=== PATIENT | male | born 1960 | race Caucasian/White ===

== ENCOUNTER 2023-08-26 15:41 | Inpatient (IN) ==
[2023-08-26 16:55] LABS: Basophils # (auto) 0.06 K/uL (0.00-0.20); Basophils % (auto) 0.3 %; Eosinophils # (auto) 0.03 K/uL (0.00-0.50); Eosinophils % (auto) 0.1 %; Hematocrit (blood only) 40.8 % (42.0-52.0); Hemoglobin 13.4 g/dl (14.0-18.0); Immature Granulocytes # (auto) 0.16 K/uL (0.01-0.20); Immature Granulocytes % (auto) 0.7 %; Lymphocytes # (auto) 1.85 K/uL (1.20-3.40); Lymphocytes % (auto) 8.2 %; Mean Corpuscular Hemoglobin 25.4 pg (25.0-34.0); Mean Corpuscular Hgb Conc 32.8 g/dL (32.0-36.0); Mean Corpuscular Volume 77.3 fL (80.0-100.0); Mean Platelet Volume 10.6 fL (9.4-12.4); Monocytes # (auto) 1.41 K/uL (0.11-0.59); Monocytes % (auto) 6.3 %; Neutrophils # (auto) 18.94 K/uL (1.40-6.50); Neutrophils % (auto) 84.4 %; Platelet Count 415 K/uL (130-400); RDW Coefficient of Variation 14.7 % (11.5-14.5); RDW Standard Deviation 40.7 fL (36.4-46.3); Red Blood Count 5.28 M/uL (4.70-6.10); White Blood Count 22.45 K/ul (4.8-10.8)
[2023-08-26 17:06] LABS: Albumin Globulin Ratio 0.9 (0.9-2); Albumin Level 4.2 gm/dl (3.4-5.0); BUN Creatinine Ratio 24.8 (10-20); Bilirubin,Total 0.7 mg/dl (0.2-1.0); Calcium 9.6 mg/dl (8.6-10.3); Creatinine Clr Calc Pharmacy 88.5 ml/min; Est GFR (African American) 80.9 ml/min; Est GFR (Non-African American) 69.8 ml/min; Globulin 4.8 gm/dl (2.5-4.0); Magnesium 1.9 mg/dl (1.7-2.4); Potassium 3.8 mmol/L (3.5-5.1)
[2023-08-26 17:13] LABS: Troponin I High Sensitivity 9.2 pg/ml (0-20)
[2023-08-26 17:19] LABS: INR 1.1 (0.9-1.1); Partial Thromboplastin Ratio 1.2; Partial Thromboplastin Time 31 Seconds (21-31); Prothrombin Time 11.7 Seconds (9.0-12.0)
--- NOTE | 2023-08-26 17:29 | XRay Report ---
XR foot RT min 3V routine CLINICAL HISTORY: redness, swelling, pain TECHNIQUE: 3 views of the right foot were obtained. Comparison: None available at the time of this dictation. FINDINGS: No fractures are present. The joint spaces are well preserved. Soft tissue swelling is seen about the foot. IMPRESSION: Soft tissue swelling is seen without evidence of underlying bony abnormality. ACT 112: Negative or not required by law. Electronically signed by: Conor Can M.D. 08/26/2023 5:28 PM
[2023-08-26] MEDS ORDERED: VANCOMYCIN CONSULT ACTIVE PRN (18:27)
[2023-08-26] MEDS: CEFEPIME 2,000 MG/20 ML VIAL IV STA (18:36)
--- NOTE | 2023-08-26 18:43 | Emergency Department Note ---
Impression & Plan Cellulitis, Leukocytosis, Diabetes, Acute hyponatremia ED Provider Note NAME: LAUREN ZEE AGE: 62 SEX: M : 1960 ARRIVES VIA: Walk-In INFORMANT: [Patient] ED PROVIDER(S): [Robert Small MD] CHIEF COMPLAINT: Foot infection HISTORY OF PRESENT ILLNESS: The patient is a 62-year-old diabetic. He states that several months ago, he had a sore on the underside of the right foot. He states that it seemed fine eventually. About a week ago, he noticed some bloody discharge when he was getting a shower. He states that 3 days ago, he noticed redness of the right foot. He has noticed some nausea, no fever. There has been no diarrhea, no flulike symptoms. No cough or cold or congestion. The patient states the redness is now creeping up his leg. PMHx/PSHx/Social Hx: See Below PHYSICAL EXAM: GENERAL: Patient is in no acute distress. HEENT: No acute trauma, normocephalic atraumatic, mucous membranes moist, no nasal congestion. NECK: No stridor, no adenopathy, no meningismus, trachea is midline. LUNGS: Clear to auscultation bilaterally, no wheeze, no rhonchi, breath sounds equal. HEART: Without murmurs gallops or rubs, regular rate and rhythm. ABDOMEN: Soft, nontender, no peritonitis. EXTREMITIES: No cyanosis. The patient has a collection of blood underneath the skin along the lateral aspect of the distal right foot involving the proximal aspect of the right fifth toe. There is surrounding erythema that is spreading up the dorsum of the foot and there are red streaks up the leg. There is no active drainage. There is an old healing lesion to the underside of the right distal lateral plantar foot. There is warmth present in the areas of erythema. NEUROLOGIC: Oriented x 3, no acute motor or sensory deficits, no focal weakness. SKIN: No jaundice, no diaphoresis. DIFFERENTIAL DIAGNOSIS: Osteomyelitis, cellulitis, abscess, bacteremia, among others. EMERGENCY DEPARTMENT PROCEDURES: Abscess drainage: This procedure was performed by me. Using sterile technique. An 18-gauge needle was used to open the collection of fluid/blood to the lateral aspect of the right foot. A dressing was applied. No complication. A culture was sent. MEDICAL DECISION MAKING: There is a significant leukocytosis at 22,000. This would be consistent with infection. No concerning anemia. Platelet count slightly elevated at 415. There was no coagulopathy. Renal panel testing showed acute hyponatremia with a sodium of 126. No renal failure. Cardiac enzyme testing x 1 was not consistent with acute cardiac injury. Lactic acid level was not elevated making severe sepsis less likely. Procalcitonin level was elevated, consistent with a bacterial source for infection. Urinalysis did not show findings of infection. Right foot film did not show osteomyelitis or fracture. Right foot CT did not show osteomyelitis, cellulitis was seen. The patient received IV vancomycin and IV cefepime. This was given for broad spectrum antibiotic coverage. The patient is in need of a hospital stay. I did speak with him about the admission. I was able to open the blood filled lesion along the lateral aspect of the foot. A culture was sent. I spoke with case management, the on-call hospitalist was consulted. Prior/Outside records/notes reviewed: None Imaging/x-ray results per my interpretation: Right foot film shows no fracture or dislocation, no osteomyelitis. Chronic Medical/Social conditions affecting care: History of diabetes. Care/Management discussed with: Case management, the on-call hospitalist. Level of care consideration(s): After review of the information above and other included data: --I believe the patient requires escalation of care to admission DISPOSITION: Admission Past Med/Surg History Problem List (Updated 08/27/23 @ 11:47 by Robert Small MD) Acute hyponatremia (Acute) Diabetes (Acute) Leukocytosis (Acute) Cellulitis (Acute) Peripheral neuropathy Diabetic infection of right foot Medical History Type 2 diabetes mellitus Social History Smoking Status: Former smoker Hx Alcohol Use: No Hx Substance Use: No Preferred Language: Icelandic Communication Ability: Effective Guest Services Ambassador Required: No Beliefs That Will Affect Care: None Current Living Situation: Alone Other Information That Helps Us Care for You: No Feels Safe at Home: Yes Safety Concerns: Feels Safe At This Time Assistive Devices: Denture - Upper and Glasses Allergies Allergies Allergy/AdvReac Type Severity Reaction Status Date / Time No Known Allergies Allergy Unverified 08/27/23 09:17 Home Meds Home Medications Medication Instructions Recorded Confirmed None (Patient States No Home Meds) ##0 11/20/09 Results & Data (ED) Vital Signs Vital Signs - 24 hr 08/26/23 15:48 08/26/23 18:35 08/26/23 18:35 Temperature 36.7 C Temperature Source Temporal Artery Scan Pulse Rate 112 H 88 Pulse Rate [Apical] 88 Pulse Rhythm [Apical] Regular Pulse Strength [Apical] Normal Respiratory Rate 24 Respiratory Effort / Characteristics Non-Labored Spontaneous Non-Labored Respiratory Depth Normal Normal Respiratory Pattern Regular Blood Pressure 151/74 H Blood Pressure [Right Arm] 159/82 H Blood Pressure Mean 99 Blood Pressure Mean [Right Arm] 107 Pulse Oximetry 95 96 96 Oxygen Delivery Method Room Air Room Air Room Air Sepsis Recent Fever Within 48 Hours No Sepsis New/Unexplained Change in Mental Status No Sepsis Action Taken by Nursing No Action Required 08/26/23 18:37 Temperature Temperature Source Pulse Rate 87 Pulse Rate [Apical] Pulse Rhythm [Apical] Pulse Strength [Apical] Respiratory Rate Respiratory Effort / Characteristics Respiratory Depth Respiratory Pattern Blood Pressure Blood Pressure [Right Arm] Blood Pressure Mean Blood Pressure Mean [Right Arm] Pulse Oximetry Oxygen Delivery Method Sepsis Recent Fever Within 48 Hours Sepsis New/Unexplained Change in Mental Status Sepsis Action Taken by [facility] Medications Current Medication List: was personally reviewed by me Laboratory Data Attestation: I reviewed the patient's lab results. 08/27/23 06:54 08/27/23 06:54 Lab Results 08/26/23 08/26/23 Range/Units 16:01 16:10 WBC 22.45 H (4.8-10.8) K/ul RBC 5.28 (4.70-6.10) M/uL Hgb 13.4 L (14.0-18.0) g/dl Hct 40.8 L (42.0-52.0) % MCV 77.3 L (80.0-100.0) fL MCH 25.4 (25.0-34.0) pg MCHC 32.8 (32.0-36.0) g/dL RDW Std Deviation 40.7 (36.4-46.3) fL RDW Coeff of Mel 14.7 H (11.5-14.5) % Plt Count 415 H (130-400) K/uL MPV 10.6 (9.4-12.4) fL Immature Gran % (Auto) 0.7 % Neut % (Auto) 84.4 % Lymph % (Auto) 8.2 % [place] % (Auto) 6.3 % Eos % (Auto) 0.1 % Baso % (Auto) 0.3 % Neut # (Auto) 18.94 H (1.40-6.50) K/uL Lymph # (Auto) 1.85 (1.20-3.40) K/uL [place] # (Auto) 1.41 H (0.11-0.59) K/uL Eos # (Auto) 0.03 (0.00-0.50) K/uL Baso # (Auto) 0.06 (0.00-0.20) K/uL Immature Gran # (Auto) 0.16 (0.01-0.20) K/uL PT 11.7 (9.0-12.0) Seconds INR 1.1 (0.9-1.1) APTT 31 (21-31) Seconds PTT Ratio 1.2 Sodium 126 L (136-145) mmol/L Potassium 3.8 (3.5-5.1) mmol/L Chloride 92 L (98-107) mmol/L Carbon Dioxide 23 (21-32) mmol/L Anion Gap 11 (3-11) BUN 28 H (6-23) mg/dl Creatinine 1.13 (0.6-1.4) mg/dl Est Cr Clr Drug Dosing 88.5 ml/min Est GFR ( Amer) 80.9 ml/min Est GFR (Non-Af Amer) 69.8 ml/min BUN/Creatinine Ratio 24.8 H (10-20) Glucose 186 H (70-99(Fasting)) mg/dl Lactate 1.6 (0.4-2.0) mmol/L Calcium 9.6 (8.6-10.3) mg/dl Magnesium 1.9 (1.7-2.4) mg/dl Total Bilirubin 0.7 (0.2-1.0) mg/dl AST 15 (13-39) U/L ALT 12 (7-52) U/L Alkaline Phosphatase 81 (34-104) U/L Troponin I High Sens 9.2 (0-20) pg/ml Total Protein 9.0 H (6.0-8.3) gm/dl Albumin 4.2 (3.4-5.0) gm/dl Globulin 4.8 H (2.5-4.0) gm/dl Albumin/Globulin Ratio 0.9 (0.9-2) Procalcitonin 1.04 H (0-0.5) ng/ml Administered Medications Enoxaparin Sodium (Enoxaparin Inj 40 Mg/0.4 Ml Syr) 40 mg SQ Q24H ANA Stop: 09/26/23 08:59 Last Admin: 08/27/23 08:09 Dose: 40 mg Documented By: CHINEDU Ampicillin Sodium/Sulbactam Sodium 3,000 mg/ Sodium Chloride 100 mls @ 200 mls/hr IV Q6H ANA Stop: 09/03/23 09:59 Last Infusion: 08/27/23 11:08 Dose: Infused Documented By: Admin: 08/27/23 10:29 Dose: 200 mls/hr Documented By: CHINEDU Insulin Aspart (Insulin Aspart Per Unit Charge) 0 units SC ACHS ANA Stop: 09/25/23 20:59 Last Admin: 08/27/23 08:06 Dose: 5 units Documented By: CHINEDU Co-signed By: JAIME Admin: 08/26/23 20:34 Dose: 3 units Documented By: KAMRYN Co-signed By: ELAYNE Discontinued Medications Cefepime HCl (Maxipime) 2,000 mg in 20 mls @ 5 mls/min IV NOW STA; Protocol Stop: 08/26/23 18:30 Last Admin: 08/26/23 18:36 Dose: 5 mls/min Documented By: TERRA Vancomycin HCl 2,750 mg/ (Sodium Chloride) 555 mls @ 200 mls/hr IV NOW ONE Stop: 08/26/23 21:13 Last Infusion: 08/26/23 23:31 Dose: Infused Documented By: Admin: 08/26/23 20:34 Dose: 200 mls/hr Documented By: KAMRYN Cefepime HCl 2,000 mg/ Syringe 27.5 mls @ 5 mls/min IV Q12H ANA; Protocol Stop: 09/02/23 06:29 Last Admin: 08/27/23 05:42 Dose: 5 mls/min Documented By: KAMRYN Vancomycin HCl 1,000 mg/ (Sodium Chloride) 270 mls @ 200 mls/hr IV Q12H ANA Stop: 09/03/23 07:59 Last Infusion: 08/27/23 10:06 Dose: Infused Documented By: Admin: 08/27/23 08:45 Dose: 200 mls/hr Documented By: CHINEDU Ioversol (Optiray 320 100ml) 93 ml IV ONCE ONE Stop: 08/26/23 18:57 Last Admin: 08/26/23 18:56 Dose: 93 ml Documented By: JASBIR Imaging Data Radiologist's Impression: Foot CT 08/26/23 18:27 Exam(s): CT RIGHT FOOT With Contrast IV Amt: 93 ML OPTIRAY 320 EXAM: CT Right Lower Extremity With Intravenous Contrast, Foot CLINICAL HISTORY: Poss osteo. TECHNIQUE: Axial computed tomography images of the right foot with intravenous contrast. CTDI is 19.67 mGy and DLP is 406.11 mGy-cm. Automated exposure control was utilized for the study. A dose lowering technique was utilized adhering to the principles of ALARA. CONTRAST: Patient received 93 ML OPTIRAY 320 of IV contrast COMPARISON: X-ray right foot 08-26-2023. FINDINGS: Bones/joints: No bone erosion, periosteal reaction or destruction to suggest osteomyelitis. No acute fracture. No dislocation. Soft tissues: Soft tissue swelling greatest surrounding lateral aspect of the foot centered at the distal fifth metatarsal. Cutaneous thickening, irregularity gas and enhancement of the at the level of the plantar aspect of the distal fifth metatarsal. No abnormal contrast enhancement. No radiopaque foreign body. IMPRESSION: Lateral and plantar soft tissue swelling centered at the distal aspect of the fifth metatarsal consistent with cellulitis. Focal cutaneous thickening, irregularity gas and enhancement of the at the level of the plantar aspect of the distal fifth metatarsal consistent with a phlegmon and possible small superficial ruptured abscess. No radiopaque foreign body. No underlying osseous changes to indicate osteomyelitis. Electronically signed by: Ronny Pizarro M.D. 08/26/23 23:41 PM Discharge Plan Visit Data Chief Complaint: Foot Injury/Pain Stated Complaint: RT FOOT PAIN ED Provider: Robert Small Discharge Problem: Cellulitis, Leukocytosis, Diabetes, Acute hyponatremia Patient Disposition: Admitted As Inpatient Condition: Good Discharge Instructions Interventions: ED Discharge Assessment Last Done: 07/19/24 20:28 Discharge Problem: Cellulitis Qualifiers: Site of cellulitis: extremity Site of cellulitis of extremity: lower extremity Laterality: right Qualified Code(s): L03.115 - Cellulitis of right lower limb Leukocytosis Qualifiers: Leukocytosis type: unspecified Qualified Code(s): D72.829 - Elevated white blood cell count, unspecified
[2023-08-26] MEDS: OPTIRAY 320 100ml IV ONE (18:56)
--- NOTE | 2023-08-26 19:26 | History & Physical Report ---
Date of Service August 26, 2023 Assessment & Plan (1) Diabetic infection of right foot: Plan: -Patient with abscess and surrounding cellulitis of the right foot. -Abscess drained done in the ED on the lateral aspect of the right distal foot. -X-ray showed soft tissues swelling without evidence of underlying bone abnormalities. -CT of the right foot taken and are pending read to rule out osteo-. -Blood cultures and wound cultures pending. -Leukocytosis of 22.4. Will repeat CBC in the a.m. -Started on vancomycin and cefepime in the ED. Continued on admission. (2) Type 2 diabetes mellitus: Plan: -Patient's home regimen held on admission, though patient does not know what he takes at home. -Continue BSG checks, sliding-scale insulin, hypoglycemic protocol -Hemoglobin A1c ordered in AM. (3) Peripheral neuropathy: Plan: -Patient with peripheral neuropathy on physical exam -Most likely secondary to diabetes. Should have outpatient follow-up with PCP. Plan Fluids: none Nutrition: DM2 Code status: DNR/DNI DVT ppx: Lovenox Dispo: med/surg History of Present Illness Chief Complaint: Diabetic foot infection Primary Care Provider: NO PCP Patient is a 62-year-old male who presents to the hospital with diabetic foot infection. Patient states that he has a history of diabetes though does not know what he is currently taking. Denies any other medical history. Patient had a sore on the underside of his right foot since Tuesday. Had some bloody discharge approximately 3 days ago. States that it is not painful. Though does state that he has decreased feeling on bilateral feet. He also noticed approximately 3 days ago the redness started to move up his leg. Denies any fever, chills, nausea, vomiting, abdominal pain, chest pain, cough, or congestion. Allergies Allergy/AdvReac Type Severity Reaction Status Date / Time No Known Allergies Allergy Unverified 08/27/23 09:17 Home Medications Medication Instructions Recorded Confirmed Type None (Patient States No Home Meds) ##0 11/20/09 History Past Med/Surg History Problem List (Updated 08/27/23 @ 11:47 by Robert Small MD) Acute hyponatremia (Acute) Diabetes (Acute) Leukocytosis (Acute) Cellulitis (Acute) Peripheral neuropathy Diabetic infection of right foot Medical History Type 2 diabetes mellitus Social History Smoking Status: Former smoker Hx Alcohol Use: No Hx Substance Use: No Preferred Language: Kinyarwanda Communication Ability: Effective Body Specialist Required: No Beliefs That Will Affect Care: None Current Living Situation: Alone Other Information That Helps Us Care for You: No Feels Safe at Home: Yes Safety Concerns: Feels Safe At This Time Assistive Devices: Denture - Upper and Glasses Review of Systems Review of Systems: All systems reviewed & are unremarkable except as noted in Subjective Physical Exam Physical Exam: Constitutional: well-appearing, no acute distress HEENT: NCAT, no conjunctival injection CV: regular rhythm, no murmur appreciated, extremities well-perfused, no LE edema Resp: CTABL, no wheezes/rales/rhonchi appreciated, no increased work of breathing GI: soft, nondistended, nontender, BS normoactive MSK: no gross deformities appreciated Skin: Right foot wrapped, erythema and warmth along right foot and up the right lower leg Neuro: alert, oriented, decreased sensation bilaterally under 1, 3, and 5th m etatarsal heads. Results & Data Results & Data Vital Signs (Past 12 Hours) Vital Signs Temp Pulse Pulse Resp BP BP Pulse Ox 08/26/23 18:37 87 08/26/23 18:35 88 24 159/82 H 96 08/26/23 18:35 88 24 96 08/26/23 15:48 36.7 C 112 H 15 151/74 H 95 O2 Del Method 08/26/23 18:37 08/26/23 18:35 Room Air 08/26/23 18:35 Room Air 08/26/23 15:48 Room Air Supervising Physician Co-Signing Physician Notes Attending addendum: I have physically seen this patient, have supervised the medical residents activities, and agree with the H&P unless as otherwise noted. Assessment and Plan: Diabetic foot infection right foot- Abscess drained in the ED Follow wound culture and sensitivity Follow blood culture and sensitivity Empiric antibiotic coverage with vancomycin IV and cefepime IV, already begun in the ED Arterial studies if symptoms unresponsive to treatment Diabetes mellitus- Glucose 186 on admission Patient unclear of what his medications are. Placed on Accu-Cheks NovoLog with SSI Check hemoglobin A1c Diabetic peripheral neuropathy- Apparent on examination Review medication list to see if he is presently being treated May deserve EMG and nerve conduction studies along with arterial studies above
[2023-08-26] MEDS ORDERED: GLUCOSE 10 TAB/TUBE PO PRN (20:20)
[2023-08-26] MEDS ORDERED: GLUCOSE 40% GEL 15 GM TUBE PO PRN (20:20)
[2023-08-26] MEDS ORDERED: ONDANSETRON INJ 2 MG/ML 2 ML VIAL IV PRN (20:20)
[2023-08-26] MEDS ORDERED: DEXTROSE 50% 50 ML SYRINGE IV PRN (20:20)
[2023-08-26] MEDS ORDERED: ACETAMINOPHEN 325 MG TAB PO PRN (20:20)
[2023-08-26] MEDS ORDERED: CARBOHYDRATES FOR HYPOGLYCEMIA PO PRN (20:20)
[2023-08-26] MEDS ORDERED: MELATONIN 3 MG TAB PO PRN (20:20)
[2023-08-26] MEDS ORDERED: GLUCAGON FOR INJ 1 MG VIAL SQ PRN (20:20)
[2023-08-26 20:28] LABS: Appearance Urine Clear (Clear); Bacteria Urine Automated None Seen (None Seen); Bilirubin Urine Negative (Negative); Blood Urine Negative (Negative); Cast Urine Automated 0-2 /lpf (0-2); Color Urine Yellow; Epithelial Cell Urine Auto 0-2 /hpf (0-2); Glucose Urine UA Negative (Negative); Ketones Urine 1+ (Negative); Leukocyte Esterase Urine Negative (Negative); Nitrite Urine Negative (Negative); Protein Urine 1+ (Negative); RBC Urine Automated 0-2 /hpf (0-2); Specific Gravity Urine 1.045 (1.000-1.030); Urobilinogen Urine Negative (Negative); WBC Urine Automated 0-5 /hpf (0-5)
[2023-08-26] MEDS: VANCOMYCIN HCL 2,750 MG in SODIUM CHLORIDE 0.9% 500 ML IV ONE (20:34)
[2023-08-26] MEDS: INSULIN ASPART PER UNIT CHARGE SC SCH (20:34)
--- OUTSIDE RECORDS SUMMARY | 2023-08-26 22:27 | External Medical Summary | Continuity of Care Document ---
Author Name Unknown Organization [facility] Address [address] [place] [address] Phone [phone] Problems Active Problems Provider Date Ex-smoker Aaron Whitney PA-C Onset: Essential hypertension Aaron Whitney PA-C Ons et: 12/22/2016 Hyperlipidemia Aaron Whitney PA-C Onset: Impotence of organic origin PRESTON Vargas Onset: 12/22/2016 Type II diabetes mellitus uncontrolled Aaron Whitney PA-C Onset: 12/22/2016 History of polyp of colon Aaron Whitney PA-C Onset: 12/22/2016 Obesity Aaron Whitney PA-C Onset: Generalized anxiety disorder ISRA Vargas Onset: 12/22/2016 Mixed hyperlipidemia Aaron Whitney PA-C Onset : 12/22/2016 Social History Type Date Description Comments Sex Unknown Cigarette Use 03/16/2023 Quit - Age 55 Tobacco Use Start: Unknown End: Unknown Former Cigarette Smoker Smoking Status Reviewed: 03/16/23 Former Cigarette Smo ker Tobacco Use Reviewed: 03/16/23 Never Smoked Cigars Tobacco Use Reviewed: 03/16/23 Never Smoked A Pipe Smokeless Tobacco 03/16/2023 Never Used Smokeless To bacco ETOH Use Rarely consumes alcohol Recreational Drug Use Denies Drug Use Allergies and adverse reactions Description No Known Drug Allergies Medications Active Medications SIG Qnty Indications Order ing Provider Date Ferrous Xgnauaq490(65Fe) mg Tablets take 1 tablet by mouth twice a day 180tabs Елена Young MD 08/23/2022 Onetouch VerioStrips use 1 Test Strip to Test Blood Sugar once daily 200units Hector Hsu JR, MD 07/30/2022 Trulicity1.5mg/0.5ML Solution Pen-Inject inject 0.5 milliliters once weekly 6ml Елена Young MD 05/24/2022 Vitamin [id number]-[id number] Tablets Sub take 2 tablets by mouth daily 180tabs Елена Young MD 01/12/2022 Lisinopril-Hydrochlo ghdxnmeznr81-52.5mg Tablets Take 1 Tablet By Mouth Once Daily 90tabs I10 Елена Young MD 12/09/2021 Cetirizine SOW22fd Tablets 1 by mouth every day 90tabs Елена Young MD 06/11/[address] take 1 tablet by mouth daily 90caps Елена Young MD 11/05/2020 Metoprolol Acamylhd15vu Tablets take 1 tablet by mouth twice a day 180tabs I48.0 Елена Young MD 11/05/2020 Fast Acting H259417yrj Tablets Sub 2 by mouth every day 180tabs D64.9 Víctor Blancas MD 11/05/2020 Metformin QPG8715mz Tablets take 1 tablet by mouth twice a day 180tabs Елена Young MD 06/05/2019 NebulizerMisc with supplies - use as directed 1units R05 Hector Hsu JR, MD 04/30/2019 R06.2 Z87.891 Ipratropium [place]/Albutero l Sulfate0.5-2.5(3)mg/3ML Solution use in nebulizer four times daily as needed 90units R05 Hector Hsu JR, MD 04/30/2019 Glipizide ER10mg Tablets ER 24HR Take One Tablet By Mouth Twice A Day 180tabs E11.65 Елена Young MD 01/22/2019 Utjffkgvjxu872es Tablets take 1 tablet b y mouth twice a day 180tabs Елена Young MD 01/09/2019 Atorvastatin Hzcuupp17cm Tablets Take 1 Tablet By Mouth Every Evening 90tabs E78.2 Елена Young MD 11/03/2018 History Medications Diclofenac Sodium1% Gel apply 4gm to affected area four times daily as needed 900gm Елена Young MD 02/21/2023 - 02/28/2023 Purbaapyxe15iz Tablets two tablets x 5 days then one tablet daily x 5 days 15tabs Елена Young MD 02/21/2023 - 03/16/2023 Medications Administered in Office Medication SIG Qnty Indications Ordering Provider Date Injection Kenalog 10 MG [facility] [id number] Gage Addison 03/16/2023 Immunizations CPT Code Status Date Vaccine Lot # [id number] Given 01/06/2021 Moderna Covid-1 9 Vaccine 50mcg Booster-EMR Doc Only [id number] 86487 Given 10/16/2020 Influenza Vaccine-Adminis tered at another facility 53694 Given 10/16/2020 Pneumococcal Conjugate-Pr evnar 13 [id number] Given 06/06/2020 Moderna Sars-Co v-2 (Cov-19) vacc,100 mcg/ 0.5 mL 12Y+EMR Doc Only [id number] 64958 Given 05/09/2020 Moderna Sars-Co v-2 (Cov-19) vacc,100 mcg/ 0.5 mL 12Y+EMR Doc Only [id number] 76050 Given 10/08/2019 Influenza Vaccine-Adminis tered at another facility 72212 Given 10/08/2019 Shingrix 45433 Given 09/14/2019 Pneumococcal Vaccine/Pneu movax 23 [id number] 99316 Given 08/05/2019 Shingrix 33579 Given 10/25/2018 Influenza Virus Vaccine, Quadrivalent (Cciiv4), Derived From Cell 85691 Given 05/05/2018 Pneumococcal Vaccine/Pneu movax 23 [id number] 73345 Given 05/05/2018 Tdap (Tetanus, diphtheria & acel. pertussis) Adacel or Boostrix [id number] 10198 Given 11/12/2017 Influenza Virus Vaccine, Quadrivalent (Cciiv4), Derived From Cell 24436 Given 12/22/2016 Pneumococcal Conjugate-Pr evnar 13 [id number] 21403 Given 11/09/2016 Influenza Vaccine-Adminis tered at another facility Vital Signs Date Vital Result Comment 03/16/2023 9:04am BP Systolic 136 mmHg BP Diastolic 80 mmHg Body Temperature 98.6 F Heart Rate 70 /min Weight 259.00 lb Weight 117.482 kg Height 72 inches 6'0" BMI (Body Mass Index) 35.1 kg/m2 O2 % BldC Oximetry 97 % [place] Body Weight 178 lb 02/21/2023 3:17pm BP Systolic 122 mmHg BP Diastolic 82 mmHg Body Temperature 98.2 F Heart Rate 68 /min Weight 258.25 lb Weight 117.142 kg Height 72 inches 6'0" BMI (Body Mass Index) 35.0 kg/m2 O2 % BldC Oximetry 98 % [place] Body Weight 178 lb Results Test Acquired Date Facility Test Result H/L Range N ote Comp. Met 02/16/2023 [facility]. [address] [place] [address] [phone] Glucose 176 mg/dL High 70-110 BUN 19 mg/dL 6-25 Creatinine 1.1 mg/dL 0.7-1.3 Sodium 134 mEq/L Low 135-145 Potassium 4.9 mEq/L 3.5-5.0 Chloride 99 mEq/L 95-107 Co-2 23 mEq/L Low 24-31 Alk Phos 76 IU/L 43-122 Alt(SGPT) 16 IU/L 10-40 Ast(Sgot) 18 IU/L 3-42 T.Bilirubin 0.4 mg/dL 0.1-1.3 Calcium 9.8 mg/dL 8.5-10.6 Tot.Protein 7.7 g/dL 5.8-8.0 Albumin 4.5 g/dL 3.0-5.2 Globulin 3.2 g/dL 2.0-3.4 GFR 72 ML/MIN/1.73SQM >60 Lipid 02/16/2023 [facility]. [address] [place] [address] [phone] Cholesterol 132 mg/dL 0-200 1 Triglyceride 238 mg/dL High 0-150 2 HDLD 32 mg/dL See Comment 3 Measured LDL 82 mg/dL 0-130 4 Calc VLDL 47.6 mg/dL See Comment 5 Chol/HDL 4.1 RATIO See Comment 6 Non-HDL 100 mg/dL See Comment 7 Laboratory test finding 02/16/2023 [facility] [address] [place] [address] [phone] TSH 2.46 uIU/mL 0.50-6.00 Uric Acid 6.6 mg/dL 2.5-7.5 Hba1c 02/16/2023 [facility] [address] [place] [address] [phone] A1c 10.40 % High 4.70-6.50 8 CBC W/Diff 02/16/2023 [facility] [address] [place] [address] [phone] WBC 9.5 10^3/M3 High 3.1-9.2 RBC 5.71 10^6/M3 4.00-5.80 HGB 13.9 GR/DL 12.5-17.5 HCT 44.0 % 37.5-52.5 MCV 77.0 CUMICR Low 82.6-95.8 MCH 24.4 PICOGR Low 27.9-32.9 MCHC 31.6 % Low 32.6-35.4 RDW 16.4 % High 11.4-14.6 PLT 357 10^3/M3 High 140-350 MPV 8.8 CUMICR 7.0-10.6 %Neut 68.0 % 40.0-75.0 %Lymph 22.6 % 17.0-45.0 %[place] 6.4 % 1.0-11.0 %Eos 2.2 % 0.0-6.0 %Baso 0.8 % 0.0-2.0 #Neut 6.5 10^3/M3 1.5-8.0 #Lymph 2.2 10^3/M3 0.8-3.2 #[place] 0.6 10^3/M3 0.0-0.8 #Eos 0.2 10^3/m3 0.0-0.4 #Baso 0.1 10^3/m3 0.0-0.2 Hypochrom 1+ Urinalysis,Cult If Indicated 02/16/2023 [facility] [address] [place], [place] [id number] [phone] RFLX Culture NO Laboratory test finding 02/16/2023 [facility] [address] [place] [address] [phone] Psa2 1.1 ng/mL 0.0-4.0 Microalbumin Urine 02/16/2023 Replaced by [facility]. [address] [place] [address] [phone] Urine Creat 102 mg/dL Comment Microalbumin 1.7 mg/dL 0.0-1.8 9 ug/mgCREATININE 17 ug/mg 0-29 Urinalysis 02/16/2023 [facility] [address] [place] [address] [phone] Color LIGHT-YELLOW Appearance CLEAR Clear Spec.Grav. 1.017 1.005-1.025 Leukocytes NEGATIVE Negative Nitrite NEGATIVE Negative PH 5.5 Low 6.0-7.5 Protein NEGATIVE Negative Urine Glucose NEGATIVE Negative Ketone NEGATIVE Negative Urobilinogen NORMAL E.U./DL Normal Bilirubin NEGATIVE Negative Blood NEGATIVE Negative WBC-U 0-2 /HPF 0-5/HPF RBC-U 0-2 /HPF 0-5/HPF Bacteria NONE SEEN None Seen Hyaline Casts 6-10 /LPF Abnormal None Seen Squamous NONE SEEN /HPF 0-5/HPF 1 CHOLESTEROL Less than 200mg/dl Low risk 201-239 mg/dl Borderline risk Equal to or greater 240mg/dl High risk 2 TRIGLYCERIDES Less than 150mg/dl Normal 150-199mg/dl Borderline 200-499mg/dl High Greater than 500mg/dl Very High 3 HDL <40mg/dl Elevated Risk 41-59mg/dl Risk >=60mg/dl Least Risk 4 LDL <100mg/dl Optimal 100-129mg/dl Near Optimal 130-159mg/dl Borderline High 160-189mg/dl High >=190 Very High 5 VLDL Less than 30mg/dl Normal 6 CHOL/HDL <4.0 Optimal 4.0-5.0 Borderline >6.0 High Risk 7 NON-HDL 30mg/dl higher than LDL Target 8 MEAN GLUCOSE IN mg/d L/A1c% POOR CONTROL FAIR CONTROL GOOD CONTROL EXCELLENT CONTROL 360-14 210-9 180-8 120-6 330-13 150-7 90-5 300-12 270-11 240-10 9 *[employer] USES MICROALBUMIN/CREATINE RATIO : *<30 ug/mg CREATININE IS CLASSIFIED NORMAL *30-300 ug/mg CREATININE IS CLASSIFIED CLINICAL MICROALBUMINURIA *>300 ug/mg CREATININE IS CLASSIFIED CLINICAL ALBUMINURIA CLASSIFICATION OF A PATIENT SHOULD BE BASED ON TWO OF THREE ABNORMAL RESULTS COLLECTED WITHIN A 3 TO 6 MONTH TIME FRAME* Procedures Date Code Description Status 03/16/2023 M1211 Hemoglobin a1c level >9.0% C ompleted 03/16/2023 J3301 Injection Kenalog 10 MG [facility] [id number] Completed 03/16/2023 27592 Inject/Drain Arthrocentesis Major Joint/Bursa Completed 02/21/2023 3079F PVRP Diastolic BP 80-89 MMHG Completed 02/21/2023 3074F PVRP Systolic BP <130 mmHg C ompleted 02/21/2023 3046F PVRP HGB-A1c > 9.0% Complete d 02/16/2023 11955 Venipuncture Routine Complet ed 06/04/2021 [id number] Colonoscopy Completed Medical Devices Description No Information Available Encounters Type Date Location Provider Dx Diagnosis Office Visit 03/16/2023 9:15a Natasha Sandoval PA-C M75.52 Bursitis of left shoulder E11.65 Type 2 diabetes lorri itus with hyperglycemia Office Visit 02/21/2023 3:30p Natasha rodas PA-C Z00.01 Encounter for general adult medical exam w abnormal findings I10 Essential (primary) hypertension E78.2 Mixed hyperlipidemia E11.65 Type 2 diabetes lorri itus with hyperglycemia I48.0 Paroxysmal atrial fi brillation 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, unspecified M75.52 Bursitis of left kuldip ulder Assessments Date Code Description Provider 03/16/2023 M75.52 Bursitis of left shoulder Cameron Sandoval PA-C 03/16/2023 E11.65 Type 2 diabetes mellitus wit h hyperglycemia Enrique Sandoval PA-C 02/21/2023 Z00.01 Encounter for ge neral adult medical examination with abnormal findings Enrique Sadnoval PA-C 02/21/2023 I10 Essential (primary) hyperten misty Enrique Sandoval PA-C 02/21/2023 E78.2 Mixed hyperlipidemia Enrique Sandoval PA-C 02/21/2023 E11.65 Type 2 diabetes mellitus wit h hyperglycemia Enrique Sandoval PA-C 02/21/2023 I48.0 Paroxysmal atrial fibrillati on Enrique Sandoval PA-C 02/21/2023 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, unsp ecified Enrique Sandoval PA-C 02/21/2023 M75.52 Bursitis of left shoulder Cameron Sandoval PA-C 02/16/2023 I10 Essential (primary) hyperten misty Елена Young MD 02/16/2023 I10 Essential (primary) hyperten misty Lab - [facility] 02/16/2023 E78.2 Mixed hyperlipidemia Елена Young MD 02/16/2023 E78.2 Mixed hyperlipidemia Lab - [place] 02/16/2023 E11.65 Type 2 diabetes mellitus wit h hyperglycemia Елена Young MD 02/16/2023 E11.65 Type 2 diabetes mellitus wit h hyperglycemia Lab - [facility] 02/16/2023 Z00.01 Encounter for ge neral adult medical examination with abnormal findings Елена Young MD 02/16/2023 Z00.01 Encounter for ge neral adult medical examination with abnormal findings Lab - [facility] 02/16/2023 N40.0 Benign prostatic hyperplasia without lower urinary tract symptoms Елена Young MD 02/16/2023 N40.0 Benign prostatic hyperplasia without lower urinary tract symptoms Lab - [facility] Plan of Treatment Future Appointment(s):* 08/22/2023 3:00 pm - Enrique Sandoval PA-C at [facility] * 08/16/2023 8:15 am - Lab - [facility] 03/16/2023 - Enrique Sandoval PA-C* M75.52 Bursitis of left shoulder* Comments:* Requesting injection Advised to consider physical therapy and PT if symptoms persist * E11.65 Type 2 diabetes mellitus with hyperglycemia* Comments:* Aware to notify us of blood sugar spike Noncompliant and monitoring blood sugars * Recommendations:* Follow diabetic diet. Continue medications as prescribed. Functional Status Description No Information Available Mental Status Description No Information Available Referrals Description No Information Available
--- OUTSIDE RECORDS SUMMARY | 2023-08-26 22:27 | External Medical Summary ---
Continuity of Care Document (CCD) Created on: March 16, 2023 Bob Vides External Reference #: [id number] : 1960 Sex: Male Author Name Unknown Organization [facility] Address [address] [place] [address] Phone [phone] Problems Active Problems Provider Date Ex-smoker Aaron [...] Qnty Indications Order ing Provider Date Ferrous Fvnujxs532(65Fe) mg Tablets take 1 tablet by mouth twice a day 180tabs Елена Young MD 08/23/2022 Onetouch VerioStrips use 1 Test Strip to Test Blood Sugar once daily 200units Hector Hsu JR, MD 07/30/2022 Trulicity1.5mg/0.5ML Solution Pen-Inject inject 0.5 milliliters once weekly 6ml Елена Young MD 05/24/2022 Vitamin B-735093coz Tablets Sub take 2 tablets by mouth daily 180tabs Елена Young MD 01/12/2022 Lisinopril-Hydrochlo llmlrysriw40-41.5mg Tablets Take 1 Tablet By Mouth Once Daily 90tabs I10 Елена Young MD 12/09/2021 Cetirizine WOU45sb Tablets 1 by mouth every day 90tabs Елена Young MD 06/11/[address] take 1 tablet by mouth daily 90caps Елена Young MD 11/05/2020 Metoprolol Wdnbxiwj96ob Tablets take 1 tablet by mouth twice a day 180tabs I48.0 Елена Young MD 11/05/2020 Fast Acting Z927406sxq Tablets Sub 2 by mouth every day 180tabs D64.9 Víctor Blancas MD 11/05/2020 Metformin VPU6538ss Tablets take 1 tablet by mouth twice a day 180tabs Елена Young MD 06/05/2019 NebulizerMisc with supplies - use as directed 1units R05 Hector Hsu JR, MD 04/30/2019 R06.2 Z87.891 Ipratropium [place]/Albutero l Sulfate0.5-2.5(3)mg/3ML Solution use in nebulizer four times daily as needed 90units R05 Hector Hsu JR, MD 04/30/2019 Glipizide ER10mg Tablets ER 24HR Take One Tablet By Mouth Twice A Day 180tabs E11.65 Елена Young MD 01/22/2019 Ajbostipgit005cn Tablets take 1 tablet b y mouth twice a day 180tabs Елена Young MD 01/09/2019 Atorvastatin Hqjicvi14zy Tablets Take 1 Tablet By Mouth Every Evening 90tabs E78.2 Елена Young MD 11/03/2018 History Medications Diclofenac Sodium1% Gel apply 4gm to affected area four times daily as needed 900gm Елена Young MD 02/21/2023 - 02/28/2023 Izpddcxwia66dw Tablets two tablets x 5 days then one tablet daily x 5 days 15tabs Елена Young MD 02/21/2023 - 03/16/2023 Medications Administered in Office Medication SIG Qnty Indications Ordering Provider Date Injection Kenalog 10 MG [facility] [id number] Gage Addison 03/16/2023 Immunizations CPT Code Status Date Vaccine Lot # [id number] Given 01/06/2021 Moderna Covid-1 9 Vaccine 50mcg Booster-EMR Doc Only [id number] 04093 Given 10/16/2020 Influenza Vaccine-Adminis tered at another facility 97557 Given 10/16/2020 Pneumococcal Conjugate-Pr evnar 13 [id number] Given 06/06/2020 Moderna Sars-Co v-2 (Cov-19) vacc,100 mcg/ 0.5 mL 12Y+EMR Doc Only [id number] 21801 Given 05/09/2020 Moderna Sars-Co v-2 (Cov-19) vacc,100 mcg/ 0.5 mL 12Y+EMR Doc Only [id number] 85977 Given 10/08/2019 Influenza Vaccine-Adminis tered at another facility 00097 Given 10/08/2019 Shingrix 09543 Given 09/14/2019 Pneumococcal Vaccine/Pneu movax 23 [id number] 69424 Given 08/05/2019 Shingrix 81581 Given 10/25/2018 Influenza Virus Vaccine, Quadrivalent (Cciiv4), Derived From Cell 29678 Given 05/05/2018 Pneumococcal Vaccine/Pneu movax 23 [id number] 18928 Given 05/05/2018 Tdap (Tetanus, diphtheria & acel. pertussis) Adacel or Boostrix [id number] 59735 Given 11/12/2017 Influenza Virus Vaccine, Quadrivalent (Cciiv4), Derived From Cell 08147 Given 12/22/2016 Pneumococcal Conjugate-Pr evnar 13 [id number] 85324 Given 11/09/2016 Influenza Vaccine-Adminis tered at another facility Vital Signs Date Vital Result Comment 03/16/2023 9:04am BP Systolic 136 mmHg BP Diastolic 80 mmHg Body Temperature 98.6 F Heart Rate 70 /min Weight 259.00 lb Weight 117.482 kg Height 72 inches 6'0" BMI (Body Mass Index) 35.1 kg/m2 O2 % BldC Oximetry 97 % [place] Body Weight 178 lb 02/21/2023 3:17pm BP Systolic 122 mmHg BP Diastolic 82 mmHg Body Temperature 98.2 F Heart Rate 68 /min Weight 258.25 lb Weight 117.142 kg Height 72 inches 6'0" BMI (Body Mass Index) 35.0 kg/m2 O2 % BldC Oximetry 98 % [place] Body Weight 178 lb Results Test Acquired Date Facility Test Result H/L Range N ote Comp. Met 02/16/2023 [facility]. [address] [place] [address] [phone] Glucose 176 mg/dL High 70-110 BUN 19 [...] 2.0-3.4 GFR 72 ML/MIN/1.73SQM >60 Lipid 02/16/2023 [facility]. [address] [place] [address] [phone] Cholesterol 132 mg/dL 0-200 1 Triglyceride 238 mg/dL High 0-150 2 HDLD 32 mg/dL See Comment 3 Measured LDL 82 mg/dL 0-130 4 Calc VLDL 47.6 mg/dL See Comment 5 Chol/HDL 4.1 RATIO See Comment 6 Non-HDL 100 mg/dL See Comment 7 Laboratory test finding 02/16/2023 [facility]. [address] [place] [address] [phone] TSH 2.46 uIU/mL 0.50-6.00 Uric Acid 6.6 mg/dL 2.5-7.5 Hba1c 02/16/2023 [facility]. [address] [place] [address] [phone] A1c 10.40 % High 4.70-6.50 8 CBC W/Diff 02/16/2023 [facility]. [address] [place] [address] [phone] WBC 9.5 10^3/M3 High 3.1-9.2 RBC 5.71 10^6/M3 4.00-5.80 HGB 13.9 GR/DL 12.5-17.5 HCT 44.0 % 37.5-52.5 MCV 77.0 CUMICR Low 82.6-95.8 MCH 24.4 PICOGR Low 27.9-32.9 MCHC 31.6 % Low 32.6-35.4 RDW 16.4 % High 11.4-14.6 PLT 357 10^3/M3 High 140-350 MPV 8.8 CUMICR 7.0-10.6 %Neut 68.0 % 40.0-75.0 %Lymph 22.6 % 17.0-45.0 %[place] 6.4 % 1.0-11.0 %Eos 2.2 % 0.0-6.0 %Baso 0.8 % 0.0-2.0 #Neut 6.5 10^3/M3 1.5-8.0 #Lymph 2.2 10^3/M3 0.8-3.2 #[place] 0.6 10^3/M3 0.0-0.8 #Eos 0.2 10^3/m3 0.0-0.4 #[place]o 0.1 10^3/m3 0.0-0.2 Hypochrom 1+ Urinalysis,Cult If Indicated 02/16/2023 [facility]. [address] [place], [place] [address] [phone] RFLX Culture NO Laboratory test finding 02/16/2023 [facility]. [address] [place] [address] [phone] Psa2 1.1 ng/mL 0.0-4.0 Microalbumin Urine 02/16/2023 [facility]. [address] [place] [address] [phone] Urine Creat 102 mg/dL Comment Microalbumin 1.7 mg/dL 0.0-1.8 9 ug/mgCREATININE 17 ug/mg 0-29 Urinalysis 02/16/2023 [facility]. [address] [place] [address] [phone] Color LIGHT-YELLOW Appearance CLEAR Clear Spec.Grav. 1.017 [...] 150-7 90-5 300-12 270-11 240-10 9 *[employer] USES MICROALBUMIN/CREATINE RATIO : [...] ompleted 03/16/2023 J3301 Injection Kenalog 10 MG [facility] [id number] Completed 03/16/2023 06616 Inject/Drain Arthrocentesis Major Joint/Bursa Completed 02/21/2023 3079F PVRP Diastolic BP 80-89 MMHG Completed 02/21/2023 3074F PVRP Systolic BP <130 mmHg C ompleted 02/21/2023 3046F PVRP HGB-A1c > 9.0% Complete d 02/16/2023 59417 Venipuncture Routine Complet ed 06/04/2021 [id number] Colonoscopy Completed Medical Devices Description No Information [...] adult medical examination with abnormal findings Enrique Sandoval PA-C 02/21/2023 I10 Essential (primary) hyperten misty [...] I10 Essential (primary) hyperten misty Lab - [facility] 02/16/2023 E78.2 Mixed hyperlipidemia Елена Young MD 02/16/2023 E78.2 Mixed hyperlipidemia Lab - [place] 02/16/2023 E11.65 Type 2 diabetes mellitus wit h hyperglycemia Елена Young MD 02/16/2023 E11.65 Type 2 diabetes mellitus wit h hyperglycemia Lab - [facility] 02/16/2023 Z00.01 Encounter for ge neral adult medical examination with abnormal findings Елена Young MD 02/16/2023 Z00.01 Encounter for ge neral adult medical examination with abnormal findings Lab - [facility] 02/16/2023 N40.0 Benign prostatic hyperplasia without lower urinary tract symptoms Елена Young MD 02/16/2023 N40.0 Benign prostatic hyperplasia without lower urinary tract symptoms Lab - [facility] Plan of Treatment Future Appointment(s):* 08/22/2023 3:00 pm - Enrique Sandoval PA-C at [facility] * 08/16/2023 8:15 am - [facility] 03/16/2023 - Enrique Sandoval PA-C* M75.52 Bursitis [...]
--- OUTSIDE RECORDS SUMMARY | 2023-08-26 22:27 | External Medical Summary | Continuity of Care Document ---
Author Name Unknown Organization [facility] er, Address [address] [place] [address] Phone [phone] Problems Active Problems Provider Date Ex-smoker Aaron [...] Qnty Indications Order ing Provider Date Ferrous Bjigicb225(65Fe) mg Tablets take 1 tablet by mouth twice a day 180tabs Елена Young MD 08/23/2022 Onetouch VerioStrips use 1 Test Strip to Test Blood Sugar once daily 200units Hector Hsu JR, MD 07/30/2022 Trulicity1.5mg/0.5ML Solution Pen-Inject inject 0.5 milliliters once weekly 6ml Елена Young MD 05/24/2022 Vitamin [id number]-[id number] Tablets Sub take 2 tablets by mouth daily 180tabs Елена Young MD 01/12/2022 Lisinopril-Hydrochlo obxzdkubij93-47.5mg Tablets Take 1 Tablet By Mouth Once Daily 90tabs I10 Елена Young MD 12/09/2021 Cetirizine REI89my Tablets 1 by mouth every day 90tabs Елена Young MD 06/11/[address] take 1 tablet by mouth daily 90caps Елена Young MD 11/05/2020 Metoprolol Udyanlny34ky Tablets take 1 tablet by mouth twice a day 180tabs I48.0 Елена Young MD 11/05/2020 Fast Acting Z438825uck Tablets Sub 2 by mouth every day 180tabs D64.9 Víctor Blancas MD 11/05/2020 Metformin STZ7341oz Tablets take 1 tablet by mouth twice a day 180tabs Елена Young MD 06/05/2019 NebulizerMisc with supplies - use as directed 1units R05 Hector Hsu JR, MD 04/30/2019 R06.2 Z87.891 Ipratropium [place]/Albutero l Sulfate0.5-2.5(3)mg/3ML Solution use in nebulizer four times daily as needed 90units R05 Hector Hsu JR, MD 04/30/2019 Glipizide ER10mg Tablets ER 24HR Take One Tablet By Mouth Twice A Day 180tabs E11.65 Елена Young MD 01/22/2019 Zxblaqilzrp573ja Tablets take 1 tablet b y mouth twice a day 180tabs Елена Young MD 01/09/2019 Atorvastatin Gctvngu36au Tablets Take 1 Tablet By Mouth Every Evening 90tabs E78.2 Елена Young MD 11/03/2018 History Medications Diclofenac Sodium1% Gel apply 4gm to affected area four times daily as needed 900gm Елена Young MD 02/21/2023 - 02/28/2023 Idetxpijoa97ll Tablets two tablets x 5 days then one tablet daily x 5 days 15tabs Елена Young MD 02/21/2023 - 03/16/2023 Medications Administered in Office Medication SIG Qnty Indications Ordering Provider Date Injection Kenalog 10 MG [facility] [id number] Gage Addison 03/16/2023 Immunizations CPT Code Status Date Vaccine Lot # [id number] Given 01/06/2021 Moderna Covid-1 9 Vaccine 50mcg Booster-EMR Doc Only [id number] 49991 Given 10/16/2020 Influenza Vaccine-Adminis tered at another facility 01730 Given 10/16/2020 Pneumococcal Conjugate-Pr evnar 13 86632 Given 06/06/2020 Moderna Sars-Co v-2 (Cov-19) vacc,100 mcg/ 0.5 mL 12Y+EMR Doc Only [id number] 84571 Given 05/09/2020 Moderna Sars-Co v-2 (Cov-19) vacc,100 mcg/ 0.5 mL 12Y+EMR Doc Only [id number] 82367 Given 10/08/2019 Influenza Vaccine-Adminis tered at another facility 28030 Given 10/08/2019 Shingrix 48414 Given 09/14/2019 Pneumococcal Vaccine/Pneu movax 23 [id number] 23879 Given 08/05/2019 Shingrix 93184 Given 10/25/2018 Influenza Virus Vaccine, Quadrivalent (Cciiv4), Derived From Cell 11356 Given 05/05/2018 Pneumococcal Vaccine/Pneu movax 23 [id number] 84031 Given 05/05/2018 Tdap (Tetanus, diphtheria & acel. pertussis) Adacel or Boostrix [id number] 84122 Given 11/12/2017 Influenza Virus Vaccine, Quadrivalent (Cciiv4), Derived From Cell 49272 Given 12/22/2016 Pneumococcal Conjugate-Pr evnar 13 [id number] 85773 Given 11/09/2016 Influenza Vaccine-Adminis tered at another facility Vital Signs Date Vital Result Comment 03/16/2023 9:04am BP Systolic 136 mmHg BP Diastolic 80 mmHg Body Temperature 98.6 F Heart Rate 70 /min Weight 259.00 lb Weight 117.482 kg Height 72 inches 6'0" BMI (Body Mass Index) 35.1 kg/m2 O2 % BldC Oximetry 97 % Trade Body Weight 178 lb 02/21/2023 3:17pm BP Systolic 122 mmHg BP Diastolic 82 mmHg Body Temperature 98.2 F Heart Rate 68 /min Weight 258.25 lb Weight 117.142 kg Height 72 inches 6'0" BMI (Body Mass Index) 35.0 kg/m2 O2 % BldC Oximetry 98 % Trade Body Weight 178 lb Results Test Acquired Date Facility Test Result H/L Range N ote Comp. Met 08/16/2023 [facility] [address] [place] [address] [phone] Glucose 311 mg/dL High 70-110 BUN 18 mg/dL 6-25 Creatinine 0.9 mg/dL 0.7-1.3 Sodium 132 mEq/L Low 135-145 Potassium 4.6 mEq/L 3.5-5.0 Chloride 97 mEq/L 95-107 Co-2 22 mEq/L Low 24-31 Alk Phos 74 IU/L 43-122 Alt(SGPT) 15 IU/L 10-40 Ast(Sgot) 16 IU/L 3-42 T.Bilirubin 0.5 mg/dL 0.1-1.3 Calcium 9.6 mg/dL 8.5-10.6 Tot.Protein 8.0 g/dL 5.8-8.0 Albumin 4.5 g/dL 3.0-5.2 Globulin 3.5 g/dL High 2.0-3.4 GFR 91 ML/MIN/1.73SQM >60 Lipid 08/16/2023 [facility] [address] [place] [address] [phone] Cholesterol 150 mg/dL 0-200 1 Triglyceride 451 mg/dL High 0-150 2 HDLD 31 mg/dL See Comment 3 Measured LDL 89 mg/dL 0-130 4 Calc VLDL 90.2 mg/dL See Comment 5 Chol/HDL 4.8 RATIO See Comment 6 Non-HDL 119 mg/dL See Comment 7 Laboratory test finding 08/16/2023 [facility] [address] [place] [address] [phone] TSH 2.60 uIU/mL 0.50-6.00 Uric Acid 5.0 mg/dL 2.5-7.5 Hba1c 08/16/2023 [facility] [address] [place], [place] [id number] [phone] A1c 11.50 % High 4.70-6.50 8 CBC W/Diff 08/16/2023 [facility] [address] [place], [place] [id number] [phone] WBC 8.7 10^3/M3 3.1-9.2 RBC 5.50 10^6/M3 4.00-5.80 HGB 14.1 GR/DL 12.5-17.5 HCT 43.7 % 37.5-52.5 MCV 79.5 CUMICR Low 82.6-95.8 MCH 25.7 PICOGR Low 27.9-32.9 MCHC 32.3 % Low 32.6-35.4 RDW 16.1 % High 11.4-14.6 PLT 286 10^3/M3 140-350 MPV 8.8 CUMICR 7.0-10.6 %Neut 66.2 % 40.0-75.0 %Lymph 24.4 % 17.0-45.0 %[place] 5.3 % 1.0-11.0 %Eos 3.1 % 0.0-6.0 %Baso 1.0 % 0.0-2.0 #Neut 5.8 10^3/M3 1.5-8.0 #Lymph 2.1 10^3/M3 0.8-3.2 #[place] 0.5 10^3/M3 0.0-0.8 #Eos 0.3 10^3/m3 0.0-0.4 #Baso 0.1 10^3/m3 0.0-0.2 Urinalysis,Cult If Indicated 08/16/2023 [facility] [address] [place], [place] [id number] [phone] RFLX Culture NO Laboratory test finding 08/16/2023 [facility] [address] [place] [address] [phone] Psa2 0.6 ng/mL 0.0-4.0 Microalbumin Urine 08/16/2023 [facility] [address] [place] [address] [phone] Urine Creat 98 mg/dL Comment Microalbumin 7.8 mg/dL High 0.0-1.8 9 ug/mgCREATININE 80 ug/mg High 0-29 Urinalysis 08/16/2023 [facility] [address] [place] [address] [phone] Color LIGHT-ORANGE Abnormal Appearance TURBID Abnormal Clear Spec.Grav. 1.023 1.005-1.025 Leukocytes NEGATIVE Negative Nitrite NEGATIVE Negative PH 5.5 Low 6.0-7.5 Protein TRACE Abnormal Negative Urine Glucose LARGE Abnormal Negative Ketone NEGATIVE Negative Urobilinogen NORMAL E.U./DL Normal Bilirubin NEGATIVE Negative Blood NEGATIVE Negative WBC-U 0-2 /HPF 0-5/HPF RBC-U NONE SEEN /HPF 0-5/HPF Bacteria TRACE None Seen Squamous NONE SEEN /HPF 0-5/HPF [...] 150-7 90-5 300-12 270-11 240-10 9 *[employer] USES MICROALBUMIN/CREATINE RATIO : *<30 ug/mg CREATININE IS CLASSIFIED NORMAL *30-300 ug/mg CREATININE IS CLASSIFIED CLINICAL MICROALBUMINURIA *>300 ug/mg CREATININE IS CLASSIFIED CLINICAL ALBUMINURIA CLASSIFICATION OF A PATIENT SHOULD BE BASED ON TWO OF THREE ABNORMAL RESULTS COLLECTED WITHIN A 3 TO 6 MONTH TIME FRAME* Procedures Date Code Description Status 08/16/2023 13527 Venipuncture Routine Complet ed 03/16/2023 M1211 Hemoglobin a1c level >9.0% C ompleted 03/16/2023 J3301 Injection Kenalog 10 MG [facility] [id number] Completed 03/16/2023 11896 Inject/Drain Arthrocentesis Major Joint/Bursa Completed 02/21/2023 3079F PVRP Diastolic BP 80-89 MMHG Completed 02/21/2023 3074F PVRP Systolic BP <130 mmHg C ompleted 02/21/2023 3046F PVRP HGB-A1c > 9.0% Complete d 06/04/2021 [id number] Colonoscopy Completed Medical Devices Description No Information Available Encounters Type Date Location Provider Dx Diagnosis Office Visit 03/16/2023 9:15a [place] [facility] [facility]-C M75.52 Bursitis of left shoulder E11.65 Type 2 diabetes lorri itus with hyperglycemia Office Visit 02/21/2023 3:30p [place] rod[place] PA-C Z00.01 Encounter for general adult medical exam w abnormal findings I10 Essential (primary) hypertension E78.2 Mixed hyperlipidemia E11.65 Type 2 diabetes lorri itus with hyperglycemia I48.0 Paroxysmal atrial fi brillation 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, unspecified M75.52 Bursitis of left kuldip ulder Assessments Date Code Description Provider 08/16/2023 I10 Essential (primary) hyperten misty Lab - [place] 08/16/2023 E78.2 Mixed hyperlipidemia Lab - [place] 08/16/2023 E11.65 Type 2 diabetes mellitus wit h hyperglycemia Lab - [place] 08/16/2023 Z00.01 Encounter for ge neral adult medical examination with abnormal findings Lab - [place] 08/16/2023 N40.0 Benign prostatic hyperplasia without lower urinary tract symptoms Lab - [place] 03/16/2023 M75.52 Bursitis of left shoulder Cameron Sandoval PA-C 03/16/2023 E11.65 Type 2 diabetes mellitus wit h hyperglycemia Enrique Sandoval PA-C 02/21/2023 Z00.01 [facility] Enrique [...] Bursitis of left shoulder Cameron Sandoval PA-C Plan of Treatment Future Appointment(s):* 08/22/2023 3:00 pm - Enrique Sandoval PA-C at [place] 03/16/2023 - Enrique Sandoval PA-C* M75.52 Bursitis [...]
--- OUTSIDE RECORDS SUMMARY | 2023-08-26 22:27 | External Medical Summary | Continuity of Care Document ---
Author Name Unknown Organization [facility] er, Address [address] [place] [address] Phone [phone] Problems Active Problems Provider Date Ex-smoker Aaron [...] Social History Type Date Description Comments Sex Male Cigarette Use 03/16/2023 Quit - Age 55 Tobacco Use Start: Unknown End: Unknown Former Cigarette Smoker Smoking Status Reviewed: 08/22/23 Former Cigarette Smo ker Tobacco Use Reviewed: 03/16/23 Never Smoked Cigars Tobacco Use Reviewed: 03/16/23 Never Smoked A Pipe Smokeless Tobacco 03/16/2023 Never Used Smokeless To bacco ETOH Use Rarely consumes alcohol Recreational Drug Use Denies Drug Use Allergies and adverse reactions Description No Known Drug Allergies Medications Active Medications SIG Qnty Indications Order ing Provider Date Qkztyczc5hx/0.5ML Solution Pen-Inject inject one pen weekly - start after 2.5mg completed 2ml Елена Young MD 08/22/2023 Mounjaro7.5mg/0.5ML Solution Pen-Inject inject one pen weekly 6ml Елена Young MD 08/22/2023 Mounjaro2.5mg/0.5ML Solution Pen-Inject once weekly x 4 weeks 2ml Елена Young MD 08/22/2023 Ferrous Kqrcwds324(65Fe) mg Tablets take 1 tablet by mouth twice a day 180tabs Елена Young MD 08/23/2022 Onetouch VerioStrips use 1 Test Strip to Test Blood Sugar once daily E11.9 200units Елена Young MD 07/30/2022 Vitamin B-711743cim Tablets Sub take 2 tablets by mouth daily 180tabs Елена Young MD 01/12/2022 Lisinopril-Hydrochlor ttbihhnqp92-73.5mg Tablets Take 1 Tablet By Mouth Once Daily 90tabs I10 Елена Young MD 12/09/2021 Cetirizine NEA46qw Tablets 1 by mouth every day 90tabs Елена Young MD 06/11/2021 Fast Acting L989883ijq Tablets Sub 2 by mouth every day 180tabs D64.9 Víctor Blancas MD 11/05/[address] take 1 tablet by mouth daily 90caps Елена Young MD 11/05/2020 Metoprolol Uggimkej61ai Tablets take 1 tablet by mouth twice a day 180tabs I48.0 Елена Young MD 11/05/2020 Metformin MYT4962ds Tablets take 1 tablet by mouth twice a day 180tabs Елена Young MD 06/05/2019 NebulizerMisc with supplies - use as directed 1units R05 Hector Hsu JR, MD 04/30/2019 R06.2 Z87.891 Ipratropium [place]/Albutero l Sulfate0.5-2.5(3)mg/3ML Solution use in nebulizer four times daily as needed 90units R05 Hector Hsu JR, MD 04/30/2019 Glipizide ER10mg Tablets ER 24HR Take One Tablet By Mouth Twice A Day 180tabs E11.65 Елена Young MD 01/22/2019 Urpwvruvpgz794fd Tablets take 1 tablet b y mouth twice a day 180tabs Елена Young MD 01/09/2019 Atorvastatin Uzeeqit62rn Tablets Take 1 Tablet By Mouth Every Evening 90tabs E78.2 Елена Young MD 11/03/2018 Medications Administered in Office Medication SIG Qnty Indications Ordering Provider Date Injection Kenalog 10 MG [facility] [id number] Gage Addison 03/16/2023 Immunizations CPT Code Status Date Vaccine Lot # [id number] Given 01/06/2021 Moderna Covid-1 9 Vaccine 50mcg Booster-EMR Doc Only [id number] 36194 Given 10/16/2020 Influenza Vaccine-Adminis tered at another facility 17953 Given 10/16/2020 Pneumococcal Conjugate-Pr evnar 13 15756 Given 06/06/2020 Moderna Sars-Co v-2 (Cov-19) vacc,100 mcg/ 0.5 mL 12Y+EMR Doc Only [id number] 22648 Given 05/09/2020 Moderna Sars-Co v-2 (Cov-19) vacc,100 mcg/ 0.5 mL 12Y+EMR Doc Only [id number] 53534 Given 10/08/2019 Influenza Vaccine-Adminis tered at another facility 12760 Given 10/08/2019 Shingrix 02762 Given 09/14/2019 Pneumococcal Vaccine/Pneu movax 23 [id number] 84510 Given 08/05/2019 Shingrix 91752 Given 10/25/2018 Influenza Virus Vaccine, Quadrivalent (Cciiv4), Derived From Cell 72795 Given 05/05/2018 Pneumococcal Vaccine/Pneu movax 23 [id number] 18584 Given 05/05/2018 Tdap (Tetanus, diphtheria & acel. pertussis) Adacel or Boostrix [id number] 75353 Given 11/12/2017 Influenza Virus Vaccine, Quadrivalent (Cciiv4), Derived From Cell 62576 Given 12/22/2016 Pneumococcal Conjugate-Pr evnar 13 [id number] 33657 Given 11/09/2016 Influenza Vaccine-Adminis tered at another facility Vital Signs Date Vital Result Comment 08/22/2023 3:02pm BP Systolic 128 mmHg BP Diastolic 76 mmHg Body Temperature 97.3 F Heart Rate 77 /min Respiratory Rate 18 /min Weight 261.00 lb Weight 118.390 kg Height 71 inches 5'11" BMI (Body Mass Index) 36.4 kg/m2 O2 % BldC Oximetry 96 % [place] Body Weight 172 lb 03/16/2023 9:04am BP Systolic 136 mmHg BP Diastolic 80 mmHg Body Temperature 98.6 F Heart Rate 70 /min Weight 259.00 lb Weight 117.482 kg Height 72 inches 6'0" BMI (Body Mass Index) 35.1 kg/m2 O2 % BldC Oximetry 97 % [place] Body Weight 178 lb Results Test Acquired Date Facility Test Result H/L Range N ote Comp. Met 08/16/2023 [facility]. [address] [place] [address] [phone] Glucose 311 mg/dL High 70-110 BUN 18 [...] 2.0-3.4 GFR 91 ML/MIN/1.73SQM >60 Lipid 08/16/2023 [facility]. [address] [place] [address] [phone] Cholesterol 150 mg/dL 0-200 1 Triglyceride 451 mg/dL High 0-150 2 HDLD 31 mg/dL See Comment 3 Measured LDL 89 mg/dL 0-130 4 Calc VLDL 90.2 mg/dL See Comment 5 Chol/HDL 4.8 RATIO See Comment 6 Non-HDL 119 mg/dL See Comment 7 Laboratory test finding 08/16/2023 [facility]. [address] [place] [address] [phone] TSH 2.60 uIU/mL 0.50-6.00 Uric Acid 5.0 mg/dL 2.5-7.5 Hba1c 08/16/2023 [facility]. [address] [place] [address] [phone] A1c 11.50 % High 4.70-6.50 8 CBC W/Diff 08/16/2023 [facility]. [address] [place] [address] [phone] WBC 8.7 10^3/M3 3.1-9.2 RBC 5.50 10^6/M3 4.00-5.80 HGB 14.1 GR/DL 12.5-17.5 HCT 43.7 % 37.5-52.5 MCV 79.5 CUMICR Low 82.6-95.8 MCH 25.7 PICOGR Low 27.9-32.9 MCHC 32.3 % Low 32.6-35.4 RDW 16.1 % High 11.4-14.6 PLT 286 10^3/M3 140-350 MPV 8.8 CUMICR 7.0-10.6 %Neut 66.2 % 40.0-75.0 %Lymph 24.4 % 17.0-45.0 %[place] 5.3 % 1.0-11.0 %Eos 3.1 % 0.0-6.0 %Baso 1.0 % 0.0-2.0 #Neut 5.8 10^3/M3 1.5-8.0 #Lymph 2.1 10^3/M3 0.8-3.2 #[place] 0.5 10^3/M3 0.0-0.8 #Eos 0.3 10^3/m3 0.0-0.4 #Baso 0.1 10^3/m3 0.0-0.2 Urinalysis,Cult If Indicated 08/16/2023 [facility]. [address] [place] [address] [phone] RFLX Culture NO Laboratory test finding 08/16/2023 [facility]. [address] [place] [address] [phone] Psa2 0.6 ng/mL 0.0-4.0 Microalbumin Urine 08/16/2023 [facility]. [address] [place] [address] [phone] Urine Creat 98 mg/dL Comment Microalbumin 7.8 mg/dL High 0.0-1.8 9 ug/mgCREATININE 80 ug/mg High 0-29 Urinalysis 08/16/2023 [facility]. [address] [place] [address] [phone] Color LIGHT-ORANGE Abnormal Appearance TURBID Abnormal Clear [...] 150-7 90-5 300-12 270-11 240-10 9 *[employer] USES MICROALBUMIN/CREATINE RATIO : *<30 ug/mg CREATININE IS CLASSIFIED NORMAL *30-300 ug/mg CREATININE IS CLASSIFIED CLINICAL MICROALBUMINURIA *>300 ug/mg CREATININE IS CLASSIFIED CLINICAL ALBUMINURIA CLASSIFICATION OF A PATIENT SHOULD BE BASED ON TWO OF THREE ABNORMAL RESULTS COLLECTED WITHIN A 3 TO 6 MONTH TIME FRAME* Procedures Date Code Description Status 08/22/2023 M1211 Hemoglobin a1c level >9.0% C ompleted 08/22/2023 3078F PVRP Diastolic BP <80 mmHg C ompleted 08/22/2023 3074F PVRP Systolic BP <130 mmHg C ompleted 08/16/2023 68206 Venipuncture Routine Complet ed 03/16/2023 M1211 Hemoglobin a1c level >9.0% C ompleted 03/16/2023 J3301 Injection Kenalog 10 MG 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, unspecified Office Visit 03/16/2023 9:15a Natasha rodas PA-C M75.52 Bursitis of left shoulder E11.65 Type 2 diabetes lorri itus with hyperglycemia Assessments Date Code Description Provider 08/22/2023 I10 Essential (primary) hyperten misty Sandoval PA-C 08/22/2023 E78.2 Mixed hyperlipidemia Enrique Sandoval PA-C 08/22/2023 E11.65 Type 2 diabetes mellitus wit h hyperglycemia Enrique Sandoval PA-C 08/22/2023 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, unsp ecified Enrique Sandoval PA-C 08/16/2023 I10 Essential (primary) hyperten misty Young MD 08/16/2023 I10 Essential (primary) hyperten misty [facility] - [place] 08/16/2023 E78.2 Mixed hyperlipidemia Елена Young MD 08/16/2023 E78.2 Mixed hyperlipidemia Lab - [place] 08/16/2023 E11.65 Type 2 diabetes mellitus wit h hyperglycemia Елена Young MD 08/16/2023 E11.65 Type 2 diabetes mellitus wit h hyperglycemia Lab - [place] 08/16/2023 Z00.01 Encounter for ge nerak adult medical examination with abnormal findings Елена Young MD 08/16/2023 Z00.01 Encounter for ge nerak adult medical examination with abnormal findings Lab - [place] 08/16/2023 N40.0 Benign prostatic hyperplasia without lower urinary tract symptoms Елена Young MD 08/16/2023 N40.0 Benign prostatic hyperplasia without lower urinary tract symptoms Lab - [place] 03/16/2023 M75.52 Bursitis of left shoulder Je nasir Sandoval PA-C 03/16/2023 E11.65 Type 2 diabetes mellitus wit h hyperglycemia Enrique Sandoval PA-C Plan of Treatment Future Appointment(s):* 12/15/2023 8:15 am - [facility] [place] * 12/22/2023 8:30 am - Enrique Sandoval PA-C at [place] 08/22/2023 - Enrique Sandoval PA-C* I10 Essential (primary) hypertension* New Labs:* Comp. Met, Scheduled: 02/20/24 * Lipid, Scheduled: 02/20/24 * TSH, Scheduled: 02/20/24 * Uric Acid, Scheduled: 02/20/24 * Hba1c, Scheduled: 02/20/24 * CBC W/Diff, Scheduled: 02/20/24 * Urinalysis,Cult If Indicated, Scheduled: 02/20/24 * Comments:* Continue current medication. Low-sodium diet. BP stable * Recommendations:* Low-salt diet. Exercise. Continue medication as directed. * E78.2 Mixed hyperlipidemia* New Labs:* Comp. Met, Scheduled: 02/20/24 * Lipid, Scheduled: 02/20/24 * TSH, Scheduled: 02/20/24 * Uric Acid, Scheduled: 02/20/24 * Hba1c, Scheduled: 02/20/24 * CBC W/Diff, Scheduled: 02/20/24 * Comments:* Continue current medication. Lab results discussed with patient Continue statin decreasesugars and carbs in diet Aware of the increase in triglycerides and lipids * Recommendations:* Low-fat, low-cholesterol diet. Exercise. * E11.65 Type 2 diabetes mellitus with hyperglycemia* New Labs:* Comp. Met, Scheduled: 02/20/24 * Lipid, Scheduled: 02/20/24 * TSH, Scheduled: 02/20/24 * Uric Acid, Scheduled: 02/20/24 * Hba1c, Scheduled: 02/20/24 * CBC W/Diff, Scheduled: 02/20/24 * Microalbumin Urine, Scheduled: 02/20/24 * Comments:* Patient has been without his Trulicity for 5 months Agreeable to start Mounjaro Refuses insulin at the present time Advised to continue to monitor sugars * Recommendations:* Follow diabetic diet. Continue medications as prescribed. 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
--- OUTSIDE RECORDS SUMMARY | 2023-08-26 22:27 | External Medical Summary | Continuity of Care Document ---
Author Name Unknown Organization [facility] Address [address] [place] [address] Phone [phone] Problems Active Problems Provider Date Ex-smoker Aaron [...] Qnty Indications Order ing Provider Date Ferrous Qrrvbsi960(65Fe) mg Tablets take 1 tablet by mouth twice a day 180tabs Елена Young MD 08/23/2022 Onetouch VerioStrips use 1 Test Strip to Test Blood Sugar once daily 200units Hector Hsu JR, MD 07/30/2022 Trulicity1.5mg/0.5ML Solution Pen-Inject inject 0.5 milliliters once weekly 6ml Елена Young MD 05/24/2022 Vitamin [id number]-[id number] Tablets Sub take 2 tablets by mouth daily 180tabs Елена Young MD 01/12/2022 Lisinopril-Hydrochlo trdgtyeqri97-68.5mg Tablets Take 1 Tablet By Mouth Once Daily 90tabs I10 Елена Young MD 12/09/2021 Cetirizine ROL66eh Tablets 1 by mouth every day 90tabs Елена Young MD 06/11/[address] take 1 tablet by mouth daily 90caps Елена Young MD 11/05/2020 Metoprolol Qfhrfhjw51oz Tablets take 1 tablet by mouth twice a day 180tabs I48.0 Елена Young MD 11/05/2020 Fast Acting [id number] Tablets Sub 2 by mouth every day 180tabs D64.9 Víctor Blancas MD 11/05/2020 Metformin YSP6081yh Tablets take 1 tablet by mouth twice a day 180tabs Елена Young MD 06/05/2019 NebulizerMisc with supplies - use as directed 1units R05 Hector Hsu JR, MD 04/30/2019 R06.2 Z87.891 Ipratropium [place]/Albutero l Sulfate0.5-2.5(3)mg/3ML Solution use in nebulizer four times daily as needed 90units R05 Hector Hsu JR, MD 04/30/2019 Glipizide ER10mg Tablets ER 24HR Take One Tablet By Mouth Twice A Day 180tabs E11.65 Елена Young MD 01/22/2019 Yimibeftzda644jg Tablets take 1 tablet b y mouth twice a day 180tabs Елена Young MD 01/09/2019 Atorvastatin Ejdontk82op Tablets Take 1 Tablet By Mouth Every Evening 90tabs E78.2 Елена Young MD 11/03/2018 History Medications Diclofenac Sodium1% Gel apply 4gm to affected area four times daily as needed 900gm Елена Young MD 02/21/2023 - 02/28/2023 Qmqgqagpns72df Tablets two tablets x 5 days then one tablet daily x 5 days 15tabs Елена Young MD 02/21/2023 - 03/16/2023 Medications Administered in Office Medication SIG Qnty Indications Ordering Provider Date Injection Kenalog [address] [facility] [id number] Gage Addison 03/16/2023 Immunizations CPT Code Status Date Vaccine Lot # [id number] Given 01/06/2021 Moderna Covid-1 9 Vaccine 50mcg Booster-EMR Doc Only [id number] 48735 Given 10/16/2020 Influenza Vaccine-Adminis tered at another facility 78829 Given 10/16/2020 Pneumococcal Conjugate-Pr evnar 13 [id number] Given 06/06/2020 Moderna Sars-Co v-2 (Cov-19) vacc,100 mcg/ 0.5 mL 12Y+EMR Doc Only [id number] 85641 Given 05/09/2020 Moderna Sars-Co v-2 (Cov-19) vacc,100 mcg/ 0.5 mL 12Y+EMR Doc Only [id number] 08441 Given 10/08/2019 Influenza Vaccine-Adminis tered at another facility 03556 Given 10/08/2019 Shingrix 57431 Given 09/14/2019 Pneumococcal Vaccine/Pneu movax 23 [id number] 10558 Given 08/05/2019 Shingrix 86211 Given 10/25/2018 Influenza Virus Vaccine, Quadrivalent (Cciiv4), Derived From Cell 27241 Given 05/05/2018 Pneumococcal Vaccine/Pneu movax 23 [id number] 02885 Given 05/05/2018 Tdap (Tetanus, diphtheria & acel. pertussis) Adacel or Boostrix [id number] 47027 Given 11/12/2017 Influenza Virus Vaccine, Quadrivalent (Cciiv4), Derived From Cell 18164 Given 12/22/2016 Pneumococcal Conjugate-Pr evnar 13 [id number] 42815 Given 11/09/2016 Influenza Vaccine-Adminis tered at another facility Vital Signs Date Vital Result Comment 03/16/2023 9:04am BP Systolic 136 mmHg BP Diastolic 80 mmHg Body Temperature 98.6 F Heart Rate 70 /min Weight 259.00 lb Weight 117.482 kg Height 72 inches 6'0" BMI (Body Mass Index) 35.1 kg/m2 O2 % BldC Oximetry 97 % [place] Body Weight 178 lb 02/21/2023 3:17pm BP Systolic 122 mmHg BP Diastolic 82 mmHg Body Temperature 98.2 F Heart Rate 68 /min Weight 258.25 lb Weight 117.142 kg Height 72 inches 6'0" BMI (Body Mass Index) 35.0 kg/m2 O2 % BldC Oximetry 98 % [place] Body Weight 178 lb Results Test Acquired Date Facility Test Result H/L Range N ote Comp. Met 02/16/2023 [facility]. [address] [place] [address] [phone] Glucose 176 mg/dL High 70-110 BUN 19 [...] 2.0-3.4 GFR 72 ML/MIN/1.73SQM >60 Lipid 02/16/2023 [facility]. [address] [place] [address] [phone] Cholesterol 132 mg/dL 0-200 1 Triglyceride 238 mg/dL High 0-150 2 HDLD 32 mg/dL See Comment 3 Measured LDL 82 mg/dL 0-130 4 Calc VLDL 47.6 mg/dL See Comment 5 Chol/HDL 4.1 RATIO See Comment 6 Non-HDL 100 mg/dL See Comment 7 Laboratory test finding 02/16/2023 [facility]. [address] [place] [address] [phone] TSH 2.46 uIU/mL 0.50-6.00 Uric Acid 6.6 mg/dL 2.5-7.5 Hba1c 02/16/2023 [facility]. [address] [place] [address] [phone] A1c 10.40 % High 4.70-6.50 8 CBC W/Diff 02/16/2023 [facility]. [address] [place] [address] [phone] WBC 9.5 10^3/M3 High 3.1-9.2 RBC 5.71 10^6/M3 4.00-5.80 HGB 13.9 GR/DL 12.5-17.5 HCT 44.0 % 37.5-52.5 MCV 77.0 CUMICR Low 82.6-95.8 MCH 24.4 PICOGR Low 27.9-32.9 MCHC 31.6 % Low 32.6-35.4 RDW 16.4 % High 11.4-14.6 PLT 357 10^3/M3 High 140-350 MPV 8.8 CUMICR 7.0-10.6 %Neut 68.0 % 40.0-75.0 %Lymph 22.6 % 17.0-45.0 %[place] 6.4 % 1.0-11.0 %Eos 2.2 % 0.0-6.0 %Baso 0.8 % 0.0-2.0 #Neut 6.5 10^3/M3 1.5-8.0 #Lymph 2.2 10^3/M3 0.8-3.2 #[place] 0.6 10^3/M3 0.0-0.8 #Eos 0.2 10^3/m3 0.0-0.4 #Baso 0.1 10^3/m3 0.0-0.2 Hypochrom 1+ Urinalysis,Cult If Indicated 02/16/2023 [facility]. [address] [place], [place] [id number] [phone] RFLX Culture NO Laboratory test finding 02/16/2023 [facility]. [address] [place] [address] [phone] Psa2 1.1 ng/mL 0.0-4.0 Microalbumin Urine 02/16/2023 [facility]. [address] [place] [address] [phone] Urine Creat 102 mg/dL Comment Microalbumin 1.7 mg/dL 0.0-1.8 9 ug/mgCREATININE 17 ug/mg 0-29 Urinalysis 02/16/2023 [facility]. [address] [place] [address] [phone] Color LIGHT-YELLOW Appearance CLEAR Clear Spec.Grav. 1.017 [...] 150-7 90-5 300-12 270-11 240-10 9 *[employer] USES MICROALBUMIN/CREATINE RATIO : [...] ompleted 03/16/2023 J3301 Injection Kenalog [address] [facility] [id number] Completed 03/16/2023 26041 Inject/Drain Arthrocentesis Major Joint/Bursa Completed 02/21/2023 3079F PVRP Diastolic BP 80-89 MMHG Completed 02/21/2023 3074F PVRP Systolic BP <130 mmHg C ompleted 02/21/2023 3046F PVRP HGB-A1c > 9.0% Complete d 02/16/2023 61095 Venipuncture Routine Complet ed 06/04/2021 30250738 Colonoscopy Completed Medical Devices Description No Information [...] I10 Essential (primary) hyperten misty Lab - [facility] 02/16/2023 E78.2 Mixed hyperlipidemia Елена Young MD 02/16/2023 E78.2 Mixed hyperlipidemia Lab - [place] 02/16/2023 E11.65 Type 2 diabetes mellitus wit h hyperglycemia Елена Young MD 02/16/2023 E11.65 Type 2 diabetes mellitus wit h hyperglycemia Lab - [facility] 02/16/2023 Z00.01 Encounter for ge neral adult medical examination with abnormal findings Елена Young MD 02/16/2023 Z00.01 Encounter for ge neral adult medical examination with abnormal findings Lab - [facility] 02/16/2023 N40.0 Benign prostatic hyperplasia without lower urinary tract symptoms Елена Young MD 02/16/2023 N40.0 Benign prostatic hyperplasia without lower urinary tract symptoms Lab - [facility] Plan of Treatment Future Appointment(s):* 08/22/2023 3:00 pm - Enrique Sandoval PA-C at [facility] * 08/16/2023 8:15 am - [facility] 03/16/2023 - Enrique Sandoval PA-C* M75.52 Bursitis [...]
--- OUTSIDE RECORDS SUMMARY | 2023-08-26 22:27 | External Medical Summary | Continuity of Care Document ---
Author Name Unknown Organization [facility], Address [address] [place] [address] Phone [phone] Problems Active Problems Provider Date Ex-smoker Aaron [...] Qnty Indications Order ing Provider Date Ferrous Ulabdku039(65Fe) mg Tablets take 1 tablet by mouth twice a day 180tabs Елена Young MD 08/23/2022 Onetouch VerioStrips use 1 Test Strip to Test Blood Sugar once daily 200units Hector Hsu JR, MD 07/30/2022 Trulicity1.5mg/0.5ML Solution Pen-Inject inject 0.5 milliliters once weekly 6ml Елена Young MD 05/24/2022 Vitamin B-407186srd Tablets Sub take 2 tablets by mouth daily 180tabs Елена Young MD 01/12/2022 Lisinopril-Hydrochlo fnuzjqhcty05-31.5mg Tablets Take 1 Tablet By Mouth Once Daily 90tabs I10 Елена Young MD 12/09/2021 Cetirizine YHN15fe Tablets 1 by mouth every day 90tabs Елена Young MD 06/11/[address] take 1 tablet by mouth daily 90caps Елена Young MD 11/05/2020 Metoprolol Kdwrynic98hx Tablets take 1 tablet by mouth twice a day 180tabs I48.0 Елена Young MD 11/05/2020 Fast Acting P626443rit Tablets Sub 2 by mouth every day 180tabs D64.9 Víctor Blancas MD 11/05/2020 Metformin HSK7191eb Tablets take 1 tablet by mouth twice a day 180tabs Елена Young MD 06/05/2019 NebulizerMisc with supplies - use as directed 1units R05 Hector Hsu JR, MD 04/30/2019 R06.2 Z87.891 Ipratropium [place]/Albutero l Sulfate0.5-2.5(3)mg/3ML Solution use in nebulizer four times daily as needed 90units R05 Hector Hsu JR, MD 04/30/2019 Glipizide ER10mg Tablets ER 24HR Take One Tablet By Mouth Twice A Day 180tabs E11.65 Елена Young MD 01/22/2019 Rrpkewadljl941om Tablets take 1 tablet b y mouth twice a day 180tabs Елена Young MD 01/09/2019 Atorvastatin Eesktmh31gv Tablets Take 1 Tablet By Mouth Every Evening 90tabs E78.2 Елена Young MD 11/03/2018 History Medications Diclofenac Sodium1% Gel apply 4gm to affected area four times daily as needed 900gm Елена Yougn MD 02/21/2023 - 02/28/2023 Svsgbonzxd36rh Tablets two tablets x 5 days then one tablet daily x 5 days 15tabs Елена Young MD 02/21/2023 - 03/16/2023 Medications Administered in Office Medication SIG Qnty Indications Ordering Provider Date Injection Kenalog 10 MG [facility] [id number] Gage Addison 03/16/2023 Immunizations CPT Code Status Date Vaccine Lot # 61911 Given 01/06/2021 Moderna Covid-1 9 Vaccine 50mcg Booster-EMR Doc Only [id number] 79063 Given 10/16/2020 Influenza Vaccine-Adminis tered at another facility 43744 Given 10/16/2020 Pneumococcal Conjugate-Pr evnar 13 14774 Given 06/06/2020 Moderna Sars-Co v-2 (Cov-19) vacc,100 mcg/ 0.5 mL 12Y+EMR Doc Only [id number] 67131 Given 05/09/2020 Moderna Sars-Co v-2 (Cov-19) vacc,100 mcg/ 0.5 mL 12Y+EMR Doc Only [id number] 02036 Given 10/08/2019 Influenza Vaccine-Adminis tered at another facility 72511 Given 10/08/2019 Shingrix 82630 Given 09/14/2019 Pneumococcal Vaccine/Pneu movax 23 [id number] 54945 Given 08/05/2019 Shingrix 24248 Given 10/25/2018 Influenza Virus Vaccine, Quadrivalent (Cciiv4), Derived From Cell 99772 Given 05/05/2018 Pneumococcal Vaccine/Pneu movax 23 [id number] 97528 Given 05/05/2018 Tdap (Tetanus, diphtheria & acel. pertussis) Adacel or Boostrix [id number] 66499 Given 11/12/2017 Influenza Virus Vaccine, Quadrivalent (Cciiv4), Derived From Cell 33054 Given 12/22/2016 Pneumococcal Conjugate-Pr evnar 13 [id number] 81568 Given 11/09/2016 Influenza Vaccine-Adminis tered at another facility Vital Signs Date Vital Result Comment 03/16/2023 9:04am BP Systolic 136 mmHg BP Diastolic 80 mmHg Body Temperature 98.6 F Heart Rate 70 /min Weight 259.00 lb Weight 117.482 kg Height 72 inches 6'0" BMI (Body Mass Index) 35.1 kg/m2 O2 % BldC Oximetry 97 % [place] Body Weight 178 lb 02/21/2023 3:17pm BP Systolic 122 mmHg BP Diastolic 82 mmHg Body Temperature 98.2 F Heart Rate 68 /min Weight 258.25 lb Weight 117.142 kg Height 72 inches 6'0" BMI (Body Mass Index) 35.0 kg/m2 O2 % BldC Oximetry 98 % [place] Body Weight 178 lb Results Test Acquired Date Facility Test Result H/L Range N ote Laboratory test finding 08/16/2023 [facility]. [address] [place], [place] [id number] [phone] TSH <pending> Uric Acid <pending> Laboratory test finding 08/16/2023 [facility]. [address] [place], [place] [address] [phone] Psa2 <pending> Urinalysis 02/16/2023 [facility]. [address] [place] [address] [phone] Color LIGHT-YELLOW Appearance CLEAR Clear Spec.Grav. 1.017 1.005-1.025 Leukocytes NEGATIVE Negative Nitrite NEGATIVE Negative PH 5.5 Low 6.0-7.5 Protein NEGATIVE Negative Urine Glucose NEGATIVE Negative Ketone NEGATIVE Negative Urobilinogen NORMAL E.U./DL Normal Bilirubin NEGATIVE Negative Blood NEGATIVE Negative WBC-U 0-2 /HPF 0-5/HPF RBC-U 0-2 /HPF 0-5/HPF Bacteria NONE SEEN None Seen Hyaline Casts 6-10 /LPF Abnormal None Seen Squamous NONE SEEN /HPF 0-5/HPF Microalbumin Urine 02/16/2023 [facility]. [address] [place] [address] [phone] Urine Creat 102 mg/dL Comment Microalbumin 1.7 mg/dL 0.0-1.8 1 ug/mgCREATININE 17 ug/mg 0-29 Laboratory test finding 02/16/2023 [facility]. [address] [place] [address] [phone] Psa2 1.1 ng/mL 0.0-4.0 Urinalysis,Cult If Indicated 02/16/2023 [facility]. [address] [place] [address] [phone] RFLX Culture NO CBC W/Diff 02/16/2023 [facility]. [address] [place] [address] [phone] WBC 9.5 10^3/M3 High 3.1-9.2 RBC 5.71 10^6/M3 4.00-5.80 HGB 13.9 GR/DL 12.5-17.5 HCT 44.0 % 37.5-52.5 MCV 77.0 CUMICR Low 82.6-95.8 MCH 24.4 PICOGR Low 27.9-32.9 MCHC 31.6 % Low 32.6-35.4 RDW 16.4 % High 11.4-14.6 PLT 357 10^3/M3 High 140-350 MPV 8.8 CUMICR 7.0-10.6 %Neut 68.0 % 40.0-75.0 %Lymph 22.6 % 17.0-45.0 %[place] 6.4 % 1.0-11.0 %Eos 2.2 % 0.0-6.0 %Baso 0.8 % 0.0-2.0 #Neut 6.5 10^3/M3 1.5-8.0 #Lymph 2.2 10^3/M3 0.8-3.2 #[place] 0.6 10^3/M3 0.0-0.8 #Eos 0.2 10^3/m3 0.0-0.4 #Baso 0.1 10^3/m3 0.0-0.2 Hypochrom 1+ Hba1c 02/16/2023 [facility]. [address] [place] [address] [phone] A1c 10.40 % High 4.70-6.50 2 Laboratory test finding 02/16/2023 [facility]. [address] [place] [address] [phone] TSH 2.46 uIU/mL 0.50-6.00 Uric Acid 6.6 mg/dL 2.5-7.5 Lipid 02/16/2023 [facility]. [address] [place] [address] [phone] Cholesterol 132 mg/dL 0-200 3 Triglyceride 238 mg/dL High 0-150 4 HDLD 32 mg/dL See Comment 5 Measured LDL 82 mg/dL 0-130 6 Calc VLDL 47.6 mg/dL See Comment 7 Chol/HDL 4.1 RATIO See Comment 8 Non-HDL 100 mg/dL See Comment 9 Comp. Met 02/16/2023 [facility]. [address] [place] [address] [phone] Glucose 176 mg/dL High 70-110 BUN 19 [...] 3.2 g/dL 2.0-3.4 GFR 72 ML/MIN/1.73SQM >60 1 *THE [employer] USES MICROALBUMIN/CREATINE RATIO : *<30 ug/mg CREATININE IS CLASSIFIED NORMAL *30-300 ug/mg CREATININE IS CLASSIFIED CLINICAL MICROALBUMINURIA *>300 ug/mg CREATININE IS CLASSIFIED CLINICAL ALBUMINURIA CLASSIFICATION OF A PATIENT SHOULD BE BASED ON TWO OF THREE ABNORMAL RESULTS COLLECTED WITHIN A 3 TO 6 MONTH TIME FRAME* 2 MEAN GLUCOSE IN mg/d L/A1c% POOR CONTROL FAIR CONTROL GOOD CONTROL EXCELLENT CONTROL 360-14 210-9 180-8 120-6 330-13 150-7 90-5 300-12 270-11 240-10 3 CHOLESTEROL Less than 200mg/dl Low risk 201-239 mg/dl Borderline risk Equal to or greater 240mg/dl High risk 4 TRIGLYCERIDES Less than 150mg/dl Normal 150-199mg/dl Borderline 200-499mg/dl High Greater than 500mg/dl Very High 5 HDL <40mg/dl Elevated Risk 41-59mg/dl Risk >=60mg/dl Least Risk 6 LDL <100mg/dl Optimal 100-129mg/dl Near Optimal 130-159mg/dl Borderline High 160-189mg/dl High >=190 Very High 7 VLDL Less than 30mg/dl Normal 8 CHOL/HDL <4.0 Optimal 4.0-5.0 Borderline >6.0 High Risk 9 NON-HDL 30mg/dl higher than LDL Target Procedures Date Code Description Status 08/16/2023 93012 Venipuncture Routine Complet ed 03/16/2023 M1211 Hemoglobin a1c level >9.0% C ompleted 03/16/2023 J3301 Injection Kenalog 10 MG [facility] [id number] Completed 03/16/2023 68944 Inject/Drain Arthrocentesis Major Joint/Bursa Completed 02/21/2023 3079F PVRP Diastolic BP 80-89 MMHG Completed 02/21/2023 3074F PVRP Systolic BP <130 mmHg C ompleted 02/21/2023 3046F PVRP HGB-A1c > 9.0% Complete d 02/16/2023 03446 Venipuncture Routine Complet ed 06/04/2021 [id number] Colonoscopy Completed Medical Devices Description No Information [...] I10 Essential (primary) hyperten misty Lab - [facility] 08/16/2023 E78.2 Mixed hyperlipidemia Lab - [place] 08/16/2023 E11.65 Type 2 diabetes mellitus wit h hyperglycemia Lab - [place] 08/16/2023 Z00.01 Encounter for ge neral adult medical examination with abnormal findings Lab - [place] 08/16/2023 N40.0 Benign prostatic hyperplasia without lower urinary tract symptoms Lab - [facility] 03/16/2023 M75.52 Bursitis of left shoulder [facility] 03/16/2023 E11.65 Type 2 diabetes mellitus wit h hyperglycemia [facility] 02/21/2023 Z00.01 Encounter for ge neral adult medical examination with abnormal findings [facility] 02/21/2023 I10 Essential (primary) hyperten misty [facility] 02/21/2023 E78.2 Mixed hyperlipidemia [facility] 02/21/2023 E11.65 Type 2 diabetes mellitus wit h hyperglycemia [facility] 02/21/2023 I48.0 Paroxysmal atrial fibrillati on ISRA [facility] 02/21/2023 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, unsp ecified [facility] 02/21/2023 M75.52 Bursitis of left shoulder [facility] 02/16/2023 I10 Essential (primary) hyperten misty Елена Young MD 02/16/2023 I10 Essential (primary) hyperten misty [facility] - [place] 02/16/2023 E78.2 Mixed hyperlipidemia Елена Young MD 02/16/2023 E78.2 Mixed hyperlipidemia Lab - [place] 02/16/2023 E11.65 Type 2 diabetes mellitus wit h hyperglycemia Елена Young MD 02/16/2023 E11.65 Type 2 diabetes mellitus wit h hyperglycemia Lab - [place] 02/16/2023 Z00.01 Encounter for ge neral adult medical examination with abnormal findings Елена Young MD 02/16/2023 Z00.01 Encounter for ge neral adult medical examination with abnormal findings Lab - [place] 02/16/2023 N40.0 Benign prostatic hyperplasia without lower urinary tract symptoms Елена Young MD 02/16/2023 N40.0 Benign prostatic hyperplasia without lower urinary tract symptoms Lab - [facility] Plan of Treatment Future Appointment(s):* 08/22/2023 3:00 pm - Enrique Sandoval PA-C at [facility] 03/16/2023 - Enrique Sandoval PA-C* M75.52 Bursitis [...]
--- NOTE | 2023-08-26 23:42 | CT Scan Report ---
Exam(s): CT RIGHT FOOT With Contrast IV Amt: 93 ML OPTIRAY 320 EXAM: CT Right Lower Extremity With Intravenous Contrast, Foot CLINICAL HISTORY: Poss osteo. TECHNIQUE: Axial computed tomography images of the right foot with intravenous contrast. CTDI is 19.67 mGy and DLP is 406.11 mGy-cm. Automated exposure control was utilized for the study. A dose lowering technique was utilized adhering to the principles of ALARA. CONTRAST: Patient received 93 ML OPTIRAY 320 of IV contrast COMPARISON: X-ray right foot 08-26-2023. FINDINGS: Bones/joints: No bone erosion, periosteal reaction or destruction to suggest osteomyelitis. No acute fracture. No dislocation. Soft tissues: Soft tissue swelling greatest surrounding lateral aspect of the foot centered at the distal fifth metatarsal. Cutaneous thickening, irregularity gas and enhancement of the at the level of the plantar aspect of the distal fifth metatarsal. No abnormal contrast enhancement. No radiopaque foreign body. IMPRESSION: Lateral and plantar soft tissue swelling centered at the distal aspect of the fifth metatarsal consistent with cellulitis. Focal cutaneous thickening, irregularity gas and enhancement of the at the level of the plantar aspect of the distal fifth metatarsal consistent with a phlegmon and possible small superficial ruptured abscess. No radiopaque foreign body. No underlying osseous changes to indicate osteomyelitis. Electronically signed by: Ronny Pizarro M.D. 08/26/23 23:41 PM
[2023-08-27] MEDS: CEFEPIME 2,000 MG in SYRINGE 7.5 ML IV SCH (05:42)
[2023-08-27 07:42] LABS: Basophils # (auto) 0.07 K/uL (0.00-0.20); Basophils % (auto) 0.5 %; Eosinophils # (auto) 0.14 K/uL (0.00-0.50); Eosinophils % (auto) 0.9 %; Hematocrit (blood only) 37.3 % (42.0-52.0); Hemoglobin 12.1 g/dl (14.0-18.0); Immature Granulocytes # (auto) 0.07 K/uL (0.01-0.20); Immature Granulocytes % (auto) 0.5 %; Lymphocytes % (auto) 10.1 %; Mean Corpuscular Hemoglobin 25.2 pg (25.0-34.0); Mean Corpuscular Hgb Conc 32.4 g/dL (32.0-36.0); Mean Corpuscular Volume 77.7 fL (80.0-100.0); Monocytes # (auto) 1.12 K/uL (0.11-0.59); Monocytes % (auto) 7.6 %; Neutrophils % (auto) 80.4 %; Platelet Count 335 K/uL (130-400); RDW Coefficient of Variation 14.9 % (11.5-14.5); RDW Standard Deviation 41.7 fL (36.4-46.3)
[2023-08-27 07:47] LABS: BUN Creatinine Ratio 24.7 (10-20); Calcium 9.1 mg/dl (8.6-10.3); Creatinine Clr Calc Pharmacy 107.6 ml/min; Est GFR (African American) 102.3 ml/min; Est GFR (Non-African American) 88.3 ml/min; Potassium 3.6 mmol/L (3.5-5.1)
[2023-08-27] MEDS: ENOXAPARIN INJ 40 MG/0.4 ML SYR SQ SCH (08:09)
[2023-08-27] MEDS: VANCOMYCIN HCL 1,000 MG in SODIUM CHLORIDE 0.9% 250 ML IV SCH (08:45)
[2023-08-27] MEDS ORDERED: Patient's ALLERGY Info needs ENTERED SCH (09:30)
[2023-08-27 09:34] LABS: Estimated Average Glucose 278 mg/dl; Hemoglobin A1C 11.3 % (4.5-5.6)
[2023-08-27] MEDS: AMPICILLIN/SULBACTAM SOD 3,000 MG in SODIUM CHLOR 0.9% MINI-B 100 ML IV SCH (10:29)
--- NOTE | 2023-08-27 15:46 | Hospitalist Progress Note ---
Date of Service August 27, 2023 Assessment & Plan (1) Diabetic infection of right foot: Plan: -Patient with abscess and surrounding cellulitis of the right foot. -Abscess drained done in the ED on the lateral aspect of the right distal foot. -X-ray showed soft tissues swelling without evidence of underlying bone abnormalities. -CT of the right foot negative for osteomyelitis -Blood cultures and wound cultures pending. Wound culture growing group B strep -Leukocytosis improving from 22,000-14,000 -Continue vancomycin and cefepime Asked RN to zoe the area of redness to monitor for improvement (2) Type 2 diabetes mellitus: Plan: -Patient says he takes metformin and a monthly injection at home. -Continue BSG checks, sliding-scale insulin, hypoglycemic protocol -Hemoglobin A1c 11.3 Started patient on 15 units of Lantus nightly and 5 units of NovoLog with meals Consult diabetes education (3) Peripheral neuropathy: Plan: -Patient with peripheral neuropathy on physical exam -Most likely secondary to diabetes. Should have outpatient follow-up with PCP. Plan Fluids: none Nutrition: DM2 Code status: DNR/DNI DVT ppx: Lovenox Dispo: med/surg Admission and Anticipated Discharge Date Admission Date: August 26, 2023 Subjective Patient feels well overall. Denies chest pain or shortness of breath. Review of Systems Review of Systems: All systems reviewed & are unremarkable except as noted in Subjective Physical Exam Physical Exam: General: Awake, conversant Heart: S1, S2/regular rate and rhythm, no murmur rubs or gallops Lungs: Clear to auscultation bilaterally. Normal effort Abdomen: Soft/nontender/nondistended. No hepatosplenomegaly Extremities: No clubbing/cyanosis. No edema. Dressing on right foot. Fading redness on the right foot. Behavior: Appropriate, cooperative Results & Data Results & Data Vital Signs (Past 12 Hours) Vital Signs Temp Pulse Resp BP Pulse Ox O2 Del Method 08/27/23 14:10 37.3 C 77 16 150/73 H 95 Room Air 08/27/23 07:08 37.1 C 70 16 109/64 95 Room Air Laboratory Results Abnormal lab results 08/26/23 08/26/23 08/26/23 Range/Units 16:10 20:00 20:14 WBC 22.45 H (4.8-10.8) K/ul Hgb 13.4 L (14.0-18.0) g/dl Hct 40.8 L (42.0-52.0) % MCV 77.3 L (80.0-100.0) fL RDW Coeff of Mel 14.7 H (11.5-14.5) % Plt Count 415 H (130-400) K/uL Neut # (Auto) 18.94 H (1.40-6.50) K/uL [place] # (Auto) 1.41 H (0.11-0.59) K/uL Sodium 126 L (136-145) mmol/L Chloride 92 L (98-107) mmol/L Anion Gap (3-11) BUN 28 H (6-23) mg/dl BUN/Creatinine Ratio 24.8 H (10-20) Glucose 186 H (70-99(Fasting)) mg/dl POC Glucose 237 H (70-99) mg/dl Hemoglobin A1c (4.5-5.6) % Total Protein 9.0 H (6.0-8.3) gm/dl Globulin 4.8 H (2.5-4.0) gm/dl Procalcitonin 1.04 H (0-0.5) ng/ml Ur Specific [place] 1.045 H (1.000-1.030) Urine Protein 1+ H (Negative) Urine Ketones 1+ H (Negative) 08/27/23 08/27/23 08/27/23 Range/Units 06:54 07:33 11:24 WBC 14.80 H (4.8-10.8) K/ul Hgb 12.1 L (14.0-18.0) g/dl Hct 37.3 L (42.0-52.0) % MCV 77.7 L (80.0-100.0) fL RDW Coeff of Mel 14.9 H (11.5-14.5) % Plt Count (130-400) K/uL Neut # (Auto) 11.90 H (1.40-6.50) K/uL [place] # (Auto) 1.12 H (0.11-0.59) K/uL Sodium 130 L (136-145) mmol/L Chloride 96 L (98-107) mmol/L Anion Gap 12 H (3-11) BUN (6-23) mg/dl BUN/Creatinine Ratio 24.7 H (10-20) Glucose 188 H (70-99(Fasting)) mg/dl POC Glucose 196 H 293 H (70-99) mg/dl Hemoglobin A1c 11.3 H (4.5-5.6) % Total Protein (6.0-8.3) gm/dl Globulin (2.5-4.0) gm/dl Procalcitonin (0-0.5) ng/ml Ur Specific [place] (1.000-1.030) Urine Protein (Negative) Urine Ketones (Negative) Diagnostic Findings Foot X-Ray 08/26/23 16:59 XR foot RT min 3V routine CLINICAL HISTORY: redness, swelling, pain TECHNIQUE: 3 views of the right foot were obtained. Comparison: None available at the time of this dictation. FINDINGS: No fractures are present. The joint spaces are well preserved. Soft tissue swelling is seen about the foot. IMPRESSION: Soft tissue swelling is seen without evidence of underlying bony abnormality. ACT 112: Negative or not required by law. Electronically signed by: Conor Can M.D. 08/26/2023 5:[address] 08/26/23 18:27 Exam(s): CT RIGHT FOOT With Contrast IV Amt: 93 ML OPTIRAY 320 EXAM: CT Right Lower Extremity With Intravenous Contrast, Foot CLINICAL HISTORY: Poss osteo. TECHNIQUE: Axial computed tomography images of the right foot with intravenous contrast. CTDI is 19.67 mGy and DLP is 406.11 mGy-cm. Automated exposure control was utilized for the study. A dose lowering technique was utilized adhering to the principles of ALARA. CONTRAST: Patient received 93 ML OPTIRAY 320 of IV contrast COMPARISON: X-ray right foot 08-26-2023. FINDINGS: Bones/joints: No bone erosion, periosteal reaction or destruction to suggest osteomyelitis. No acute fracture. No dislocation. Soft tissues: Soft tissue swelling greatest surrounding lateral aspect of the foot centered at the distal fifth metatarsal. Cutaneous thickening, irregularity gas and enhancement of the at the level of the plantar aspect of the distal fifth metatarsal. No abnormal contrast enhancement. No radiopaque foreign body. IMPRESSION: Lateral and plantar soft tissue swelling centered at the distal aspect of the fifth metatarsal consistent with cellulitis. Focal cutaneous thickening, irregularity gas and enhancement of the at the level of the plantar aspect of the distal fifth metatarsal consistent with a phlegmon and possible small superficial ruptured abscess. No radiopaque foreign body. No underlying osseous changes to indicate osteomyelitis. Electronically signed by: Ronny Pizarro M.D. 08/26/23 23:41 PM PG Care Time/CCT Total # of Minutes Spent Total Time Spent with Patient: Total time spent is greater than 50% in coordination of care (as documented) at patient's floor/unit and/or counseling patient: Coding Level of Care Code 87156 SUB INP/OBS CARE 2/35MIN Diagnoses Diabetic infection of right foot E11.628; L08.9 Type 2 diabetes mellitus E11.9 Peripheral neuropathy G62.9
[2023-08-27] MEDS: INSULIN ASPART PER UNIT CHARGE SC SCH (17:13)
[2023-08-27] MEDS ORDERED: CEFEPIME 2,000 MG in SYRINGE 0 ML IV SCH (18:30)
[2023-08-27] MEDS: LANTUS PER UNIT CHARGE SQ SCH (21:00)
--- NOTE | 2023-08-28 05:06 | Billing Data ---
Date of Service August 28, 2023 Coding Level of Care Code 21588 INT INP/OBS CARE
[2023-08-28 09:10] LABS: Hemoglobin 12.2 g/dl (14.0-18.0); Mean Corpuscular Hgb Conc 32.1 g/dL (32.0-36.0); Mean Corpuscular Volume 77.9 fL (80.0-100.0); Mean Platelet Volume 10.1 fL (9.4-12.4); Platelet Count 344 K/uL (130-400); RDW Coefficient of Variation 14.9 % (11.5-14.5); RDW Standard Deviation 41.7 fL (36.4-46.3); Red Blood Count 4.88 M/uL (4.70-6.10); White Blood Count 11.87 K/ul (4.8-10.8)
[2023-08-28 09:27] LABS: Calcium 9.1 mg/dl (8.6-10.3); Creatinine Clr Calc Pharmacy 117.8 ml/min; Potassium 3.4 mmol/L (3.5-5.1)
--- NOTE | 2023-08-28 14:49 | Hospitalist Progress Note ---
Date of Service August 28, 2023 Assessment & Plan (1) Diabetic infection of right foot: Plan: -Patient with abscess and surrounding cellulitis of the right foot. -Abscess drained done in the ED on the lateral aspect of the right distal foot. -X-ray showed soft tissues swelling without evidence of underlying bone abnormalities. -CT of the right foot taken and are pending read to rule out osteo-. -Blood cultures pending. Wound culture growing group B strep -Leukocytosis improving from 22 -11 -Switch from Vanco and cefepime to Unasyn Wound care consulted Will consult podiatry Cellulitis improving (2) Type 2 diabetes mellitus: Plan: -Patient's home regimen held on admission, though patient does not know what he takes at home. -Continue BSG checks, sliding-scale insulin, hypoglycemic protocol -Hemoglobin A1c elevated at 11 Started on Lantus 15 units nightly and NovoLog 5 units with meals Consult diabetes education (3) Peripheral neuropathy: Plan: -Patient with peripheral neuropathy on physical exam -Most likely secondary to diabetes. Should have outpatient follow-up with PCP. Plan Fluids: none Nutrition: DM2 Code status: DNR/DNI DVT ppx: Discontinue Lovenox as patient is having nosebleeds. Ambulation encouraged Dispo: med/surg Admission and Anticipated Discharge Date Admission Date: August 26, 2023 Subjective Patient feels well overall. Denies chest pain or shortness of breath. Review of Systems Review of Systems: All systems reviewed & are unremarkable except as noted in Subjective Physical Exam Physical Exam: General: Awake, conversant Heart: S1, S2/regular rate and rhythm, no murmur rubs or gallops Lungs: Clear to auscultation bilaterally. Normal effort Abdomen: Soft/nontender/nondistended. No hepatosplenomegaly Extremities: No clubbing/cyanosis. No edema. Dressing on right foot. Fading redness on the right foot. Behavior: Appropriate, cooperative Results & Data Results & Data Vital Signs (Past 12 Hours) Vital Signs Temp Pulse Resp BP Pulse Ox O2 Del Method 08/28/23 14:27 36.8 C 72 16 128/78 95 Room Air 08/28/23 06:55 36.9 C 70 16 133/79 95 Room Air Laboratory Results Abnormal lab results 08/27/23 08/27/23 08/28/23 Range/Units 16:31 20:36 07:31 WBC (4.8-10.8) K/ul Hgb (14.0-18.0) g/dl Hct (42.0-52.0) % MCV (80.0-100.0) fL RDW Coeff of Mel (11.5-14.5) % Sodium (136-145) mmol/L Potassium (3.5-5.1) mmol/L Chloride (98-107) mmol/L Glucose (70-99(Fasting)) mg/dl POC Glucose 156 H 165 H 202 H (70-99) mg/dl 08/28/23 08/28/23 Range/Units 08:52 11:17 WBC 11.87 H (4.8-10.8) K/ul Hgb 12.2 L (14.0-18.0) g/dl Hct 38.0 L (42.0-52.0) % MCV 77.9 L (80.0-100.0) fL RDW Coeff of Mel 14.9 H (11.5-14.5) % Sodium 128 L (136-145) mmol/L Potassium 3.4 L (3.5-5.1) mmol/L Chloride 94 L (98-107) mmol/L Glucose 288 H (70-99(Fasting)) mg/dl POC Glucose 207 H (70-99) mg/dl PG Care Time/CCT Total # of Minutes Spent Total Time Spent with Patient: Total time spent is greater than 50% in coordination of care (as documented) at patient's floor/unit and/or counseling patient: Coding Level of Care Code 91286 SUB INP/OBS CARE 235MIN Diagnoses Diabetic infection of right foot E11.628; L08.9 Type 2 diabetes mellitus E11.9 Peripheral neuropathy G62.9
[2023-08-28] MEDS: POTASSIUM CHLORIDE CRTAB 20 MEQ TABCR PO STA (14:51)
[2023-08-29 06:15] LABS: Hematocrit (blood only) 38.1 % (42.0-52.0); Hemoglobin 12.3 g/dl (14.0-18.0); Mean Corpuscular Hemoglobin 25.4 pg (25.0-34.0); Mean Corpuscular Hgb Conc 32.3 g/dL (32.0-36.0); Mean Corpuscular Volume 78.6 fL (80.0-100.0); Mean Platelet Volume 10.1 fL (9.4-12.4); Platelet Count 367 K/uL (130-400); RDW Coefficient of Variation 14.8 % (11.5-14.5); RDW Standard Deviation 42.3 fL (36.4-46.3); Red Blood Count 4.85 M/uL (4.70-6.10); White Blood Count 13.11 K/ul (4.8-10.8)
[2023-08-29 06:28] LABS: Calcium 9.1 mg/dl (8.6-10.3); Creatinine Clr Calc Pharmacy 113.7 ml/min; Est GFR (African American) 107.5 ml/min; Est GFR (Non-African American) 92.7 ml/min; Potassium 3.7 mmol/L (3.5-5.1)
--- NOTE | 2023-08-29 14:19 | Podiatry Consultation ---
Date of Consultation August 29, 2023 Assessment & Plan (1) Diabetic infection of right foot: (2) Cellulitis: Laterality: right Site of cellulitis: extremity Site of cellulitis of extremity: lower extremity Qualified Code(s): L03.115 - Cellulitis of right lower limb (3) Osteomyelitis of foot, right, acute: Plan Patient was examined and evaluated. Right foot was cleaned and redressed with Aquacel, 4 x 4 gauze, Kerlix. With the extensive malodor and extensive depth of this ulcer, he would benefit from surgical debridement to obtain a bone biopsy and clean up the infectious tissue overall. It is possible he has quite an extensive ulceration likely due to a longer duration than he suspects. We did discuss that if bone involvement is noted, he may require long-term IV antibiotic therapy versus amputation of some part of the forefoot. This will be based on surgical findings of this biopsy. This has been scheduled for tomorrow afternoon. He should be nothing by mouth after midnight. This was discussed at this visit and written consent will be obtained prior to surgery. Thank you for the consult, we will look forward to taking care of him as long as necessary. History of Present Illness Reason for Consultation: Right foot diabetic foot infection Attending Physician: Santa Oviedo MD History of Present Illness This patient was admitted to the hospital for evaluation and treatment of his right foot diabetic infection. He states he has only had an ulcer or wound care for the last week or so and that prior to that he has only had problems with his left foot. His right foot, which is currently infected, has been his "good foot. He denies any systemic signs of infection but noticed increasing drainage, swelling, and bleeding to the right foot over the last week without any improvement at home. He denies any pain to the ulcer and states that the bleeding and drainage he noticed in the shower is what drove him to present for admission and treatment. He denies any recent medical history change. He denies any strict control of his diabetic condition. He also denies any systemic signs of infection. 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 Beliefs That Will Affect Care: None Current Living Situation: Alone Other Information That Helps Us Care for You: No Feels Safe at Home: Yes Safety Concerns: Feels Safe At This Time Assistive Devices: None Review of Systems Review of Systems: All systems reviewed & are unremarkable except as noted in HPI & below Constitutional: no fever, no chills and no fatigue Eyes: no problem reported Ear, Nose, Mouth, Throat: no problem reported Respiratory: no problem reported Cardiovascular: + edema; no problem reported Gastrointestinal: no nausea, no vomiting and no problem reported Musculoskeletal: no problem reported Integumentary: + skin ulcer, + wounds and + erythema Neurologic: + loss of sensation, + numbness and + pa resthesia; no generalized weakness Psychiatric: no problem reported Physical Exam Physical Exam: Right foot lower extremity focused exam: DP/PT pulses nonpalpable. Advance trophic changes noted throughout the foot with dystrophic toenails, thinning of the skin, nonpitting edema, and this nonhealing ulcer to the bottom of the right forefoot. The wound is underlying the fifth metatarsal head and probes immediat julianna to the bone with extensive malodor noted. There is minimal drainage, though the wound was just cleaned and redressed with the wound care nursing team. There is evidence of local abscess formation throughout the plantar forefoot. This is well circumscribed at this time and delineated by the wound care nurses markings. There is no extension proximal to these markings. There is however edema and erythema to the foot throughout. The ulceration is deep, again extending to the bone, and small on its surface, consistent with a puncture wound or a much longer standing neuropathic ulceration. The malodor is suggestive of significant underlying infection as well. Constitutional: WD/WN, vitals as above + ill appearing and + obese Eyes: PERRL, conjunctivae normal, anicteric sclerae ENMT: external ear and nose normal, oropharynx normal Neck: trachea midline, no thyromegaly normal visual inspection Respiratory: normal respiratory effort; no respiratory distress Cardiovascular: Rate/Rhythm: regular rate and regular rhythm Vessels: + posterior tibial pulses abnormal and + dorsalis pedis pulses abnormal ABIs obtained were inconclusive and suggestive of calcific changes to the arterial inflow of the foot Chest (Breasts): Chest: normal inspection of chest Gastrointestinal (Abdomen): Inspection/Auscultation: abdomen normal to inspection Percussion/Palpation: + abdomen tender and abdomen soft Musculoskeletal: no cyanosis or clubbing, extremities motor strength 5/5 Head/Neck/Chest: normocephalic and head atraumatic Extremities: extremities normal to inspection Neurologic: awake; + abnormal touch/pain/proprioception, + abnormal sensation to monofilament and no focal motor deficits Psychiatric: A+Ox3, euthymic affect Results & Data Vital Signs (Past 12 Hours) Vital Signs Temp Pulse Resp BP BP Pulse Ox O2 Del Method 08/29/23 11:25 37.0 C 66 18 136/82 95 Room Air 08/29/23 07:40 36.9 C 66 18 138/82 94 Room Air Diagnostic Findings CT scan reveals the ulceration with no suspected underlying bony involvement. There is no cortical irregularity and no obvious extension to the bone. This is in contrast to the clinical exam.
--- NOTE | 2023-08-29 14:26 | Hospitalist Progress Note ---
Date of Service August 29, 2023 Assessment & Plan (1) Diabetic infection of right foot: Plan: -Patient with abscess and surrounding cellulitis of the right foot. -Abscess drained done in the ED on the lateral aspect of the right distal foot. -X-ray showed soft tissues swelling without evidence of underlying bone abnormalities. -CT of the right foot taken and are pending read to rule out osteo-. -Blood cultures pending. Wound culture growing group B strep -Leukocytosis improved from 22 -11, but up today to 13 -Switched from Vanco and cefepime to Unasyn Wound care on board Podiatry on board. Planning to take him to OR tomorrow of I&D and bone biopsy. Cellulitis improving (2) Type 2 diabetes mellitus: Plan: -Patient's home regimen held on admission, though patient does not know what he takes at home. -Continue BSG checks, sliding-scale insulin, hypoglycemic protocol -Hemoglobin A1c elevated at 11 Started on Lantus 15 units nightly and NovoLog 5 units with meals Diabetes education involved as patient will be dischaged on insulin Per DM education: He takes Metformin 1000mg BID at home. Recently started the Mounjaro 2.5mg weekly. First dose was 08/25. So far seems to be tolerating it well. He does have a glucose meter/supplies. He is agreeable to starting the Semglee. Plan: 1.) Start Semglee 15 units daily. 2.) Continue Metformin and Mounjaro. 3.) SMBG 2x/day- fasting and evening (before supper or before bed). 4.) Notify provider of BG values > 200 x 3 days or any value < 80. 5.) Regular/balanced meals; increase protein intake to support healing. Recommend sending prescriptions to pharmacy day before discharge in case same has to be ordered. Pt will need the following prescriptions: 1.) Semglee Pen. 2.) Pen Needle 32 gauge x - to inject 1x/day. (3) Peripheral neuropathy: Plan: -Patient with peripheral neuropathy on physical exam -Most likely secondary to diabetes. Should have outpatient follow-up with PCP. Plan Fluids: none Nutrition: DM2 Code status: DNR/DNI DVT ppx: Discontinue Lovenox as patient is having nosebleeds. Ambulation encouraged Dispo: med/surg Admission and Anticipated Discharge Date Admission Date: August 29, 2023 Subjective Pt has no new complaints. Says that he thinks his foot is getting better Review of Systems Review of Systems: All systems reviewed & are unremarkable except as noted in Subjective Physical Exam Physical Exam: General: Awake, conversant Heart: S1, S2/regular rate and rhythm, no murmur rubs or gallops Lungs: Clear to auscultation bilaterally. Normal effort Abdomen: Soft/nontender/nondistended. No hepatosplenomegaly Extremities: No clubbing/cyanosis. No edema. Dressing on right foot. Behavior: Appropriate, cooperative Results & Data Results & Data Vital Signs (Past 12 Hours) Vital Signs Temp Pulse Resp BP BP Pulse Ox O2 Del Method 08/29/23 11:25 37.0 C 66 18 136/82 95 Room Air 08/29/23 07:40 36.9 C 66 18 138/82 94 Room Air Laboratory Results Abnormal lab results 08/28/23 08/28/23 08/29/23 Range/Units 16:18 20:55 05:34 WBC 13.11 H (4.8-10.8) K/ul Hgb 12.3 L (14.0-18.0) g/dl Hct 38.1 L (42.0-52.0) % MCV 78.6 L (80.0-100.0) fL RDW Coeff of Mel 14.8 H (11.5-14.5) % Sodium 130 L (136-145) mmol/L Chloride 96 L (98-107) mmol/L Glucose 192 H (70-99(Fasting)) mg/dl POC Glucose 163 H 158 H (70-99) mg/dl 08/29/23 08/29/23 Range/Units 07:34 11:48 WBC (4.8-10.8) K/ul Hgb (14.0-18.0) g/dl Hct (42.0-52.0) % MCV (80.0-100.0) fL RDW Coeff of Mel (11.5-14.5) % Sodium (136-145) mmol/L Chloride (98-107) mmol/L Glucose (70-99(Fasting)) mg/dl POC Glucose 196 H 207 H (70-99) mg/dl PG Care Time/CCT Total # of Minutes Spent Total Time Spent with Patient: Total time spent is greater than 50% in coordination of care (as documented) at patient's floor/unit and/or counseling patient: Coding Level of Care Code 75733 SUB INP/OBS CARE 2MIN Diagnoses Diabetic infection of right foot E11.628; L08.9 Type 2 diabetes mellitus E11.9 Peripheral neuropathy G62.9
[2023-08-30] MEDS ORDERED: Nursing to Pharmacy Communication SCH ×2 (03:30→19:30)
[2023-08-30] MEDS: INSULIN ASPART PER UNIT CHARGE SC SCH ×2 (06:00→21:20)
[2023-08-30 08:44] LABS: Hematocrit (blood only) 38.9 % (42.0-52.0); Hemoglobin 12.4 g/dl (14.0-18.0); Mean Corpuscular Hemoglobin 25.4 pg (25.0-34.0); Mean Corpuscular Hgb Conc 31.9 g/dL (32.0-36.0); Mean Corpuscular Volume 79.6 fL (80.0-100.0); Platelet Count 406 K/uL (130-400); RDW Standard Deviation 43.3 fL (36.4-46.3); Red Blood Count 4.89 M/uL (4.70-6.10); White Blood Count 11.49 K/ul (4.8-10.8)
[2023-08-30 09:15] LABS: BUN Creatinine Ratio 17.6 (10-20); Calcium 9.1 mg/dl (8.6-10.3); Creatinine Clr Calc Pharmacy 117.8 ml/min; Potassium 3.9 mmol/L (3.5-5.1)
--- NOTE | 2023-08-30 12:57 | Hospitalist Progress Note ---
Date of Service August 30, 2023 Assessment & Plan (1) Diabetic infection of right foot: Plan: -Patient with abscess and surrounding cellulitis of the right foot. -Abscess drained done in the ED on the lateral aspect of the right distal foot. -X-ray showed soft tissues swelling without evidence of underlying bone abnormalities. -CT of the right foot did not show findings suggestive of osteomyelitis. -Blood cultures pending. Wound culture growing group B strep -Leukocytosis improved from 22 -11, but up today to 13 -Switched from Vanco and cefepime to Unasyn Wound care on board Podiatry on board. Planning to take him to OR tomorrow of I&D and bone biopsy. 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 -Continue BSG checks, sliding-scale insulin, hypoglycemic protocol -Hemoglobin A1c elevated at 11 Started on Lantus 15 units nightly and NovoLog 5 units with meals Diabetes education involved as patient will be discharged on insulin Per DM education: He takes Metformin 1000mg BID at home. Recently started the Mounjaro 2.5mg weekly. First dose was 08/25. So far seems to be tolerating it well. He does have a glucose meter/supplies. He is agreeable to starting the Semglee. Plan upon discharge: 1.) Start Semglee 15 units daily. 2.) Continue Metformin and Mounjaro. 3.) SMBG 2x/day- fasting and evening (before supper or before bed). 4.) Notify provider of BG values > 200 x 3 days or any value < 80. 5.) Regular/balanced meals; increase protein intake to support healing. Recommend sending prescriptions to pharmacy day before discharge in case same has to be ordered. Pt will need the following prescriptions: 1.) Semglee Pen. 2.) Pen Needle 32 gauge x - to inject 1x/day. (3) Peripheral neuropathy: Plan: -Patient with peripheral neuropathy on physical exam -Most likely secondary to diabetes. Should have outpatient follow-up with PCP. Plan Fluids: none Nutrition: DM2 Code status: DNR/DNI DVT ppx: Discontinue Lovenox as patient is having nosebleeds. Ambulation encouraged Dispo: med/surg Admission and Anticipated Discharge Date Admission Date: August 29, 2023 Subjective Patient feels well. Denies chest pain or shortness of breath. He is aware that he is going to the OR for debridement and bone biopsy. He has been made aware that he will need to stay in the hospital for few more days. His daughter is in the room. Review of Systems Review of Systems: All systems reviewed & are unremarkable except as noted in Subjective Physical Exam Physical Exam: General: Awake, conversant Heart: S1, S2/regular rate and rhythm, no murmur rubs or gallops Lungs: Clear to auscultation bilaterally. Normal effort Abdomen: Soft/nontender/nondistended. No hepatosplenomegaly Extremities: No clubbing/cyanosis. No edema. Dressing on right foot. Behavior: Appropriate, cooperative Results & Data Results & Data Vital Signs (Past 12 Hours) Vital Signs Temp Pulse Resp BP Pulse Ox O2 Del Method 08/30/23 07:25 36.9 C 80 16 128/70 96 Room Air Laboratory Results Abnormal lab results 08/29/23 08/29/23 08/30/23 Range/Units 16:34 20:29 05:45 WBC (4.8-10.8) K/ul Hgb (14.0-18.0) g/dl Hct (42.0-52.0) % MCV (80.0-100.0) fL MCHC (32.0-36.0) g/dL RDW Coeff of Mel (11.5-14.5) % Plt Count (130-400) K/uL Sodium (136-145) mmol/L Chloride (98-107) mmol/L Glucose (70-99(Fasting)) mg/dl POC Glucose 174 H 215 H 191 H (70-99) mg/dl 08/30/23 08/30/23 08/30/23 Range/Units 07:45 08:53 11:41 WBC 11.49 H (4.8-10.8) K/ul Hgb 12.4 L (14.0-18.0) g/dl Hct 38.9 L (42.0-52.0) % MCV 79.6 L (80.0-100.0) fL MCHC 31.9 L (32.0-36.0) g/dL RDW Coeff of Mel 15.0 H (11.5-14.5) % Plt Count 406 H (130-400) K/uL Sodium 132 L (136-145) mmol/L Chloride 97 L (98-107) mmol/L Glucose 190 H (70-99(Fasting)) mg/dl POC Glucose 181 H 158 H (70-99) mg/dl PG Care Time/CCT Total # of Minutes Spent Total Time Spent with Patient: Total time spent is greater than 50% in coordination of care (as documented) at patient's floor/unit and/or counseling patient: Coding Level of Care Code 05229 SUB INP/OBS CARE 235MIN Diagnoses Diabetic infection of right foot E11.628; L08.9 Type 2 diabetes mellitus E11.9 Peripheral neuropathy G62.9
--- NOTE | 2023-08-30 14:17 | Anesthesiology Consultation ---
Date of Service August 30, 2023 Assessment & Plan (1) Encounter for pre-operative examination: Chart Review Chart Review: Acceptable Risk for Surgery and Patient NOT seen in Pre Admission Testing Consults Requested none History Surgery Operation Date: 08/30/23 07:00 Proposed Procedures p Right Foot Incision and Drainage with Bone Biopsy - Jack Trujillo DPM Height/Weight Height: 5 ft 11 in Weight: 115.1 kg Allergies Allergy/AdvReac Type Severity Reaction Status Date / Time No Known Allergies Allergy Unverified 08/27/23 09:17 Medications Home Medications Medication Instructions Recorded Confirmed Last Taken None (Patient States No Home Meds) ##0 11/20/09 Unknown atorvastatin 20 mg tablet 20 mg PO HS 08/30/23 08/30/23 Unknown blood sugar diagnostic (OneTouch 08/30/23 08/30/23 Unknown Verio test strips) cyanocobalamin (vitamin B-12) 5,000 mcg sublingual DAILY 08/30/23 08/30/23 Unknown 2,500 mcg sublingual tablet (Vitamin B-12) gemfibrozil 600 mg tablet 600 mg PO BID 08/30/23 08/30/23 Unknown glipizide 10 mg tablet, extended 10 mg PO BID 08/30/23 08/30/23 Unknown release 24 hr lisinopril 20 1 tab PO DAILY 08/30/23 08/30/23 Unknown mg-hydrochlorothiazide 12.5 mg tablet metformin 1,000 mg tablet 1,000 mg PO BID 08/30/23 08/30/23 Unknown metoprolol tartrate 25 mg tablet 25 mg PO BID 08/30/23 08/30/23 Unknown omeprazole 40 mg capsule,delayed 40 mg PO DAILY 08/30/23 08/30/23 Unknown release tirzepatide 2.5 mg/0.5 mL 2.5 mg subcut WK 08/30/23 08/30/23 Unknown subcutaneous pen injector (Mounjaro) tirzepatide 2.5 mg/0.5 mL 5 mg subcut WK 08/30/23 08/30/23 Unknown subcutaneous pen injector (Mounjaro) tirzepatide 2.5 mg/0.5 mL 7.5 mg subcut WK 08/30/23 08/30/23 Unknown subcutaneous pen injector (Mounjaro) Active Medications Generic Name Dose Route Start Last Admin Trade Name Deep PRN Reason Stop Dose Admin Ampicillin Sodium/Sulbactam 100 mls @ 200 mls/hr 08/27/23 10:00 08/30/23 10:52 Sodium 3,000 mg/ Sodium IV 09/03/23 09:59 Infused Chloride Q6H ANA Infusion Insulin Aspart 5 units 08/27/23 17:00 08/30/23 12:09 Insulin Aspart Per Unit Charge SC 09/26/23 16:59 Not Given TIDM ANA Insulin Aspart 0 units 08/30/23 06:00 08/30/23 12:09 Insulin Aspart Per Unit Charge SC 09/29/23 05:59 Not Given Q6 ANA Insulin Glargine 15 units 08/27/23 21:00 08/29/23 21:10 Lantus Per Unit Charge SQ 09/26/23 20:59 15 units HS ANA Administration Past Medical History Medical History Type 2 diabetes mellitus Social History Smoking Status: Former smoker Hx Alcohol Use: No Hx Substance Use: No Physical Exam Vital Signs Last Vital Signs Temp 98.4 F 08/30/23 07:25 Pulse 80 08/30/23 07:25 Resp 16 08/30/23 07:25 BP 128/70 08/30/23 07:25 Pulse Ox 96 08/30/23 07:25 O2 Del Method Room Air 08/30/23 07:25 Testing Laboratory Results 08/30/23 07:45 08/30/23 07:45 PT 11.7 Seconds (9.0-12.0) 08/26/23 16:10 INR 1.1 (0.9-1.1) 08/26/23 16:10 APTT 31 Seconds (21-31) 08/26/23 16:10 Hemoglobin A1c 11.3 % (4.5-5.6) H 08/27/23 06:54 Urine Color Yellow 08/26/23 20:00 Urine Appearance Clear (Clear) 08/26/23 20:00 Urine pH 5.0 (4.5-7.5) 08/26/23 20:00 Ur Specific [place] 1.045 (1.000-1.030) H 08/26/23 20:00 Urine Protein 1+ (Negative) H 08/26/23 20:00 Urine Glucose (UA) Negative (Negative) 08/26/23 20:00 Urine Ketones 1+ (Negative) H 08/26/23 20:00 Urine Nitrite Negative (Negative) 08/26/23 20:00 Ur Leukocyte Esterase Negative (Negative) 08/26/23 20:00 Urine WBC (Auto) 0-5 /hpf (0-5) 08/26/23 20:00 Urine RBC (Auto) 0-2 /hpf (0-2) 08/26/23 20:00 U Hyaline Cast (Auto) 0-2 /lpf (0-2) 08/26/23 20:00 U Epithel Cells (Auto) 0-2 /hpf (0-2) 08/26/23 20:00 Urine Bacteria (Auto) None Seen (None Seen) 08/26/23 20:00 08/26/23 18:22 Gram Stain - Final Foot,Right Aerobic and Anaerobic Culture - Preliminary Group B Beta Strep 08/26/23 16:10 Aerobic Blood Culture - Preliminary Blood No growth in Aerobic bottle after 48 hours. Anaerobic Blood Culture - Preliminary No growth in Anaerobic bottle after 48 hours. 08/26/23 18:08 Aerobic Blood Culture - Preliminary Blood No growth in Aerobic bottle after 48 hours. Anaerobic Blood Culture - Preliminary No growth in Anaerobic bottle after 48 hours. 08/30/23 08/30/23 08/30/23 11:41 08:53 05:45 POC Glucose 158 H 181 H 191 H
--- NOTE | 2023-08-30 15:29 | Electrocardiogram Report ---
Test Reason : Blood Pressure : / mmHG Vent. Rate : 067 BPM Atrial Rate : 067 BPM P-R Int : 152 ms QRS Dur : 122 ms QT Int : 444 ms P-R-T Axes : 000 -44 031 degrees QTc Int : 469 ms Normal sinus rhythm Left anterior fascicular block Incomplete right bundle branch block Abnormal ECG No previous ECGs available Confirmed by Lj Garcia ([id number]) on 08/30/2023 3:29:37 PM Referred By: NO PCP Confirmed By:Lj Garcia
[2023-08-30] MEDS ORDERED: PROPOFOL IV EMULSION 10 MG/ML 20 ML VIAL IV ONE ×3 (15:59→17:44)
[2023-08-30] MEDS ORDERED: LIDOCAINE 2% 2 ML VIAL/AMP(20MG/ML) INFIL ONE (15:59)
[2023-08-30] MEDS ORDERED: MIDAZOLAM HCL 1 MG/ML 2ML VIAL ONE (15:59)
[2023-08-30] MEDS ORDERED: DEXAMETHASONE SOD INJ 4 MG/ML VIAL ONE (15:59)
[2023-08-30] MEDS ORDERED: fentaNYL citrate PF 100 MCG/2 ML VIAL ONE (15:59)
[2023-08-30] MEDS ORDERED: ONDANSETRON INJ 2 MG/ML 2 ML VIAL ONE (15:59)
[2023-08-30] MEDS ORDERED: ONDANSETRON INJ 2 MG/ML 2 ML VIAL IV PRN (16:49)
[2023-08-30] MEDS ORDERED: ATROPINE SULFATE 0.1 MG/ML 10ML SYR IV PRN (16:49)
[2023-08-30] MEDS ORDERED: ePHEDrine sulfate 50 MG/ML AMP IV PRN (16:49)
[2023-08-30] MEDS ORDERED: fentaNYL citrate PF 100 MCG/2 ML VIAL IV PRN (16:49)
--- NOTE | 2023-08-30 17:04 | History & Physical Bridge Note ---
Date of Service August 30, 2023 History & Physical Bridge Note I have examined the patient, reviewed the History & Physical and in the interval since the performance of the History & Physical I have noted the following changes of clinical significance: no changes noted. Plan for right foot I&D with bone biopsy. All questions answered.
[2023-08-30] MEDS: BUPIVACAINE 0.5 % 5 MG/1 ML MPF 30ML VIAL ONE (17:48)
--- NOTE | 2023-08-30 17:55 | Post Operative Brief Note ---
Immediate Post Op Note Date of Surgery August 30, 2023 Pre & Post Diagnosis Operation Date: 08/30/23 07:00 Pre-Op Diagnosis: Diabetic infection of right foot, Cellulitis Post-Op Diagnosis: Diabetic infection of right foot, Cellulitis I identified the patient and participated in the time-out.: Yes Procedure Operation Date: 08/30/23 07:00 Actual Procedures p Right Foot Incision and Drainage with Bone Biopsy(Right) - Jack Trujillo DPM Surgeon Jack Trujillo DPM Expressive Music Therapist None Estimated Blood Loss 5 Findings Consistent with Post-Op Diagnosis Extensive undermining of wound margins; tunneling of plantar wound to dorsal wound through fourth interspace Specimens Bone culture Soft tissue culture Bone biopsy Anesthesia Type MAC Complications none Disposition Accompanied Patient To Recovery: Yes Disposition: Recovery Room
--- NOTE | 2023-08-30 18:15 | Anesthesiology Progress Note ---
Date of Service August 30, 2023 Anesthesia Post Procedure Vital Signs Vital Signs: Temp Pulse Pulse Resp BP BP Pulse Ox 08/30/23 18:05 71 20 158/92 H 96 08/30/23 17:58 97.9 F 83 10 L 180/93 H 95 08/30/23 16:31 99.1 F 66 16 164/89 H 96 08/30/23 15:15 98.6 F 69 16 132/81 96 08/30/23 07:25 98.4 F 80 16 128/70 96 08/29/23 20:23 99.0 F 67 18 165/88 H 96 O2 Del Method O2 Flow Rate 08/30/23 18:05 Nasal Cannula 3 08/30/23 17:58 Nasal Cannula 3 08/30/23 16:31 Room Air 08/30/23 15:15 Room Air 08/30/23 07:25 Room Air 08/29/23 20:23 Room Air Pain Intensity Right Foot: Pain Intensity: 5 Transfer of Care Handoff Completed per policy Notes Mental Status: alert / awake / arousable and participated in evaluation Patient Amnestic to Procedure: Yes Nausea / Vomiting: adequately controlled Pain: adequately controlled Airway Patency, RR, SpO2: stable & adequate BP & HR: stable & adequate Hydration State: stable & adequate Anesthetic Complications: no major complications apparent and Pt Satisfied with anesthetic care
--- NOTE | 2023-08-30 22:07 | Operative Report ---
Post Operative Report Pre & Post Diagnosis Operation Date: 08/30/23 07:00 Pre-Op Diagnosis: Diabetic infection of right foot, Cellulitis Post-Op Diagnosis: Diabetic infection of right foot, Cellulitis Osteomyelitis I identified the patient and participated in the time-out.: Yes Procedure Operation Date: 08/30/23 07:00 Actual Procedures p Right Foot Incision and Drainage with Bone Biopsy(Right) - Jack Trujillo DPM Surgeon Jack Trujillo DPM Instrument Technician Apprentice None Estimated Blood Loss 5 Findings Consistent with Post-Op Diagnosis extensive undermining of the plantar wound will lead to a pinpoint dorsal wound. This extended directly through the fourth interspace with another ulceration noted to the lateral aspect of the right foot. This combined tunneling and undermining system led to extensive necrosis surrounding the fifth metatarsal and tissue loss extending to the fifth toe. No proximal tracking noted along the long, extrinsic tendons of the foot. clinically, there is evidence of sof tening of the fifth metatarsal head. Specimens Fifth metatarsal bone for pathology and for culture; Soft tissue for culture Anesthesia Type MAC Complications none Disposition Accompanied Patient To Recovery: Yes Disposition: Recovery Room Indications this patient is a recent hospital consult of [employer] who presented with acute ulceration and infection to the right foot. He states that his only been there for a week or so and denies any history of complaints to this right foot. He does state that he has had other problems with this left foot though this is a new concern. Wound care has previously seen him on this hospitalization noted immediate bone involvement. With this clinical exam finding and the extensive malodor and seeming deep tissue injury, a more urgent surgical intervention was planned for today rather than waiting for imaging to be performed. Preoperative instructions, postoperative instructions, relative risks, and outcomes were all discussed at this visit. Consent was obtained for this right foot incision and drainage with bone biopsy. All questions were answered. Description of Procedure the patient was brought to the operative room oon his inpatient surgical bed and left there for the duration of the procedure. The right lower extremity was scrubbed, prepped, and draped in the usual aseptic manner. Tourniquet was utilized due to his clinical suspicion of peripheral arterial disease as well. Attention was directed to the right lateral forefoot where the plantar ulceration was noted with surrounding periwound fluctuance and worsening blistering of the skin. The ulcer plantarly was debrided utilizing a curet and a 15 blade to remove overlying necrotic nonviable tissue. The ulcer immediately probed directly to the dorsal aspect of the foot through the fourth and interspace. Extensive purulent drainage was noted and able to be significant expressed. This did also track laterally through the fifth metatarsal phalangeal joint with changes noted clinically to the fifth metatarsal head as well. The drainage was a thick green purulence and malodorous. Poultry Processor samples of bone and tissue were obtained for culture and sensitivity testing as well as pathology testing. the ulceration complex was flushed with copious amounts of sterile saline and attention was directed to remove any nonviable tissue, again, with the combination of Ean, scalpel, and curette. With the extensive undermining of the tissue, the ulcerations were packed with iodoform gauze and dressed with Xeroform gauze, 4 x 4, and ABD pad and Kerlix. patient procedure well transferred to the cart with vital signs stable and vascular status intact to the feet. Following postoperative protocol the patient transferred to the recovery room and back to the floor when stable per PACU protocol. With these results, patient is likely to be here inpatient for several more days and will likely require rotation of the fifth toe, again based on the amount of nonviable tissue to the fifth ray. I attest to the content of the Intraoperative Record and any orders documented therein. Any exceptions are noted below.
[2023-08-31 08:03] LABS: Hematocrit (blood only) 40.1 % (42.0-52.0); Hemoglobin 12.6 g/dl (14.0-18.0); Mean Corpuscular Hemoglobin 24.7 pg (25.0-34.0); Mean Corpuscular Hgb Conc 31.4 g/dL (32.0-36.0); Mean Corpuscular Volume 78.5 fL (80.0-100.0); Mean Platelet Volume 9.9 fL (9.4-12.4); Platelet Count 483 K/uL (130-400); RDW Coefficient of Variation 14.8 % (11.5-14.5); RDW Standard Deviation 42.4 fL (36.4-46.3); Red Blood Count 5.11 M/uL (4.70-6.10); White Blood Count 13.53 K/ul (4.8-10.8)
[2023-08-31 08:16] LABS: BUN Creatinine Ratio 18.2 (10-20); Calcium 9.4 mg/dl (8.6-10.3); Creatinine Clr Calc Pharmacy 113.7 ml/min; Est GFR (African American) 107.5 ml/min; Est GFR (Non-African American) 92.7 ml/min; Potassium 4.4 mmol/L (3.5-5.1)
--- NOTE | 2023-08-31 15:47 | Hospitalist Progress Note ---
Date of Service August 31, 2023 Assessment & Plan (1) Diabetic infection of right foot: Plan: -Patient with abscess and surrounding cellulitis of the right foot, Podiatry feels 5th met involvement recommends 2nd surgery 08/31 -Blood cultures pending. Wound culture growing group B strep Id consult for duration once primary source control as negative blood cx at this time -Initial Vanco and cefepime, currently on Unasyn Wound care on board (2) Type 2 diabetes mellitus: Plan: -Patient's home regimen held on admission, though patient does not know what he takes at home. -Continue BSG checks, sliding-scale insulin, hypoglycemic protocol -Hemoglobin A1c elevated at 11 Started on Lantus 15 units nightly and NovoLog 5 units with meals Diabetes education involved as patient will be discharged on insulin Per DM education: He takes Metformin 1000mg BID at home. Recently started the Mounjaro 2.5mg weekly. First dose was 08/25. So far seems to be tolerating it well. He does have a glucose meter/supplies. He is agreeable to starting the Semglee. Plan upon discharge: 1.) Start Semglee 15 units daily. 2.) Continue Metformin and Mounjaro. 3.) SMBG 2x/day- fasting and evening (before supper or before bed). 4.) Notify provider of BG values > 200 x 3 days or any value < 80. 5.) Regular/balanced meals; increase protein intake to support healing. Recommend sending prescriptions to pharmacy day before discharge in case same has to be ordered. Pt will need the following prescriptions: 1.) Semglee Pen. 2.) Pen Needle 32 gauge x - to inject 1x/day. (3) Peripheral neuropathy: Plan: -Patient with peripheral neuropathy on physical exam -Most likely secondary to diabetes. Should have outpatient follow-up with PCP. Plan Code status: DNR/DNI DVT ppx: Discontinue Lovenox as patient is having nosebleeds. Ambulation encouraged Dispo: med/surg Admission and Anticipated Discharge Date Admission Date: August 29, 2023 Subjective pt has dressing on foot additional surgical revision for 08/31 pain control is good Physical Exam Physical Exam: cardiac is regular, no murmur lungs are clear abd is soft and non tender foot is bandaged, intact cap refill distally Results & Data Results & Data Vital Signs (Past 12 Hours) Vital Signs Temp Pulse Pulse Resp BP BP Pulse Ox 08/31/23 15:23 98.2 F 66 16 171/86 H 96 08/31/23 12:43 175/78 H 08/31/23 12:17 98.2 F 60 18 170/90 H 97 08/31/23 07:58 97.7 F 55 L 18 130/90 95 O2 Del Method 08/31/23 15:23 Room Air 08/31/23 12:43 08/31/23 12:17 Room Air 08/31/23 07:58 Room Air Laboratory Results reviewed cbc reviewed chemistry PG Care Time/CCT Total # of Minutes Spent Total Time Spent with Patient: Total time spent is greater than 50% in coordination of care (as documented) at patient's floor/unit and/or counseling patient: Coding Level of Care Code 79184 SUB INP/OBS CARE 2/35MIN Diagnoses Diabetic infection of right foot E11.628; L08.9 Type 2 diabetes mellitus E11.9 Peripheral neuropathy G62.9
[2023-08-31] MEDS ORDERED: hydrALAZINE HCL 20 MG/ML VIAL IV PRN (16:46)
[2023-08-31] MEDS ORDERED: Nursing to Pharmacy Communication SCH (19:45)
--- NOTE | 2023-08-31 22:27 | Podiatry Progress Note ---
Date of Service August 31, 2023 Assessment & Plan (1) Diabetic infection of right foot: (2) Cellulitis: (3) Osteomyelitis of foot, right, acute: Plan Patient was examined and evaluated. POD #1 s/p right foot I&D - Discussed at length options with patient and with Dr. Gaviria. - Amenable to fifth ray resection for more definitive surgical intervention. Will add on to surgical schedule for tomorrow - Primary closure is unlikely given extensive nature of the wound. May benefit from wound vac application post resection. - Will place NPO after midnight for surgery around 4:00PM tomorrow. Admission and Anticipated Discharge Date Admission Date: August 29, 2023 Subjective Pt seen at bedside. No new concerns. Has been considering his options in the short and custodial with Dr. Gaviria. Amenable to treatment as needed for this diabetic foot infection. Feeling good post-op and with antibiotics. Review of Systems Constitutional: no fever, no chills and no fatigue Eyes: no problem reported Ear, Nose, Mouth, Throat: no problem reported Respiratory: no problem reported Cardiovascular: + edema; no problem reported Gastrointestinal: no nausea, no vomiting and no problem reported Musculoskeletal: no problem reported Integumentary: + skin ulcer, + wounds and + erythema Neurologic: + loss of sensation, + numbness and + pa resthesia; no generalized weakness Psychiatric: no problem reported Physical Exam Physical Exam: Right foot lower extremity focused exam: DP/PT pulses nonpalpable. Advance trophic changes noted throughout the foot with dystrophic toenails, thinning of the skin, nonpitting edema, and this nonhealing ulcer to the bottom of the right forefoot. Right foot ulceration plantarly extended through the fourth interspace to the dorsal and lateral foot. Obvious bone extension noted with clinical osteomyelitis noted to the fifth metatarsal. Extensive abscess/purulence surrounding the fifth metatarsal and base of the fifth toe. No proximal tracking of the purulence along the extrinsic tendons of the foot. Constitutional: WD/WN, vitals as above + ill appearing and + obese Eyes: PERRL, conjunctivae normal, anicteric sclerae ENMT: external ear and nose normal, oropharynx normal Neck: trachea midline, no thyromegaly normal visual inspection Respiratory: normal respiratory effort; no respiratory distress Cardiovascular: Rate/Rhythm: regular rate and regular rhythm Vessels: + posterior tibial pulses abnormal and + dorsalis pedis pulses abnormal Chest (Breasts): Chest: normal inspection of chest Gastrointestinal (Abdomen): Inspection/Auscultation: abdomen normal to inspection Percussion/Palpation: + abdomen tender and abdomen soft Musculoskeletal: no cyanosis or clubbing, extremities motor strength 5/5 Head/Neck/Chest: normocephalic and head atraumatic Extremities: extremities normal to inspection Neurologic: awake; + abnormal touch/pain/proprioception, + abnormal sensation to monofilament and no focal motor deficits Psychiatric: A+Ox3, euthymic affect Results & Data Results & Data Vital Signs (Past 12 Hours) Vital Signs Temp Pulse Pulse Resp BP BP Pulse Ox 08/31/23 20:03 36.8 C 64 18 156/82 H 96 08/31/23 15:23 36.8 C 66 16 171/86 H 96 08/31/23 12:43 175/78 H 08/31/23 12:17 36.8 C 60 18 170/90 H 97 O2 Del Method 08/31/23 20:03 Room Air 08/31/23 15:23 Room Air 08/31/23 12:43 08/31/23 12:17 Room Air (2) Cellulitis Laterality: right Site of cellulitis: extremity Site of cellulitis of extremity: lower extremity Qualified Code(s): L03.115 - Cellulitis of right lower limb
[2023-09-01] MEDS: INSULIN ASPART PER UNIT CHARGE SC SCH ×2 (00:09→18:33)
[2023-09-01 07:00] LABS: Hematocrit (blood only) 38.1 % (42.0-52.0); Hemoglobin 11.8 g/dl (14.0-18.0); Mean Corpuscular Hemoglobin 25.1 pg (25.0-34.0); Mean Corpuscular Volume 80.9 fL (80.0-100.0); Mean Platelet Volume 9.9 fL (9.4-12.4); Platelet Count 428 K/uL (130-400); RDW Standard Deviation 44.1 fL (36.4-46.3); Red Blood Count 4.71 M/uL (4.70-6.10); White Blood Count 9.16 K/ul (4.8-10.8)
[2023-09-01 07:28] LABS: BUN Creatinine Ratio 18.6 (10-20); Calcium 8.9 mg/dl (8.6-10.3); Creatinine Clr Calc Pharmacy 103.2 ml/min; Est GFR (African American) 97.3 ml/min; Est GFR (Non-African American) 83.9 ml/min
--- NOTE | 2023-09-01 09:52 | Infectious Disease Consult ---
Date of Consultation September 01, 2023 Assessment & Plan (1) Osteomyelitis of foot, right, acute: (2) Diabetes: (3) Cellulitis: Plan This is a 62-year-old man with a past medical history of DM2, diabetic peripheral neuropathy who presents with a right foot woundongoing for several weeks. About a week ago, he noted some bloody discharge when he was getting in the shower. He subsequently developed foot erythema that tracked up to his ankle and foot swelling. He denied fever, chills, sweats, nausea, vomiting, shortness of breath, cough. Wound is not painful. He reports decreased sensation of the bilateral feet. On admission he is afebrile. Heart rate 112, RR 15, BP 151/74. O2 sats 95% on room air. Labs: WBC 22.45-->14.8 , hemoglobin 12.1, hematocrit 37.3, BUN 23, creatinine 0.91 lactate 1.6, procalcitonin 1.04. Right foot x-ray showed soft tissue swelling without evidence of underlying bone abnormality. CT foot showed lateral and plantar soft tissue swelling at the distal aspect of the fifth metatarsal consistent with cellulitis; Focal cutaneous thickening, irregularity gas and enhancement at the level of the plantar of the distal fifth metatarsal C/W phlegmon and possible small superficial ruptured abscess. No underlying changes to indicate osteomyelitis. He received a dose of vancomycin and cefepime. He is currently on Unasyn. He was evaluated by podiatry and underwent right foot incision and drainage with bone biopsy on 08/29. He was found to have extensive undermining of the plantar wound that led to a pinpoint dorsal wound. This extended directly through the fourth interspace with another ulceration noted to the lateral aspect of the right foot. This combined tunneling and undermining system led to extensive necrosis surrounding the fifth metatarsal and tissue loss extending to the fifth toe: No proximal tracking noted along the long, extrinsic tendons of the foot. Clinically, there was evidence of softening of the fifth metatarsal head. The fifth metatarsal bone was sent for culture and pathology. Soft tissue also sent for culture. Superficial wound culture obtained on 08/25 growing group B Streptococcus. Intraoperative cultures from 08/29 growing group B Streptococcus from the bone culture as well as soft tissue cultures so far. He is scheduled for definitive surgical intervention today 08/31 (fifth ray resection) Per podiatry primary closure is unlikely given extensive nature of the wound. He may need wound VAC post resection. ID consulted for duration of antibiotics once source control achieved. On my initial evaluation, he feels well and is pending OR later today. He denies RLE pain. Erythema improved. Extensive plantar wound examined. Micro: Blood cultures 08/25 NGTD Wound culture 08/25 group B strep (ramirez S, including penicillin) Bone culture 08/29 rare GPC, group B strep (preliminary) Soft tissue/OR culture 08/29, few GPC, rare group B strep (preliminary) Antibiotics: Vancomycin 08/25 - 08/26 Cefepime 08/25 Unasyn 08/26ongoing # Right foot diabetic ulcer with cellulitis and abscess - s/p I&D 08/29: Culture GBS, so far Extensive soft tissue/wound tunneling noted in OR # Right fifth metatarsal osteomyelitis Bone culture 08/29+ group B strep Pending right fifth metatarsal amputation 08/31 # Poorly controlled DM2 with peripheral neuropathy -Hemoglobin A1c 11.3 # Sepsis, resolved Leukocytosis, tachycardia Recommendations: -Continue Unasyn 3 g IV every 6 hours. If no anaerobes, then can de-escalate to cefazolin 2 g IV every 8 hours. -Follow-up finalization of bone culture and soft tissue culture and pathology from 08/29 -Follow-up pending OR cultures and bone margins on 08/31. If no residual infection, he can likely complete a short course of pathogen directed oral antibiotics post OR date. If residual infection he will likely need a 6-week course of pathogen directed IV antibiotics from OR date. Thank you for this consult. ID will continue to follow Divina Raymond MD, MPH Infectious Disease [facility], [facility] Call [phone] with questions. Consultation Information Consultation was provided via telemedicine using two-way real-time interactive telecommunication between the patient and the telemedicine provider. For the duration of the visit, the provider was performing the assessment from a different facility than the patient. This includesuse of bluetooth stethoscope forauscultationperformed by the telepresenter that the telemedicine provider can hear if described in the physical exam. [employer] contact information: Please call [facility] Center . (Phone Number For Physician Use Only) After establishing a telemedicine visit, patient was: Patient was verified with two unique identifiers Time Spent with Patient: Initial => 75 min History of Present Illness Reason for Consultation: Duration of antibiotics post source control Requesting Physician: David Gaviria MD Attending Physician: Satcy Blue MD History of Present Illness This is a 62-year-old man with a past medical history of DM2, diabetic peripheral neuropathy who presents with a right foot woundongoing for several weeks. About a week ago, he noted some bloody discharge when he was getting in the shower. He subsequently developed foot erythema that tracked up to his ankle and foot swelling. He denied fever, chills, sweats, nausea, vomiting, shortness of breath, cough. Wound is not painful. He reports decreased sensation of the bilateral feet. On admission he is afebrile. Heart rate 112, RR 15, BP 151/74. O2 sats 95% on room air. Labs: WBC 22.45-->14.8 , hemoglobin 12.1, hematocrit 37.3, BUN 23, creatinine 0.91 lactate 1.6, procalcitonin 1.04. Right foot x-ray showed soft tissue swelling without evidence of underlying bone abnormality. CT foot showed lateral and plantar soft tissue swelling at the distal aspect of the fifth metatarsal consistent with cellulitis; Focal cuta neous thickening, irregularity gas and enhancement at the level of the plantar of the distal fifth metatarsal C/W phlegmon and possible small superficial ruptured abscess. No underlying changes to indicate osteomyelitis. He received a dose of vancomycin and cefepime. He is currently on Unasyn. He was evaluated by podiatry and underwent right foot incision and drainage with bone biopsy on 08/29. He was found to have extensive undermining of the plantar wound that led to a pinpoint dorsal wound. This extended directly through the fourth interspace with another ulceration noted to the lateral aspect of the right foot. This combined tunneling and undermining system led to extensive necrosis surrounding the fifth metatarsal and tissue loss extending to the fifth toe: No proximal tracking noted along the long, extrinsic tendons of the foot. Clinically, there was evidence of softening of the fifth metatarsal head. The fifth metatarsal bone was sent for culture and pathology. Soft tissue also sent for culture. Superficial wound culture obtained on 08/25 growing group B Streptococcus. Intraoperative cultures from 08/29 growing group B Streptococcus from the bone culture as well as soft tissue cultures so far. He is scheduled for definitive surgical intervention today 08/31 (fifth ray resection) Per podiatry primary closure is unlikely given extensive nature of the wound. He may need wound VAC post resection. ID consulted for duration of antibiotics once source control achieved. On my initial evaluation, he feels well and is pending OR later today. He denies RLE pain. Erythema improved. Extensive plantar wound examined. Allergies Allergy/AdvReac Type Severity Reaction Status Date / Time No Known Allergies Allergy Unverified 08/27/23 09:17 Home Medications Medication Instructions Recorded Confirmed Type None (Patient States No Home Meds) ##0 11/20/09 History atorvastatin 20 mg tablet 20 mg PO HS 08/30/23 08/30/23 History blood sugar diagnostic (OneTouch 08/30/23 08/30/23 History Verio test strips) cyanocobalamin (vitamin B-12) 5,000 mcg sublingual DAILY 08/30/23 08/30/23 History 2,500 mcg sublingual tablet (Vitamin B-12) gemfibrozil 600 mg tablet 600 mg PO BID 08/30/23 08/30/23 History glipizide 10 mg tablet, extended 10 mg PO BID 08/30/23 08/30/23 History release 24 hr lisinopril 20 1 tab PO DAILY 08/30/23 08/30/23 History mg-hydrochlorothiazide 12.5 mg tablet metformin 1,000 mg tablet 1,000 mg PO BID 08/30/23 08/30/23 History metoprolol tartrate 25 mg tablet 25 mg PO BID 08/30/23 08/30/23 History omeprazole 40 mg capsule,delayed 40 mg PO DAILY 08/30/23 08/30/23 History release tirzepatide 2.5 mg/0.5 mL 2.5 mg subcut WK 08/30/23 08/30/23 History subcutaneous pen injector (Mounjaro) tirzepatide 2.5 mg/0.5 mL 5 mg subcut WK 08/30/23 08/30/23 History subcutaneous pen injector (Mounjaro) tirzepatide 2.5 mg/0.5 mL 7.5 mg subcut WK 08/30/23 08/30/23 History subcutaneous pen injector (Mounjaro) Patient History Medical History Type 2 diabetes mellitus Social History Smoking Status: Former smoker Hx Alcohol Use: No Hx Substance Use: No Preferred Language: Amharic Communication Ability: Effective 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 Pertinent positives as per HPI. Physical Exam Physical Exam: Gen- nad, laying in bed Neck- supple Lung- No increased work of breathing Abd- soft, NT, ND Ext - Right foot dressing removed. + Foot edema. Plantar ulcer at 5th digit with sanguinous drainage post op day # 2. In between 4th and 5 th digit, continuguous ulcer from plantar wound draining pus. Not tender- pt with neuropathy. Not warm. Erythema resolved. Betadine staining from OR. Neuro- AAO*3 Psych- cooperative, normal mood. Results & Data Vital Signs (Past 12 Hours) Vital Signs Temp Pulse Resp BP Pulse Ox O2 Del Method 09/01/23 07:07 37.0 C 55 L 16 126/68 95 Room Air Laboratory Results Laboratory Results - last 48 hr 08/30/23 08/30/23 08/30/23 11:41 18:01 20:28 WBC RBC Hgb Hct MCV MCH MCHC RDW Std Deviation RDW Coeff of Mel Plt Count MPV Sodium Potassium Chloride Carbon Dioxide Anion Gap BUN Creatinine Est Cr Clr Drug Dosing Est GFR ( Amer) Est GFR (Non-Af Amer) BUN/Creatinine Ratio Glucose POC Glucose 158 H 136 H 185 H Calcium 08/31/23 08/31/23 08/31/23 07:24 07:36 11:36 WBC 13.53 H RBC 5.11 Hgb 12.6 L Hct 40.1 L MCV 78.5 L MCH 24.7 L MCHC 31.4 L RDW Std Deviation 42.4 RDW Coeff of Mel 14.8 H Plt Count 483 H MPV 9.9 Sodium 131 L Potassium 4.4 Chloride 97 L Carbon Dioxide 29 Anion Gap 5 BUN 16 Creatinine 0.88 Est Cr Clr Drug Dosing 113.7 Est GFR ( Amer) 107.5 Est GFR (Non-Af Amer) 92.7 BUN/Creatinine Ratio 18.2 Glucose 226 H POC Glucose 217 H 220 H Calcium 9.4 08/31/23 08/31/23 08/31/23 16:36 20:24 23:32 WBC RBC Hgb Hct MCV MCH MCHC RDW Std Deviation RDW Coeff of Mel Plt Count MPV Sodium Potassium Chloride Carbon Dioxide Anion Gap BUN Creatinine Est Cr Clr Drug Dosing Est GFR ( Amer) Est GFR (Non-Af Amer) BUN/Creatinine Ratio Glucose POC Glucose 197 H 216 H 169 H Calcium 09/01/23 09/01/23 05:54 05:58 WBC 9.16 RBC 4.71 Hgb 11.8 L Hct 38.1 L MCV 80.9 MCH 25.1 MCHC 31.0 L RDW Std Deviation 44.1 RDW Coeff of Mel 15.0 H Plt Count 428 H MPV 9.9 Sodium 135 L Potassium 4.0 Chloride 101 Carbon Dioxide 27 Anion Gap 7 BUN 18 Creatinine 0.97 Est Cr Clr Drug Dosing 103.2 Est GFR ( Amer) 97.3 Est GFR (Non-Af Amer) 83.9 BUN/Creatinine Ratio 18.6 Glucose 161 H POC Glucose 159 H Calcium 8.9 Diagnostic Findings Microbiology 08/26/23 18:08 Blood Aerobic Blood Culture - Final No growth in Aerobic bottle after 5 days. 08/26/23 18:08 Blood Anaerobic Blood Culture - Final No growth in Anaerobic bottle after 5 days. 08/30/23 Unknown Bone Gram Stain - Final 08/30/23 Unknown Bone Aerobic and Anaerobic Culture - Preliminary Group B Beta Strep 08/30/23 Unknown Foot,Right Gram Stain - Final 08/30/23 Unknown Foot,Right Aerobic and Anaerobic Culture - Preliminary Group B Beta Strep 08/26/23 18:22 Foot,Right Gram Stain - Final 08/26/23 18:22 Foot,Right Aerobic and Anaerobic Culture - Final Group B Beta Strep 08/26/23 16:10 Blood Aerobic Blood Culture - Preliminary No growth in Aerobic bottle after 48 hours. 08/26/23 16:10 Blood Anaerobic Blood Culture - Preliminary No growth in Anaerobic bottle after 48 hours. Medications Administered Home Medications Medication Instructions Recorded Confirmed Last Taken None (Patient States No Home Meds) ##0 11/20/09 Unknown atorvastatin 20 mg tablet 20 mg PO HS 08/30/23 08/30/23 Unknown blood sugar diagnostic (OneTouch 08/30/23 08/30/23 Unknown Verio test strips) cyanocobalamin (vitamin B-12) 5,000 mcg sublingual DAILY 08/30/23 08/30/23 Unknown 2,500 mcg sublingual tablet (Vitamin B-12) gemfibrozil 600 mg tablet 600 mg PO BID 08/30/23 08/30/23 Unknown glipizide 10 mg tablet, extended 10 mg PO BID 08/30/23 08/30/23 Unknown release 24 hr lisinopril 20 1 tab PO DAILY 08/30/23 08/30/23 Unknown mg-hydrochlorothiazide 12.5 mg tablet metformin 1,000 mg tablet 1,000 mg PO BID 08/30/23 08/30/23 Unknown metoprolol tartrate 25 mg tablet 25 mg PO BID 08/30/23 08/30/23 Unknown omeprazole 40 mg capsule,delayed 40 mg PO DAILY 08/30/23 08/30/23 Unknown release tirzepatide 2.5 mg/0.5 mL 2.5 mg subcut WK 08/30/23 08/30/23 Unknown subcutaneous pen injector (Mounjaro) tirzepatide 2.5 mg/0.5 mL 5 mg subcut WK 08/30/23 08/30/23 Unknown subcutaneous pen injector (Mounjaro) tirzepatide 2.5 mg/0.5 mL 7.5 mg subcut WK 08/30/23 08/30/23 Unknown subcutaneous pen injector (Mounjaro) Active Medications Generic Name Dose Route Start Last Admin Trade Name Freq PRN Reason Stop Dose Admin Ampicillin Sodium/Sulbactam 100 mls @ 200 mls/hr 08/27/23 10:00 09/01/23 04:48 Sodium 3,000 mg/ Sodium IV 09/03/23 09:59 Infused Chloride Q6H [facility] Infusion Insulin Aspart 5 units 08/27/23 17:00 09/01/23 08:36 Insulin Aspart Per Unit Charge SC 09/26/23 16:59 Not Given TIDM ANA Insulin Aspart 0 units 09/01/23 00:00 09/01/23 06:02 Insulin Aspart Per Unit Charge OK 09/29/23 20:59 Not Given Q6 ANA Insulin Glargine 15 units 08/27/23 21:00 08/31/23 21:14 Lantus Per Unit Charge SQ 09/26/23 20:59 15 units HS ANA Administration (3) Cellulitis Laterality: right Site of cellulitis: extremity Site of cellulitis of extremity: lower extremity Qualified Code(s): L03.115 - Cellulitis of right lower limb
[2023-09-01] MEDS: LACTATED RINGER'S 1,000 ML IV SCH (10:31)
--- NOTE | 2023-09-01 14:19 | Hospitalist Progress Note ---
Date of Service September 01, 2023 Assessment & Plan (1) Diabetic infection of right foot: Plan: Patient with abscess and surrounding cellulitis of the right foot, had I&D on 08/28 and found to have OM of 5th MT head as well as abscess and infection 5th digit Podiatry feels 5th met involvement recommends 2nd surgery 08/31 for amputation Blood cultures NGTD Wound cultures and bone culture all growing group B strep ID consult appreciated--> follow all cxs to final and if OM excised and no residual infection on bone cxs stump, can do short course of po abx. Otherwise, needs IV abx x 6 weeks Initially txd with Vanco and cefepime, currently on Unasyn FOllow CB, BMP (2) Type 2 diabetes mellitus: Plan: Patient's home regimen held on admission-hold glipizide,metformin, Mounjaro COntinue Lantus/Novolog Uncontrolled aith A1C 11.3% Continue BSG checks, sliding-scale insulin, hypoglycemic protocol Diabetes education involved as patient will be discharged on insulin Per DM education: He takes Metformin 1000mg BID at home. Recently started the Mounjaro 2.5mg weekly. First dose was 08/25. So far seems to be tolerating it well. He does have a glucose meter/supplies. He is agreeable to starting the Semglee. Plan upon discharge: 1.) Start Semglee 15 units daily. 2.) Continue Metformin and Mounjaro. 3.) SMBG 2x/day- fasting and evening (before supper or before bed). 4.) Notify provider of BG values > 200 x 3 days or any value < 80. 5.) Regular/balanced meals; increase protein intake to support healing. Recommend sending prescriptions to pharmacy day before discharge in case same has to be ordered. Pt will need the following prescriptions: 1.) Semglee Pen. 2.) Pen Needle 32 gauge x - to inject 1x/day. (3) Peripheral neuropathy: Plan: Patient with peripheral neuropathy on physical exam Most likely secondary to diabetes. Should have outpatient follow-up with PCP (4) GERD (gastroesophageal reflux disease): Plan: resume PPI (5) Hyperlipidemia: Plan: resume statin (6) HTN (hypertension), benign: Plan: hold lisinopril/HCT for now and resume post op if renal function stable and BPs acceptable Plan Code status: DNR/DNI DVT ppx: Discontinue Lovenox as patient is having nosebleeds. Ambulation encouraged Dispo: med/surg Admission and Anticipated Discharge Date Admission Date: August 29, 2023 Subjective Pt hungry, awaiting surgery today. No CP,SOB,nausea. No BM in 8 days and does not want to take anything-he does not want to move his bowels here at the hospital as he prefers his own toilet. Physical Exam Constitutional: WD/WN, vitals as above Respiratory: normal respiratory effort, lungs clear to auscultation Cardiovascular: RRR, no murmur, no edema Gastrointestinal (Abdomen): normal bowel sounds, soft, nontender, no h epatosplenomegaly Psychiatric: A+Ox3, euthymic affect Results & Data Results & Data Vital Signs (Past 12 Hours) Vital Signs Temp Pulse Resp BP Pulse Ox O2 Del Method 09/01/23 07:07 37.0 C 55 L 16 126/68 95 Room Air Laboratory Results CBC, BMP, wound and blood cxs reviewed PG Care Time/CCT Total # of Minutes Spent Total Time Spent with Patient: Total time spent is greater than 50% in coordination of care (as documented) at patient's floor/unit and/or counseling patient: Coding Level of Care Code 92940 SUB INP/OBS CARE 2/35MIN Diagnoses Diabetic infection of right foot E11.628; L08.9 Type 2 diabetes mellitus E11.9 Peripheral neuropathy G62.9 GERD (gastroesophageal reflux disease) K21.9 Hyperlipidemia E78.5 HTN (hypertension), benign I10
[2023-09-01] MEDS ORDERED: fentaNYL citrate PF 100 MCG/2 ML VIAL ONE (14:39)
[2023-09-01] MEDS ORDERED: MIDAZOLAM HCL 1 MG/ML 2ML VIAL ONE (14:39)
[2023-09-01] MEDS ORDERED: LIDOCAINE 2% 2 ML VIAL/AMP(20MG/ML) INFIL ONE (14:39)
[2023-09-01] MEDS ORDERED: PROPOFOL IV EMULSION 10 MG/ML 20 ML VIAL IV ONE (14:39)
--- NOTE | 2023-09-01 15:32 | History & Physical Bridge Note ---
Date of Service September 01, 2023 History & Physical Bridge Note I have examined the patient, reviewed the History & Physical and in the interval since the performance of the History & Physical I have noted the following changes of clinical significance: no changes noted. Plan for right fifth ray resection. All questions answered. Consent obtained.
[2023-09-01] MEDS ORDERED: ATROPINE SULFATE 0.1 MG/ML 10ML SYR IV PRN (15:37)
[2023-09-01] MEDS ORDERED: fentaNYL citrate PF 100 MCG/2 ML VIAL IV PRN (15:37)
[2023-09-01] MEDS ORDERED: ONDANSETRON INJ 2 MG/ML 2 ML VIAL IV PRN (15:37)
[2023-09-01] MEDS ORDERED: ePHEDrine sulfate 50 MG/ML AMP IV PRN (15:37)
--- NOTE | 2023-09-01 15:37 | Anesthesiology Consultation ---
Date of Service September 01, 2023 Assessment & Plan Chart Review Chart Review: Acceptable Risk for Surgery and Patient NOT seen in Pre Admission Testing Consults Requested none ASA ASA3 Proposed Anesthesia Anesthesia Type: MAC Risk / Benefits Reviewed With: PT / POA / Parent / Guardian, Accepts Plan and Informed Consent Obtained History Surgery Operation Date: 08/30/23 07:00 Proposed Procedures p Right Foot Incision and Drainage with Bone Biopsy - Jack Trujillo DPM Operation Date: 09/01/23 07:00 Proposed Procedures p Right Foot Fifth Ray Resection - Jack Trujillo DPM Height/Weight Height: 5 ft 11 in Weight: 115.1 kg Allergies Allergy/AdvReac Type Severity Reaction Status Date / Time No Known Allergies Allergy Unverified 08/27/23 09:17 Medications Home Medications Medication Instructions Recorded Confirmed Last Taken None (Patient States No Home Meds) ##0 11/20/09 Unknown atorvastatin 20 mg tablet 20 mg PO HS 08/30/23 08/30/23 Unknown blood sugar diagnostic (OneTouch 08/30/23 08/30/23 Unknown Verio test strips) cyanocobalamin (vitamin B-12) 5,000 mcg sublingual DAILY 08/30/23 08/30/23 Unknown 2,500 mcg sublingual tablet (Vitamin B-12) gemfibrozil 600 mg tablet 600 mg PO BID 08/30/23 08/30/23 Unknown glipizide 10 mg tablet, extended 10 mg PO BID 08/30/23 08/30/23 Unknown release 24 hr lisinopril 20 1 tab PO DAILY 08/30/23 08/30/23 Unknown mg-hydrochlorothiazide 12.5 mg tablet metformin 1,000 mg tablet 1,000 mg PO BID 08/30/23 08/30/23 Unknown metoprolol tartrate 25 mg tablet 25 mg PO BID 08/30/23 08/30/23 Unknown omeprazole 40 mg capsule,delayed 40 mg PO DAILY 08/30/23 08/30/23 Unknown release tirzepatide 2.5 mg/0.5 mL 2.5 mg subcut WK 08/30/23 08/30/23 Unknown subcutaneous pen injector (Brockunnini) tirzepatide 2.5 mg/0.5 mL 5 mg subcut WK 08/30/23 08/30/23 Unknown subcutaneous pen injector (Mounjaro) tirzepatide 2.5 mg/0.5 mL 7.5 mg subcut WK 08/30/23 08/30/23 Unknown subcutaneous pen injector (Gisellekyleigh) Active Medications Generic Name Dose Route Start Last Admin Trade Name Deep PRN Reason Stop Dose Admin Ampicillin Sodium/Sulbactam 100 mls @ 200 mls/hr 08/27/23 10:00 09/01/23 10:30 Sodium 3,000 mg/ Sodium IV 09/03/23 09:59 Infused Chloride Q6H ANA Infusion Lactated Ringer's 1,000 mls @ 80 mls/hr 09/01/23 09:45 09/01/23 10:31 Lr IV 09/01/23 22:14 80 mls/hr .[id number] ANA Administration Insulin Aspart 5 units 08/27/23 17:00 09/01/23 12:48 Insulin Aspart Per Unit Charge SC 09/26/23 16:59 Not Given TIDM ANA Insulin Aspart 0 units 09/01/23 00:00 09/01/23 12:48 Insulin Aspart Per Unit Charge SC 09/29/23 20:59 Not Given Q6 ANA Insulin Glargine 15 units 08/27/23 21:00 08/31/23 21:14 Lantus Per Unit Charge SQ 09/26/23 20:59 15 units HS ANA Administration NPO Date Last Intake of Fluids: 09/01/23 Time Last Intake of Fluids: 06:00 Last Intake of Fluids Comment: sips Date Last Intake of Solids: 08/31/23 Time Last Intake of Solids: 17:30 Past Medical History Medical History (Updated 09/01/23 @ 14:33 by Stacy Blue MD) HTN (hypertension), benign Hyperlipidemia GERD (gastroesophageal reflux disease) Type 2 diabetes mellitus Exercise / Class Metabolic Activity II 4-5 Yardwork/Stairs/Walk up hill Past Anesthesia History No Hx of Anesthesia Complications and No Family Hx of Anesthesia Complications History of PONV No Hx of PONV and No Hx of Motion Sickness Social History Smoking Status: Former smoker Hx Alcohol Use: No Hx Substance Use: No Physical Exam Vital Signs Last Vital Signs Temp 36.8 C 09/01/23 15:03 Pulse 61 09/01/23 15:03 Resp 18 09/01/23 15:03 BP 153/83 H 09/01/23 15:03 Pulse Ox 94 09/01/23 15:03 O2 Del Method Room Air 09/01/23 15:03 O2 Flow Rate 3 08/30/23 18:05 Constitutional + obese ENMT Mouth: + edentulous Thyromental Distance: > or= 3.5 Finger Breadths Mallampati Class: II Neck normal visual inspection Respiratory normal respiratory effort Auscultation: lungs clear to auscultation bilaterally Cardiovascular Rate/Rhythm: regular rate and regular rhythm Psychiatric Orientation: alert Testing Laboratory Results 09/01/23 05:54 09/01/23 05:54 PT 11.7 Seconds (9.0-12.0) 08/26/23 16:10 INR 1.1 (0.9-1.1) 08/26/23 16:10 APTT 31 Seconds (21-31) 08/26/23 16:10 Hemoglobin A1c 11.3 % (4.5-5.6) H 08/27/23 06:54 Urine Color Yellow 08/26/23 20:00 Urine Appearance Clear (Clear) 08/26/23 20:00 Urine pH 5.0 (4.5-7.5) 08/26/23 20:00 Ur Specific [place] 1.045 (1.000-1.030) H 08/26/23 20:00 Urine Protein 1+ (Negative) H 08/26/23 20:00 Urine Glucose (UA) Negative (Negative) 08/26/23 20:00 Urine Ketones 1+ (Negative) H 08/26/23 20:00 Urine Nitrite Negative (Negative) 08/26/23 20:00 Ur Leukocyte Esterase Negative (Negative) 08/26/23 20:00 Urine WBC (Auto) 0-5 /hpf (0-5) 08/26/23 20:00 Urine RBC (Auto) 0-2 /hpf (0-2) 08/26/23 20:00 U Hyaline Cast (Auto) 0-2 /lpf (0-2) 08/26/23 20:00 U Epithel Cells (Auto) 0-2 /hpf (0-2) 08/26/23 20:00 Urine Bacteria (Auto) None Seen (None Seen) 08/26/23 20:00 08/26/23 18:08 Aerobic Blood Culture - Final Blood No growth in Aerobic bottle after 5 days. Anaerobic Blood Culture - Final No growth in Anaerobic bottle after 5 days. 08/30/23 Unknown Gram Stain - Final Bone Aerobic and Anaerobic Culture - Preliminary Group B Beta Strep 08/30/23 Unknown Gram Stain - Final Foot,Right Aerobic and Anaerobic Culture - Preliminary Group B Beta Strep 08/26/23 18:22 Gram Stain - Final Foot,Right Aerobic and Anaerobic Culture - Final Group B Beta Strep 08/26/23 16:10 Aerobic Blood Culture - Preliminary Blood No growth in Aerobic bottle after 48 hours. Anaerobic Blood Culture - Preliminary No growth in Anaerobic bottle after 48 hours. 09/01/23 09/01/23 11:36 05:58 POC Glucose 149 H 159 H
[2023-09-01] MEDS: BUPIVACAINE 0.5 % 5 MG/1 ML MPF 30ML VIAL INFIL ONE (16:20)
--- NOTE | 2023-09-01 17:12 | Anesthesiology Progress Note ---
Date of Service September 01, 2023 Anesthesia Post Procedure Vital Signs Vital Signs: Temp Pulse Pulse Resp BP BP Pulse Ox 09/01/23 17:06 36.7 C 58 L 16 152/79 H 95 09/01/23 16:45 36.5 C 59 L 18 128/76 95 09/01/23 16:35 60 20 126/73 99 09/01/23 16:28 36.6 C 62 18 172/84 H 98 09/01/23 15:03 36.8 C 61 18 153/83 H 94 09/01/23 07:07 37.0 C 55 L 16 126/68 95 08/31/23 20:03 36.8 C 64 18 156/82 H 96 O2 Del Method O2 Flow Rate 09/01/23 17:06 Room Air 09/01/23 16:45 Room Air 09/01/23 16:35 Oxymask 10 09/01/23 16:28 Oxymask 10 09/01/23 15:03 Room Air 09/01/23 07:07 Room Air 08/31/23 20:03 Room Air Pain Intensity Right Foot: Pain Intensity: 5 Transfer of Care Handoff Completed per policy Notes Mental Status: alert / awake / arousable Patient Amnestic to Procedure: Yes Nausea / Vomiting: adequately controlled Pain: adequately controlled Airway Patency, RR, SpO2: stable & adequate BP & HR: stable & adequate Hydration State: stable & adequate Anesthetic Complications: no major complications apparent
--- NOTE | 2023-09-01 17:14 | Post Operative Brief Note ---
Immediate Post Op Note Date of Surgery September 01, 2023 Pre & Post Diagnosis Operation Date: 09/01/23 07:00 Pre-Op Diagnosis: (1) Diabetic infection of right foot: (2) Cellulitis: (3) Osteomyelitis of foot, right, acute: Post-Op Diagnosis: (1) Diabetic infection of right foot: (2) Cellulitis: (3) Osteomyelitis of foot, right, acute: I identified the patient and participated in the time-out.: Yes Procedure Operation Date: 09/01/23 07:00 Actual Procedures p Right Foot Fifth Ray Resection(Right) - Jack Trujillo DPM Surgeon Jack Trujillo DPM Consumer Insights Specialist None Estimated Blood Loss 30 Findings Consistent with Post-Op Diagnosis Specimens Bone biopsy Anesthesia Type MAC Complications none Disposition Accompanied Patient To Recovery: Yes Disposition: Recovery Room
[2023-09-01] MEDS ORDERED: Nursing to Pharmacy Communication SCH (18:30)
[2023-09-01] MEDS: METOPROLOL TARTRATE 25 MG TAB PO SCH (20:56)
[2023-09-01] MEDS: ATORVASTATIN 20 MG TAB PO SCH (20:56)
[2023-09-02 07:28] LABS: Hematocrit (blood only) 39.9 % (42.0-52.0); Hemoglobin 12.5 g/dl (14.0-18.0); Mean Corpuscular Hemoglobin 25.5 pg (25.0-34.0); Mean Corpuscular Hgb Conc 31.3 g/dL (32.0-36.0); Mean Corpuscular Volume 81.3 fL (80.0-100.0); Mean Platelet Volume 9.6 fL (9.4-12.4); Platelet Count 449 K/uL (130-400); Red Blood Count 4.91 M/uL (4.70-6.10); White Blood Count 10.74 K/ul (4.8-10.8)
[2023-09-02 07:52] LABS: BUN Creatinine Ratio 14.6 (10-20); Calcium 9.2 mg/dl (8.6-10.3); Creatinine Clr Calc Pharmacy 112.5 ml/min; Est GFR (Non-African American) 92.3 ml/min; Potassium 4.3 mmol/L (3.5-5.1)
[2023-09-02] MEDS: CYANOCOBALAMIN (B-12) 2,500 MCG TABLET SL SCH (08:50)
[2023-09-02] MEDS: PANTOprazole 40 MG TAB PO SCH (08:50)
--- NOTE | 2023-09-02 12:57 | Infectious Disease Progress Nt ---
Date of Service September 02, 2023 Assessment & Plan (1) Osteomyelitis of foot, right, acute: (2) Diabetes: (3) Cellulitis: Plan This is a 62-year-old man with a past medical history of DM2, diabetic peripheral neuropathy who presents with a right foot woundongoing for several weeks. About a week ago, he noted some bloody discharge when he was getting in the shower. He subsequently developed foot erythema that tracked up to his ankle and foot swelling. He denied fever, chills, sweats, nausea, vomiting, shortness of breath, cough. Wound is not painful. He reports decreased sensation of the bilateral feet. On admission he is afebrile. Heart rate 112, RR 15, BP 151/74. O2 sats 95% on room air. Labs: WBC 22.45-->14.8 , hemoglobin 12.1, hematocrit 37.3, BUN 23, creatinine 0.91 lactate 1.6, procalcitonin 1.04. Right foot x-ray showed soft tissue swelling without evidence of underlying bone abnormality. CT foot showed lateral and plantar soft tissue swelling at the distal aspect of the fifth metatarsal consistent with cellulitis; Focal cutaneous thickening, irregularity gas and enhancement at the level of the plantar of the distal fifth metatarsal C/W phlegmon and possible small superficial ruptured abscess. No underlying changes to indicate osteomyelitis. He received a dose of vancomycin and cefepime. He is currently on Unasyn. He was evaluated by podiatry and underwent right foot incision and drainage with bone biopsy on 08/29. He was found to have extensive undermining of the plantar wound that led to a pinpoint dorsal wound. This extended directly through the fourth interspace with another ulceration noted to the lateral aspect of the right foot. This combined tunneling and undermining system led to extensive necrosis surrounding the fifth metatarsal and tissue loss extending to the fifth toe: No proximal tracking noted along the long, extrinsic tendons of the foot. Clinically, there was evidence of softening of the fifth metatarsal head. The fifth metatarsal bone was sent for culture and pathology. Soft tissue also sent for culture. Superficial wound culture obtained on 08/25 growing group B Streptococcus. Intraoperative cultures from 08/29 growing group B Streptococcus from the bone culture as well as soft tissue cultures so far. He underwent Right Foot Fifth Ray Resection on 08/31.Per brief Op note, bone biopsy sent for pathology. ID consulted for duration of antibiotics once source control achieved. On my evaluation, he feels well pos OR. He denies RLE pain. Erythema improved. Micro: Blood cultures 08/25 NGTD Wound culture 08/25 group B strep (ramirez S, including penicillin) Bone culture 08/29 rare GPC, group B strep (ramirez S, including penicillin)(preliminary) Soft tissue/OR culture 08/29, few GPC, rare group B strep (ramirez S, including penicillin)(preliminary) Pathology 08/29 R 5th Metatarsal Pending 08/31 R 5th ray pending Antibiotics: Vancomycin 08/25 - 08/26 Cefepime 08/25 Unasyn 08/26ongoing # Right foot diabetic ulcer with cellulitis and abscess - s/p I&D 08/29: Culture GBS, so far Extensive soft tissue/wound tunneling noted in OR # Right fifth metatarsal osteomyelitis Bone culture 08/29+ group B strep so far , S/p right fifth ray amputation 08/31, BONE PATH pending # Poorly controlled DM2 with peripheral neuropathy -Hemoglobin A1c 11.3 # Sepsis, resolved Leukocytosis, tachycardia Recommendations: -Continue Unasyn 3 g IV every 6 hours. If no anaerobes, then can de-escalate to cefazolin 2 g IV every 8 hours. -Follow-up finalization of bone culture and soft tissue culture and pathology from 08/29 -Follow-up bone path margins on 08/31. If no residual infection, he can likely complete a short course of pathogen directed oral antibiotics post OR date. If residual infection he will likely need a 6-week course of pathogen directed IV antibiotics from OR date. If No anaerobes and no remaining Osteomyelitis, can dc on Amoxicillin 1 g Po q8 hrs ( cr cl >100) for 10 day post amputation. EOT 09/10. If residual osteomyelitis/ positive margins post amputation on 08/31 , he will need a Picc and 6 weeks of Ancef 2g Iv q8 hrs IF only group B strep growth ( in that case EOt 10/12). If termite renewal inspector abx, then weekly cbc with diff, bmp, lft, esr, crp on abx and follow up with local ID and podiatry. [facility] will not round over the weekend. Please call [phone] with questions. Divina Raymond MD, MPH Infectious Disease [facility], [facility] Admission and Anticipated Discharge Date Admission Date: August 29, 2023 Subjective Subsequent visit was provided via telemedicine using two-way real-time interactive telecommunication between the patient and the telemedicine provider. For the duration of the visit, the provider was performing the assessment from a different facility than the patient. This includesuse of bluetooth stethoscope forauscultationperformed by the telepresenter that the telemedicine provider can hear if described in the physical exam. Nuclear Medicine Physician contact information: Please call [facility] Call Center [phone]. (Phone Number For Physician Use Only) After establishing a telemedicine visit, patient was: Patient was verified with two unique identifiers Time Spent with Patient: Subsequent => 35 min He is s/p Right Foot Fifth Ray Resection on 08/31. Bone biopsy sent for path. He feels well. Denies fever, chills, foot pain. Physical Exam Physical Exam: Gen- nad Neck- supple Lung- No increased work of breathing Abd- soft, NT, ND Ext - Right foot dressed post OR Neuro- AAO*3 Psych- cooperative, normal mood. Results & Data Vital Signs (Past 12 Hours) Vital Signs Temp Pulse Pulse Resp BP BP Pulse Ox 09/02/23 12:31 36.8 C 56 L 16 147/74 H 97 09/02/23 08:40 61 20 146/75 H 95 09/02/23 07:27 36.8 C 60 14 126/60 97 09/02/23 06:49 36.8 C 55 L 16 143/79 H 93 09/02/23 03:34 37 C 56 L 18 117/66 96 O2 Del Method 09/02/23 12:31 Room Air 09/02/23 08:40 Room Air 09/02/23 07:27 Room Air 09/02/23 06:49 Room Air 09/02/23 03:34 Room Air Laboratory Results Short CBC 09/02/23 Range/Units 06:25 WBC 10.74 (4.8-10.8) K/ul Hgb 12.5 L (14.0-18.0) g/dl Hct 39.9 L (42.0-52.0) % Plt Count 449 H (130-400) K/uL BMP 09/02/23 06:25 Sodium 134 L Potassium 4.3 Chloride 101 Carbon Dioxide 27 BUN 13 Creatinine 0.89 Glucose 159 H Calcium 9.2 Diagnostic Findings Microbiology 08/26/23 16:10 Blood Aerobic Blood Culture - Final No growth in Aerobic bottle after 5 days. 08/26/23 16:10 Blood Anaerobic Blood Culture - Final No growth in Anaerobic bottle after 5 days. 08/30/23 Unknown Foot,Right Gram Stain - Final 08/30/23 Unknown Foot,Right Aerobic and Anaerobic Culture - Preliminary Group B Beta Strep 08/30/23 Unknown Bone Gram Stain - Final 08/30/23 Unknown Bone Aerobic and Anaerobic Culture - Preliminary Group B Beta Strep 08/26/23 18:08 Blood Aerobic Blood Culture - Final No growth in Aerobic bottle after 5 days. 08/26/23 18:08 Blood Anaerobic Blood Culture - Final No growth in Anaerobic bottle after 5 days. 08/26/23 18:22 Foot,Right Gram Stain - Final 08/26/23 18:22 Foot,Right Aerobic and Anaerobic Culture - Final Group B Beta Strep Medications Administered Home Medications Medication Instructions Recorded Confirmed Last Taken None (Patient States No Home Meds) ##0 11/20/09 Unknown atorvastatin 20 mg tablet 20 mg PO HS 08/30/23 08/30/23 Unknown blood sugar diagnostic (OneTouch 08/30/23 08/30/23 Unknown Verio test strips) cyanocobalamin (vitamin B-12) 5,000 mcg sublingual DAILY 08/30/23 08/30/23 Unknown 2,500 mcg sublingual tablet (Vitamin B-12) gemfibrozil 600 mg tablet 600 mg PO BID 08/30/23 08/30/23 Unknown glipizide 10 mg tablet, extended 10 mg PO BID 08/30/23 08/30/23 Unknown release 24 hr lisinopril 20 1 tab PO DAILY 08/30/23 08/30/23 Unknown mg-hydrochlorothiazide 12.5 mg tablet metformin 1,000 mg tablet 1,000 mg PO BID 08/30/23 08/30/23 Unknown metoprolol tartrate 25 mg tablet 25 mg PO BID 08/30/23 08/30/23 Unknown omeprazole 40 mg capsule,delayed 40 mg PO DAILY 08/30/23 08/30/23 Unknown release tirzepatide 2.5 mg/0.5 mL 2.5 mg subcut WK 08/30/23 08/30/23 Unknown subcutaneous pen injector (Mounjaro) tirzepatide 2.5 mg/0.5 mL 5 mg subcut WK 08/30/23 08/30/23 Unknown subcutaneous pen injector (Mounjaro) tirzepatide 2.5 mg/0.5 mL 7.5 mg subcut WK 08/30/23 08/30/23 Unknown subcutaneous pen injector (Mounjaro) Active Medications Generic Name Dose Route Start Last Admin Trade Name Nashq PRN Reason Stop Dose Admin Atorvastatin Calcium 20 mg 09/01/23 21:00 09/01/23 20:56 Atorvastatin 20 Mg Tab PO 10/01/23 20:59 20 mg HS ANA Administration Cyanocobalamin 5,000 mcg 09/02/23 09:00 09/02/23 08:50 Cyanocobalamin (B-12) 2,500 Mcg Tablet SL 10/02/23 08:59 5,000 mcg DAILY ANA Administration Ampicillin Sodium/Sulbactam 100 mls @ 200 mls/hr 08/27/23 10:00 09/02/23 10:00 Sodium 3,000 mg/ Sodium IV 09/03/23 09:59 Infused Chloride Q6H ANA Infusion Insulin Aspart 5 units 08/27/23 17:00 09/02/23 12:26 Insulin Aspart Per Unit Charge SC 09/26/23 16:59 5 units TIDM ANA Administration Insulin Aspart 0 units 09/01/23 18:25 09/02/23 12:27 Insulin Aspart Per Unit Charge SC 10/01/23 18:24 1 units ACHS ANA Administration Insulin Glargine 15 units 08/27/23 21:00 09/01/23 20:56 Lantus Per Unit Charge SQ 09/26/23 20:59 15 units HS ANA Administration Metoprolol Tartrate 25 mg 09/01/23 21:00 09/02/23 08:50 Metoprolol Tartrate 25 Mg Tab PO 10/01/23 20:59 25 mg BID ANA Administration Pantoprazole Sodium 40 mg 09/02/23 09:00 09/02/23 08:50 Pantoprazole 40 Mg Tab PO 10/02/23 08:59 40 mg DAILY ANA Administration (3) Cellulitis Laterality: right Site of cellulitis: extremity Site of cellulitis of extremity: lower extremity Qualified Code(s): L03.115 - Cellulitis of right lower limb
--- NOTE | 2023-09-02 13:34 | Hospitalist Progress Note ---
Date of Service September 02, 2023 Assessment & Plan (1) Diabetic infection of right foot: Plan: Patient with abscess and surrounding cellulitis of the right foot, had I&D on 08/28 and found to have OM of 5th MT head as well as abscess and infection 5th digit Podiatry feels 5th met involvement and went on to have a 2nd surgery 08/31 for amputation Blood cultures NGTD Wound cultures and bone culture all growing group B strep thus far, not yet finalized ID consult appreciated--> Continue Unasyn 3 g IV every 6 hours. If no anaerobes, then can de-escalate to cefazolin 2 g IV every 8 hours. Follow-up finalization of bone culture and soft tissue culture and pathology from 08/29 Follow-up bone path margins on 08/31. If no residual infection, no anaerobes and no remaining Osteomyelitis, can dc on Amoxicillin 1 g Po q8 hrs ( cr cl >100) for 10 day post amputation. EOT 09/10. If residual osteomyelitis/ positive margins post amputation on 08/31 , he will need a Picc and 6 weeks of Ancef 2g Iv q8 hrs IF only group B strep growth ( in that case EOT 10/12). If terminal manager abx, then weekly cbc with diff, bmp, lft, esr, crp on abx and follow up with local ID and podiatry. Wound Vac to be placed by Wound Care when possible. print traffic manager aware of need for possible IV abx and for wound vac with home health (2) Type 2 diabetes mellitus: Plan: Patient's home regimen held on admission-hold glipizide,metformin, Mounjaro Continue Lantus/Novolog while in hospital Uncontrolled with A1C 11.3% Continue BSG checks, hypoglycemic protocol Diabetes education involved as patient will be discharged on insulin, resume Mounjaro and metformin, but DC glipizide after starting insulin Per DM education: He takes Metformin 1000mg BID at home. Recently started the Mounjaro 2.5mg eliseo [place]. First dose was 08/25. So far seems to be tolerating it well. He does have a glucose meter/supplies. He is agreeable to starting the Semglee. Plan upon discharge: 1.) Start Semglee 15 units daily. 2.) Continue Metformin and Mounjaro. 3.) SMBG 2x/day- fasting and evening (before supper or before bed). 4.) Notify provider of BG values > 200 x 3 days or any value < 80. 5.) Regular/balanced meals; increase protein intake to support healing. Recommend sending prescriptions to pharmacy day before discharge in case same has to be ordered. Pt will need the following prescriptions: 1.) Semglee Pen. 2.) Pen Needle 32 gauge x 5/32 - to inject 1x/day. (3) HTN (hypertension), benign: Plan: will now resume home lisinopril/HCT as renal function stable and BPs acceptable continue home metoprolol (4) Peripheral neuropathy: Plan: Patient with peripheral neuropathy on physical exam Most likely secondary to diabetes. Should have outpatient follow-up with PCP (5) GERD (gastroesophageal reflux disease): Plan: continue PPI (6) Hyperlipidemia: Plan: continue statin Plan Code status: DNR/DNI DVT ppx: Discontinued Lovenox as patient is having nosebleeds, add SCD to left leg Dispo: continued stay on med/surg, dc to home once bone path returned, wound vac in place, and possible home IV antibiotics arranged (if needed)-likely not until Tuesday Admission and Anticipated Discharge Date Admission Date: August 29, 2023 Subjective Pt denies pain in foot, no problems. Still no BM in 9 days and does not want to take anything to help this along. Denies abd pain or nausea, is eating. Is passing flatus. Denies CP, SOB. I discussed his care with Podiatry at the bedside Physical Exam Constitutional: WD/WN, vitals as above Respiratory: normal respiratory effort, lungs clear to auscultation Cardiovascular: RRR, no murmur, no edema Gastrointestinal (Abdomen): normal bowel sounds, soft, nontender, no hepatosplenomegaly Musculoskeletal: right foot in dressing and MOON wrap not removed Psychiatric: A+Ox3, euthymic affect Results & Data Results & Data Vital Signs (Past 12 Hours) Vital Signs Temp Pulse Pulse Resp BP BP Pulse Ox 09/02/23 13:25 36.8 C 18 136/89 98 09/02/23 12:31 36.8 C 56 L 16 147/74 H 97 09/02/23 08:40 61 20 146/75 H 95 09/02/23 07:27 36.8 C 60 14 126/60 97 09/02/23 06:49 36.8 C 55 L 16 143/79 H 93 09/02/23 03:34 37 C 56 L 18 117/66 96 O2 Del Method 09/02/23 13:25 Room Air 09/02/23 12:31 Room Air 09/02/23 08:40 Room Air 09/02/23 07:27 Room Air 09/02/23 06:49 Room Air 09/02/23 03:34 Room Air Laboratory Results CBC, BMP, wound and bone cxs reviewed, blood cxs reviewed-NGTD bone path pending from 08/29 and 08/31 PG Care Time/CCT Total # of Minutes Spent Total Time Spent with Patient: Total time spent is greater than 50% in coordination of care (as documented) at patient's floor/unit and/or counseling patient: Coding Level of Care Code 37193 SUB INP/OBS CARE 2/35MIN Diagnoses Diabetic infection of right foot E11.628; L08.9 Type 2 diabetes mellitus E11.9 HTN (hypertension), benign I10 Peripheral neuropathy G62.9 GERD (gastroesophageal reflux disease) K21.9 Hyperlipidemia E78.5
--- NOTE | 2023-09-02 14:31 | Podiatry Progress Note ---
Date of Service September 02, 2023 Assessment & Plan (1) Diabetic infection of right foot: (2) Cellulitis: (3) Osteomyelitis of foot, right, acute: Plan Patient was examined and evaluated. POD #1 s/p right foot fifth ray resection - Discussed at length options with patient and with Dr. Blue - Should continue with IV antibiotics for now and likely home on oral antibiotics, when cleared with other specialties. - We'll likely benefit long-term from wound VAC placement. Wound care has been consulted for this. - If wound care is able to see him today, they can pull the iodoform gauze and apply the wound VAC. - A wound VAC will be applied until Tuesday, I will likely see him over the weekend to pull the dressing before VAC application. - Patient remains clinically avascular, no evidence of significant bleeding to the surgical site during surgical dissection. Prognosis and limb salvage is guarded. - Will continue to follow. Admission and Anticipated Discharge Date Admission Date: August 29, 2023 Subjective Patient seen at bedside, now 1 day status post right fifth ray resection. Doing well without any concerns or complaints. He denies aany pain in the foot. Has been ambulating without concern. Is interested in going home as soon as possible still. Seen at bedside with Dr. Blue. Review of Systems Constitutional: no fever, no chills and no fatigue Eyes: no problem reported Ear, Nose, Mouth, Throat: no problem reported Respiratory: no problem reported Cardiovascular: + edema; no problem reported Gastrointestinal: no nausea, no vomiting and no problem reported Musculoskeletal: no problem reported Integumentary: + skin ulcer, + wounds and + erythema Neurologic: + loss of sensation, + numbness and + pa resthesia; no generalized weakness Psychiatric: no problem reported Physical Exam Physical Exam: Right foot lower extremity focused exam: DP/PT pulses nonpalpable. Advance trophic changes noted throughout the foot with dystrophic toenails, thinning of the skin, nonpitting edema, and this nonhealing ulcer to the bottom of the right forefoot. Dressing left intact today, though the ulceration and surgical site remains open. All nonviable bone was able to be resected, though the infection did extend through the soft tissue plantarly along the intrinsic tendons of the plantar aspect of the foot.. Drainage was still noted, though this did not extend to the bone on surgical exam. Constitutional: WD/WN, vitals as above + ill appearing and + obese Eyes: PERRL, conjunctivae normal, anicteric sclerae ENMT: external ear and nose normal, oropharynx normal Neck: trachea midline, no thyromegaly normal visual inspection Respiratory: normal respiratory effort; no respiratory distress Cardiovascular: Rate/Rhythm: regular rate and regular rhythm Vessels: + posterior tibial pulses abnormal and + dorsalis pedis pulses abnormal Chest (Breasts): Chest: normal inspection of chest Gastrointestinal (Abdomen): Inspection/Auscultation: abdomen normal to inspection Percussion/Palpation: + abdomen tender and abdomen soft Musculoskeletal: no cyanosis or clubbing, extremities motor strength 5/5 Head/Neck/Chest: normocephalic and head atraumatic Extremities: extremities normal to inspection Neurologic: awake; + abnormal touch/pain/proprioception, + abnormal sensation to monofilament and no focal motor deficits Psychiatric: A+Ox3, euthymic affect Results & Data Results & Data Vital Signs (Past 12 Hours) Vital Signs Temp Pulse Pulse Resp BP BP Pulse Ox 09/02/23 13:25 36.8 C 18 136/89 98 09/02/23 12:31 36.8 C 56 L 16 147/74 H 97 09/02/23 08:40 61 20 146/75 H 95 09/02/23 07:27 36.8 C 60 14 126/60 97 09/02/23 06:49 36.8 C 55 L 16 143/79 H 93 09/02/23 03:34 37 C 56 L 18 117/66 96 O2 Del Method 09/02/23 13:25 Room Air 09/02/23 12:31 Room Air 09/02/23 08:40 Room Air 09/02/23 07:27 Room Air 09/02/23 06:49 Room Air 09/02/23 03:34 Room Air (2) Cellulitis Laterality: right Site of cellulitis: extremity Site of cellulitis of extremity: lower extremity Qualified Code(s): L03.115 - Cellulitis of right lower limb
[2023-09-03 07:01] LABS: Basophils # (auto) 0.08 K/uL (0.00-0.20); Basophils % (auto) 0.8 %; Eosinophils # (auto) 0.43 K/uL (0.00-0.50); Eosinophils % (auto) 4.6 %; Hematocrit (blood only) 37.8 % (42.0-52.0); Hemoglobin 11.9 g/dl (14.0-18.0); Immature Granulocytes # (auto) 0.09 K/uL (0.01-0.20); Mean Corpuscular Hemoglobin 24.8 pg (25.0-34.0); Mean Corpuscular Hgb Conc 31.5 g/dL (32.0-36.0); Mean Corpuscular Volume 78.8 fL (80.0-100.0); Mean Platelet Volume 9.9 fL (9.4-12.4); Monocytes # (auto) 0.56 K/uL (0.11-0.59); Monocytes % (auto) 5.9 %; Neutrophils # (auto) 6.58 K/uL (1.40-6.50); Neutrophils % (auto) 69.7 %; Platelet Count 401 K/uL (130-400); RDW Coefficient of Variation 14.8 % (11.5-14.5); RDW Standard Deviation 42.4 fL (36.4-46.3); White Blood Count 9.44 K/ul (4.8-10.8)
[2023-09-03 07:38] LABS: Albumin Level 3.4 gm/dl (3.4-5.0); BUN Creatinine Ratio 14.6 (10-20); Bilirubin Direct 0.1 mg/dl (0-0.2); Bilirubin,Total 0.3 mg/dl (0.2-1.0); C Reactive Protein 4.55 mg/dl (0-0.5); Creatinine Clr Calc Pharmacy 112.5 ml/min; Est GFR (Non-African American) 92.3 ml/min; Potassium 4.1 mmol/L (3.5-5.1); Total Protein 7.4 gm/dl (6.0-8.3)
[2023-09-03 07:57] LABS: Ferritin 136.5 ng/ml (8-388)
[2023-09-03] MEDS: LISINOPRIL/HCTZ 20/12.5MG 1 TAB TAB PO SCH (08:12)
--- NOTE | 2023-09-03 08:35 | Hospitalist Progress Note ---
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 If no anaerobes, then can de-escalate to cefazolin 2 g IV every 8 hours. Follow-up finalization of bone culture and soft tissue culture and pathology from 08/29 Follow-up bone path margins on 08/31. If no residual infection, no anaerobes and no remaining Osteomyelitis, can dc on Amoxicillin 1 g Po q8 hrs ( cr cl >100) for 10 day post amputation. EOT 09/10. If residual osteomyelitis/ positive margins post amputation on 08/31 , he will need a Picc and 6 weeks of Ancef 2g Iv q8 hrs IF only group B strep growth ( in that case EOT 10/12). If snf abx, then weekly cbc with diff, bmp, lft, esr, crp on abx and follow up with local ID and podiatry. Wound Vac to be placed by Wound Care when possible. insurance case manager aware of need for possible IV abx and for wound vac with home health 09/02 WBC 9.4k, hgb 11.9. Plt 449--> 401 ESR >130, CRP 4.55. No prior and will need weekly if on continued IV. Can repeat for Tuesday for comparison prior to dc Continues on Unasyn IV, foot cx final 08/25 with group B beta strep. Preliminary group B beta strep on foot/bone cx from 08/29 and remains on Unasyn for now but see plan if only group B strep growth as above Wound vac to be placed as able, probably not until Tuesday Constipation -- declined any medications for such but has been a while (last BM reported 08/23 prior to admission) Wanting to use own toilet. +BS on exam/passing gas. Continued monitoring and discussed to alert of any pain/lack of flatus. (2) Type 2 diabetes mellitus: Plan: Patient's home regimen held on admission-hold glipizide,metformin, Mounjaro Continue Lantus/Novolog while in hospital Uncontrolled with A1C 11.3% Continue BSG checks, hypoglycemic protocol Diabetes education involved as patient will be discharged on insulin, resume Mounjaro and metformin, but DC glipizide after starting insulin 09/02-added carb ratio to assist w/ improvement in BSG control while inpatient Per DM education: He takes Metformin 1000mg BID at home. Recently started the Mounjaro 2.5mg weekly. First dose was 08/25. So far seems to be tolerating it well. He does have a glucose meter/supplies. He is agreeable to starting the Semglee. Plan upon discharge: 1.) Start Semglee 15 units daily. 2.) Continue Metformin and Mounjaro. 3.) SMBG 2x/day- fasting and evening (before supper or before bed). 4.) Notify provider of BG values > 200 x 3 days or any value < 80. 5.) Regular/balanced meals; increase protein intake to support healing. Recommend sending prescriptions to pharmacy day before discharge in case same has to be ordered. Pt will need the following prescriptions: 1.) Semglee Pen. 2.) Pen Needle 32 gauge x - to inject 1x/day. (3) HTN (hypertension), benign: Plan: Resumed home lisinopril/HCT as renal function stable and BPs acceptable. Continues on home metoprolol. BP 122/62 (4) Peripheral neuropathy: Plan: Patient with peripheral neuropathy on physical exam Most likely secondary to diabetes. Should have outpatient follow-up with PCP B12 w/ AM labs as well however has gotten 5000mcg daily x 2 while inpatient and to be on at baseline/on metformin can check TSH w/ AM labs as well (5) GERD (gastroesophageal reflux disease): Plan: continue PPI (6) Hyperlipidemia: Plan: continue statin (7) Iron deficiency: Plan: Hgb 12-13s in system, 11.9 on AM labs. No bleeding reported but MCV <80 and iron studies checked, ferritin not elevated even w/ infection and suspect actually lower. Iron only 35, trans % sat LOW at 14. Consideration for Venofer in AM Plan Code status: DNR/DNI DVT ppx: Discontinued Lovenox as patient is having nosebleeds, add SCD to left leg Dispo: continued stay on med/surg, dc to home once bone path returned, wound vac in place, and possible home IV antibiotics arranged (if needed)-likely not until Tuesday Admission and Anticipated Discharge Date Admission Date: August 29, 2023 Subjective Evaluated this morning, sitting up at the side of the bed. Denies pain, 2nd to his baseline neuropathy from DM. Passing gas, eating/drinking. Denies abdominal pain but not moving bowels. Prefers his own toilet, offered to see about private room and he reports not to worry and will "let us know when he gets the urge". Encouarged continued ambulation/consideration for regimen but will monitor. To alert of any abdominal pain/lack of flatus but will monitor for now. No fever/chills, no chest pain/shortness of breath. Cx still preliminary, remains on IV abx. Wound vac still to be placed when wound nursing available - was not seen yesterday but consult order in place. Dressing c/d/i, toes mobile but diminished sensation 2nd to neuropathy. Questions/concerns addressed at this time. Physical Exam Constitutional: WD/WN, vitals as above Respiratory: normal respiratory effort, lungs clear to auscultation Cardiovascular: RRR, no murmur, no edema Gastrointestinal (Abdomen): normal bowel sounds, soft, nontender, no hepatosplenomegaly slight distension (continues to deny bowel regimen) Musculoskeletal: right foot in dressing and MOON wrap not removed, toes mobile but sensation diminished at baseline (2nd to neuropathy) Psychiatric: A+Ox3, euthymic affect Results & Data Results & Data Vital Signs (Past 12 Hours) Vital Signs Temp Pulse Resp BP Pulse Ox O2 Del Method 09/03/23 06:55 36.9 C 53 L 16 122/62 95 Room Air Laboratory Results 09/03/23 09/03/23 09/02/23 Range/Units 07:32 05:59 20:29 WBC 9.44 (4.8-10.8) K/ul RBC 4.80 (4.70-6.10) M/uL Hgb 11.9 L (14.0-18.0) g/dl Hct 37.8 L (42.0-52.0) % MCV 78.8 L (80.0-100.0) fL MCH 24.8 L (25.0-34.0) pg MCHC 31.5 L (32.0-36.0) g/dL RDW Std Deviation 42.4 (36.4-46.3) fL RDW Coeff of Mel 14.8 H (11.5-14.5) % Plt Count 401 H (130-400) K/uL MPV 9.9 (9.4-12.4) fL Immature Gran % (Auto) 1.0 % Neut % (Auto) 69.7 % Lymph % (Auto) 18.0 % Stephenson % (Auto) 5.9 % Eos % (Auto) 4.6 % Baso % (Auto) 0.8 % Neut # (Auto) 6.58 H (1.40-6.50) K/uL Lymph # (Auto) 1.70 (1.20-3.40) K/uL Stephenson # (Auto) 0.56 (0.11-0.59) K/uL Eos # (Auto) 0.43 (0.00-0.50) K/uL Baso # (Auto) 0.08 (0.00-0.20) K/uL Immature Gran # (Auto) 0.09 (0.01-0.20) K/uL ESR > 130 H (0-20) mm/hr Sodium 134 L (136-145) mmol/L Potassium 4.1 (3.5-5.1) mmol/L Chloride 102 (98-107) mmol/L Carbon Dioxide 25 (21-32) mmol/L Anion Gap 7 (3-11) BUN 13 (6-23) mg/dl Creatinine 0.89 (0.6-1.4) mg/dl Est Cr Clr Drug Dosing 112.5 ml/min Est GFR ( Amer) 107.0 ml/min Est GFR (Non-Af Amer) 92.3 ml/min BUN/Creatinine Ratio 14.6 (10-20) Glucose 185 H (70-99(Fasting)) mg/dl POC Glucose 181 H 166 H (70-99) mg/dl Calcium 9.0 (8.6-10.3) mg/dl Iron 35 (35-175) mcg/dl TIBC 252 (250-450) mcg/dl Unsaturated IBC 217 (155-355) mcg/dl Transferrin % Sat 14 L (20-50) % Ferritin 136.5 (8-388) ng/ml Total Bilirubin 0.3 (0.2-1.0) mg/dl Direct Bilirubin 0.1 (0-0.2) mg/dl AST 14 (13-39) U/L ALT 14 (7-52) U/L Alkaline Phosphatase 71 (34-104) U/L C-Reactive Protein 4.55 H (0-0.5) mg/dl Total Protein 7.4 (6.0-8.3) gm/dl Albumin 3.4 (3.4-5.0) gm/dl 09/02/23 09/02/23 Range/Units 16:39 11:29 WBC (4.8-10.8) K/ul RBC (4.70-6.10) M/uL Hgb (14.0-18.0) g/dl Hct (42.0-52.0) % MCV (80.0-100.0) fL MCH (25.0-34.0) pg MCHC (32.0-36.0) g/dL RDW Std Deviation (36.4-46.3) fL RDW Coeff of Mel (11.5-14.5) % Plt Count (130-400) K/uL MPV (9.4-12.4) fL Immature Gran % (Auto) % Neut % (Auto) % Lymph % (Auto) % Stephenson % (Auto) % Eos % (Auto) % Baso % (Auto) % Neut # (Auto) (1.40-6.50) K/uL Lymph # (Auto) (1.20-3.40) K/uL Stephenson # (Auto) (0.11-0.59) K/uL Eos # (Auto) (0.00-0.50) K/uL Baso # (Auto) (0.00-0.20) K/uL Immature Gran # (Auto) (0.01-0.20) K/uL ESR (0-20) mm/hr Sodium (136-145) mmol/L Potassium (3.5-5.1) mmol/L Chloride (98-107) mmol/L Carbon Dioxide (21-32) mmol/L Anion Gap (3-11) BUN (6-23) mg/dl Creatinine (0.6-1.4) mg/dl Est Cr Clr Drug Dosing ml/min Est GFR ( Amer) ml/min Est GFR (Non-Af Amer) ml/min BUN/Creatinine Ratio (10-20) Glucose (70-99(Fasting)) mg/dl POC Glucose 139 H 174 H (70-99) mg/dl Calcium (8.6-10.3) mg/dl Iron (35-175) mcg/dl TIBC (250-450) mcg/dl Unsaturated IBC (155-355) mcg/dl Transferrin % Sat (20-50) % Ferritin (8-388) ng/ml Total Bilirubin (0.2-1.0) mg/dl Direct Bilirubin (0-0.2) mg/dl AST (13-39) U/L ALT (7-52) U/L Alkaline Phosphatase (34-104) U/L C-Reactive Protein (0-0.5) mg/dl Total Protein (6.0-8.3) gm/dl Albumin (3.4-5.0) gm/dl PG Care Time/CCT Total # of Minutes Spent Total Time Spent with Patient: Total time spent is greater than 50% in coordination of care (as documented) at patient's floor/unit and/or counseling patient: Coding Level of Care Code 05465 SUB INP/OBS CARE 2/35MIN Diagnoses Diabetic infection of right foot E11.628; L08.9 Type 2 diabetes mellitus E11.9 HTN (hypertension), benign I10 Peripheral neuropathy G62.9 GERD (gastroesophageal reflux disease) K21.9 Hyperlipidemia E78.5 Iron deficiency E61.1
[2023-09-03] MEDS: AMPICILLIN/SULBACTAM SOD 3,000 MG in SODIUM CHLOR 0.9% MINI-B 100 ML IV SCH (22:44)
[2023-09-04 06:48] LABS: Basophils # (auto) 0.09 K/uL (0.00-0.20); Basophils % (auto) 0.8 %; Eosinophils # (auto) 0.43 K/uL (0.00-0.50); Eosinophils % (auto) 3.7 %; Hematocrit (blood only) 39.8 % (42.0-52.0); Hemoglobin 12.4 g/dl (14.0-18.0); Immature Granulocytes # (auto) 0.13 K/uL (0.01-0.20); Immature Granulocytes % (auto) 1.1 %; Lymphocytes # (auto) 2.26 K/uL (1.20-3.40); Lymphocytes % (auto) 19.3 %; Mean Corpuscular Hemoglobin 24.8 pg (25.0-34.0); Mean Corpuscular Hgb Conc 31.2 g/dL (32.0-36.0); Mean Corpuscular Volume 79.6 fL (80.0-100.0); Mean Platelet Volume 9.6 fL (9.4-12.4); Monocytes % (auto) 5.1 %; Neutrophils # (auto) 8.22 K/uL (1.40-6.50); Platelet Count 390 K/uL (130-400); RDW Coefficient of Variation 14.7 % (11.5-14.5); RDW Standard Deviation 42.2 fL (36.4-46.3); White Blood Count 11.73 K/ul (4.8-10.8)
[2023-09-04 07:00] LABS: Albumin Globulin Ratio 0.9 (0.9-2); Albumin Level 3.5 gm/dl (3.4-5.0); BUN Creatinine Ratio 16.3 (10-20); Bilirubin,Total 0.3 mg/dl (0.2-1.0); Creatinine Clr Calc Pharmacy 102.1 ml/min; Est GFR (African American) 96.1 ml/min; Est GFR (Non-African American) 82.9 ml/min; Globulin 4.1 gm/dl (2.5-4.0); Magnesium 1.7 mg/dl (1.7-2.4); Total Protein 7.6 gm/dl (6.0-8.3)
[2023-09-04 07:15] LABS: Thyroid Stimulating Hormone 5.543 uIu/ml (0.300-4.500)
[2023-09-04 07:49] LABS: T4 Free Thyroxine 0.95 ng/dl (0.61-1.60)
--- NOTE | 2023-09-04 08:52 | Hospitalist Progress Note ---
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 If no anaerobes, then can de-escalate to cefazolin 2 g IV every 8 hours. Follow-up finalization of bone culture and soft tissue culture and pathology from 08/29 Follow-up bone path margins on 08/31. If no residual infection, no anaerobes and no remaining Osteomyelitis, can dc on Amoxicillin 1 g Po q8 hrs ( cr cl >100) for 10 day post amputation. EOT 09/10. If residual osteomyelitis/ positive margins post amputation on 08/31 , he will need a Picc and 6 weeks of Ancef 2g Iv q8 hrs IF only group B strep growth ( in that case EOT 10/12). If fdc abx, then weekly cbc with diff, bmp, lft, esr, crp on abx and follow up with local ID and podiatry. Wound Vac to be placed by Wound Care when possible. manager credit risk aware of need for possible IV abx and for wound vac with home health 09/02 WBC 9.4k, hgb 11.9. Plt 449--> 401. ESR >130, CRP 4.55. No prior and will need weekly if on continued IV. Continued on Unasyn IV, foot cx final 08/25 with group B beta strep. Preliminary group B beta strep on foot/bone cx from 08/29 and remains on Unasyn for now but see plan if only group B strep growth as above 09/03 WBC elevation 11.7k, afebrile however notable UNASYN HAD FALLEN OFF MEDICATION LIST, LAST DOSE 09/02 5am was restarted evening 09/02 22:44 (would have missed ~2 doses) ?extend course by additional day. Can touch base w/ ID in AM CX from 08/29 group B strep on preliminary. - Discussed w/ micro and hopefully finalized either this afternoon or by tomorrow at the latest Wound RN to place vac 09/04 hopefully Did have small BM 09/02 CM to follow for possible IV abx but hopefully able to dc on PO if cx w/ just group B beta strep/no residual osteo Monitor labs/exam on repeat, will add ESR/CRP for comparison and will need weekly if needing continued IV abx at dc (2) Type 2 diabetes mellitus: Plan: Patient's home regimen held on admission-hold glipizide,metformin, Mounjaro Continue Lantus/Novolog while in hospital Uncontrolled with A1C 11.3% Continue BSG checks, hypoglycemic protocol Diabetes education involved as patient will be discharged on insulin, resume Mounjaro and metformin, but DC glipizide after starting insulin 09/02-added carb ratio to assist w/ improvement in BSG control while inpatient Per DM education: He takes Metformin 1000mg BID at home. Recently started the Mounjaro 2.5mg weekly. First dose was 08/25. So far seems to be tolerating it well. He does have a glucose meter/supplies. He is agreeable to starting the Semglee. Plan upon discharge: 1.) Start Semglee 15 units daily. 2.) Continue Metformin and Mounjaro. 3.) SMBG 2x/day- fasting and evening (before supper or before bed). 4.) Notify provider of BG values > 200 x 3 days or any value < 80. 5.) Regular/balanced meals; increase protein intake to support healing. Recommend sending prescriptions to pharmacy day before discharge in case same has to be ordered. Pt will need the following prescriptions: 1.) Semglee Pen. 2.) Pen Needle 32 gauge x - to inject 1x/day. TSH checked w/ DM given co-existence/hyponatremia/neuropathy/anemia/chronic constipation (reports not first time not moving bowels in several days however appears to want to use own bathroom). TSH elevated slightly (?reactive w/ infection) but normal T4. Check t3 w/ am for completeness (3) HTN (hypertension), benign: Plan: Resumed home lisinopril/HCT as renal function stable and BPs acceptable. Continues on home metoprolol. (4) Peripheral neuropathy: Plan: Patient with peripheral neuropathy on physical exam Most likely secondary to diabetes. Should have outpatient follow-up with PCP B12 wnl, on supplementation (on metformin) TSH slight elevation, ?reactive. T4 wnl but will check T3 w/ AM labs for completeness (5) GERD (gastroesophageal reflux disease): Plan: continue PPI, no issues reported (6) Hyperlipidemia: Plan: continue statin (7) Iron deficiency: Plan: Hgb 12-13s in system, 11.9 on AM labs. No bleeding reported but MCV <80 and iron studies checked/TSH as above Ferritin not elevated even w/ infection and suspect actually lower, w/ EMMANUEL underlying Iron only 35, trans % sat LOW at 14. Consideration for Venofer in AM Plan Code status: DNR/DNI DVT ppx: Discontinued Lovenox as patient was having nosebleeds, add SCD to left leg Dispo: continued stay on med/surg, cx/bone path pending and hopefully finalized next 24hrs wound vac placement in AM Possible dc on PO abx next 24-48 hrs if no residual osteo and only group B strep on final cultures. CM to follow for possible IV abx and would need PICC if occurs Admission and Anticipated Discharge Date Admission Date: August 29, 2023 Subjective Patient evaluated this morning, resting in bed. No pain. Small bowel movement last evening.Passing gas/no abdominal pain. No fever/chills, chest pain/shortness of breath. Cxs still preliminary, discussed hopefully finalized tomorrow. Discussed Unasyn fell off yesterday morning but then resumed in evening so he did miss afternoon dosing. Wound vac hopeful placement in AM and hopeful dc next 24-48 hrs pending final cultures. Questions/concerns addressed at this time. Physical Exam Constitutional: WD/WN, vitals as above Respiratory: normal respiratory effort, lungs clear to auscultation Cardiovascular: RRR, no murmur, no edema Gastrointestinal (Abdomen): normal bowel sounds, soft, nontender, no hepatosplenomegaly slight distension (slightly better) no guarding/rigidity +BM 09/02 Musculoskeletal: right foot in dressing and MOON wrap not removed (slight shadowing to inferior aspect), toes mobile but sensation diminished at baseline (2nd to neuropathy) Psychiatric: A+Ox3, euthymic affect Results & Data Results & Data Vital Signs (Past 12 Hours) Vital Signs Temp Pulse Resp BP Pulse Ox O2 Del Method 09/04/23 06:52 36.4 C L 63 14 105/67 94 Room Air Laboratory Results 09/04/23 09/04/23 09/03/23 Range/Units 07: 06:01 20:37 WBC 11.73 H (4.8-10.8) K/ul RBC 5.00 (4.70-6.10) M/uL Hgb 12.4 L (14.0-18.0) g/dl Hct 39.8 L (42.0-52.0) % MCV 79.6 L (80.0-100.0) fL MCH 24.8 L (25.0-34.0) pg MCHC 31.2 L (32.0-36.0) g/dL RDW Std Deviation 42.2 (36.4-46.3) fL RDW Coeff of Mel 14.7 H (11.5-14.5) % Plt Count 390 (130-400) K/uL MPV 9.6 (9.4-12.4) fL Immature Gran % (Auto) 1.1 % Neut % (Auto) 70.0 % Lymph % (Auto) 19.3 % Sequoyah % (Auto) 5.1 % Eos % (Auto) 3.7 % Baso % (Auto) 0.8 % Neut # (Auto) 8.22 H (1.40-6.50) K/uL Lymph # (Auto) 2.26 (1.20-3.40) K/uL Sequoyah # (Auto) 0.60 H (0.11-0.59) K/uL Eos # (Auto) 0.43 (0.00-0.50) K/uL Baso # (Auto) 0.09 (0.00-0.20) K/uL Immature Gran # (Auto) 0.13 (0.01-0.20) K/uL Sodium 132 L (136-145) mmol/L Potassium 4.0 (3.5-5.1) mmol/L Chloride 99 (98-107) mmol/L Carbon Dioxide 26 (21-32) mmol/L Anion Gap 7 (3-11) BUN 16 (6-23) mg/dl Creatinine 0.98 (0.6-1.4) mg/dl Est Cr Clr Drug Dosing 102.1 ml/min Est GFR ( Amer) 96.1 ml/min Est GFR (Non-Af Amer) 82.9 ml/min BUN/Creatinine Ratio 16.3 (10-20) Glucose 253 H (70-99(Fasting)) mg/dl POC Glucose 239 H 151 H (70-99) mg/dl Calcium 9.0 (8.6-10.3) mg/dl Magnesium 1.7 (1.7-2.4) mg/dl Total Bilirubin 0.3 (0.2-1.0) mg/dl AST 19 (13-39) U/L ALT 16 (7-52) U/L Alkaline Phosphatase 72 (34-104) U/L Total Protein 7.6 (6.0-8.3) gm/dl Albumin 3.5 (3.4-5.0) gm/dl Globulin 4.1 H (2.5-4.0) gm/dl Albumin/Globulin Ratio 0.9 (0.9-2) Vitamin B12 > 1500 H (180-914) pg/ml TSH 5.543 H (0.300-4.500) uIu/ml Free T4 0.95 (0.61-1.60) ng/dl 09/03/23 09/03/23 Range/Units 16:31 11:29 WBC (4.8-10.8) K/ul RBC (4.70-6.10) M/uL Hgb (14.0-18.0) g/dl Hct (42.0-52.0) % MCV (80.0-100.0) fL MCH (25.0-34.0) pg MCHC (32.0-36.0) g/dL RDW Std Deviation (36.4-46.3) fL RDW Coeff of Mel (11.5-14.5) % Plt Count (130-400) K/uL MPV (9.4-12.4) fL Immature Gran % (Auto) % Neut % (Auto) % Lymph % (Auto) % [place]oyah % (Auto) % Eos % (Auto) % Baso % (Auto) % Neut # (Auto) (1.40-6.50) K/uL Lymph # (Auto) (1.20-3.40) K/uL Sequoyah # (Auto) (0.11-0.59) K/uL Eos # (Auto) (0.00-0.50) K/uL Baso # (Auto) (0.00-0.20) K/uL Immature Gran # (Auto) (0.01-0.20) K/uL Sodium (136-145) mmol/L Potassium (3.5-5.1) mmol/L Chloride (98-107) mmol/L Carbon Dioxide (21-32) mmol/L Anion Gap (3-11) BUN (6-23) mg/dl Creatinine (0.6-1.4) mg/dl Est Cr Clr Drug Dosing ml/min Est GFR ( Amer) ml/min Est GFR (Non-Af Amer) ml/min BUN/Creatinine Ratio (10-20) Glucose (70-99(Fasting)) mg/dl POC Glucose 132 H 190 H (70-99) mg/dl Calcium (8.6-10.3) mg/dl Magnesium (1.7-2.4) mg/dl Total Bilirubin (0.2-1.0) mg/dl AST (13-39) U/L ALT (7-52) U/L Alkaline Phosphatase (34-104) U/L Total Protein (6.0-8.3) gm/dl Albumin (3.4-5.0) gm/dl Globulin (2.5-4.0) gm/dl Albumin/Globulin Ratio (0.9-2) Vitamin B12 (180-914) pg/ml TSH (0.300-4.500) uIu/ml Free T4 (0.61-1.60) ng/dl PG Care Time/CCT Total # of Minutes Spent Total Time Spent with Patient: Total time spent is greater than 50% in coordination of care (as documented) at patient's floor/unit and/or counseling patient: Coding Level of Care Code 21006 SUB INP/OBS CARE 3/50MIN Diagnoses Diabetic infection of right foot E11.628; L08.9 Type 2 diabetes mellitus E11.9 HTN (hypertension), benign I10 Peripheral neuropathy G62.9 GERD (gastroesophageal reflux disease) K21.9 Hyperlipidemia E78.5 Iron deficiency E61.1
[2023-09-04] MEDS: ceFAZolin 2000MG 2,000 MG/15 ML SYR IV SCH (17:59)
[2023-09-05 06:27] LABS: Basophils # (auto) 0.08 K/uL (0.00-0.20); Basophils % (auto) 0.8 %; Eosinophils # (auto) 0.35 K/uL (0.00-0.50); Eosinophils % (auto) 3.4 %; Hematocrit (blood only) 40.8 % (42.0-52.0); Hemoglobin 12.7 g/dl (14.0-18.0); Immature Granulocytes # (auto) 0.08 K/uL (0.01-0.20); Immature Granulocytes % (auto) 0.8 %; Lymphocytes % (auto) 20.4 %; Mean Corpuscular Hgb Conc 31.1 g/dL (32.0-36.0); Mean Corpuscular Volume 80.3 fL (80.0-100.0); Mean Platelet Volume 9.6 fL (9.4-12.4); Monocytes # (auto) 0.55 K/uL (0.11-0.59); Monocytes % (auto) 5.4 %; Neutrophils # (auto) 7.11 K/uL (1.40-6.50); Neutrophils % (auto) 69.2 %; Platelet Count 398 K/uL (130-400); RDW Coefficient of Variation 14.6 % (11.5-14.5); RDW Standard Deviation 42.5 fL (36.4-46.3); Red Blood Count 5.08 M/uL (4.70-6.10); White Blood Count 10.27 K/ul (4.8-10.8)
[2023-09-05 06:40] LABS: Albumin Globulin Ratio 0.9 (0.9-2); Albumin Level 3.5 gm/dl (3.4-5.0); BUN Creatinine Ratio 15.3 (10-20); Bilirubin,Total 0.3 mg/dl (0.2-1.0); C Reactive Protein 2.18 mg/dl (0-0.5); Creatinine Clr Calc Pharmacy 90.2 ml/min; Est GFR (African American) 82.6 ml/min; Est GFR (Non-African American) 71.3 ml/min; Globulin 4.1 gm/dl (2.5-4.0); Magnesium 1.7 mg/dl (1.7-2.4); Potassium 4.2 mmol/L (3.5-5.1); Total Protein 7.6 gm/dl (6.0-8.3)
--- NOTE | 2023-09-05 08:33 | Hospitalist Progress Note ---
Date of Service September 05, 2023 Assessment & Plan (1) Diabetic infection of right foot: Plan: Patient with abscess and surrounding cellulitis of the right foot, had I&D on 08/28 and found to have OM of 5th MT head as well as abscess and infection 5th digit Podiatry feels 5th met involvement and went on to have a 2nd surgery 08/31 for amputation Blood cultures NGTD Wound cultures and bone culture all growing group B strep thus far, not yet finalized ID consult appreciated--> Continue Unasyn 3 g IV every 6 hours. If no anaerobes, then can de-escalate to cefazolin 2 g IV every 8 hours. Follow-up finalization of bone culture and soft tissue culture and pathology from 08/29 Follow-up bone path margins on 08/31. If no residual infection, no anaerobes and no remaining Osteomyelitis, can dc on Amoxicillin 1 g Po q8 hrs ( cr cl >100) for 10 day post amputation. EOT 09/10. If residual osteomyelitis/ positive margins post amputation on 08/31 , he will need a Picc and 6 weeks of Ancef 2g Iv q8 hrs IF only group B strep growth ( in that case EOT 10/12). 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 ESR >130, CRP 4.55 Wound Vac to be placed by Wound Care when possible. integrated campaign manager aware of need for possible IV abx and for wound vac with home health Continued on Unasyn IV, foot cx final 08/25 with group B beta strep. Preliminary group B beta strep on foot/bone cx from 08/29 and remains on Unasyn for now but see plan if only group B strep growth as above 09/04 Notable did have 2 missed doses of Unasyn 09/02 (last dose 5am 09/02, resumed 22:44). OR CXs FINALIZED with Group B Beta Strep last evening and Unasyn switched to Ancef 2gm IV q8h for now WBC wnl on labs and continues on Ancef IV - discussed w/ ID and can extend course by 1 day given missed doses (EOT if able to go on PO abx 09/11 rather than 09/10). CRP/ESR trending down on repeat Bone path pending, likely not back until at least this evening per discussion w/ provider this morning If negative for osteo, plan Amox 1gm Q8H x 10 days post amputation (extended 1 day for missed Unasyn dosing, EOT 09/11) Did have LARGE BM Discussed w/ podiatry, can remove retention sutures, wound vac going on today Arterial duplex w/ ABIs as already discussed w/ wound RN/podiatry and were to be obtained following surgery but not yet done. Ordered for today. ?vascular consult pending report if needed vs outpt f/u CM to follow for possible dc in AM if needing ongoing IV abx will need PICC line Updated daughter at bedside regarding plan (2) Type 2 diabetes mellitus: Plan: Patient's home regimen held on admission-hold glipizide,metformin, Mounjaro Continue Lantus/Novolog while in hospital Uncontrolled with A1C 11.3% Continue BSG checks, hypoglycemic protocol Diabetes education involved as patient will be discharged on insulin, resume Mounjaro and metformin, but DC glipizide after starting insulin Per DM education: He takes Metformin 1000mg BID at home. Recently started the Mounjaro 2.5mg weekly. First dose was 08/25. So far seems to be tolerating it well. He does have a glucose meter/supplies. He is agreeable to starting the Semglee. Plan upon discharge: 1.) Start Semglee 15 units daily. 2.) Continue Metformin and Mounjaro. 3.) SMBG 2x/day- fasting and evening (before supper or before bed). 4.) Notify provider of BG values > 200 x 3 days or any value < 80. 5.) Regular/balanced meals; increase protein intake to support healing. Recommend sending prescriptions to pharmacy day before discharge in case same has to be ordered. Pt will need the following prescriptions: 1.) Semglee Pen. 2.) Pen Needle 32 gauge x - to inject 1x/day. TSH checked w/ DM given co-existence/hyponatremia/neuropathy/anemia/chronic constipation (reports not first time not moving bowels in several days however appears to want to use own bathroom). TSH elevated slightly (?reactive w/ infection) but normal T4/T3 Rec'd continued routine foot exams/better blood sugar control for wound healing and compliance in follow up (3) HTN (hypertension), benign: Plan: Resumed home lisinopril/HCT as renal function stable and BPs acceptable. Continues on home metoprolol. (4) Peripheral neuropathy: Plan: Patient with peripheral neuropathy on physical exam Most likely secondary to diabetes. Should have outpatient follow-up with PCP B12 wnl, on supplementation (on metformin) TSH slight elevation, ?reactive w/ infection. T4/T3 wnl (5) GERD (gastroesophageal reflux disease): Plan: continue PPI, no issues reported (6) Hyperlipidemia: Plan: continue statin (7) Iron deficiency: Plan: Hgb 12-13s in system, 12.7 on AM labs. No bleeding reported but MCV <80 and iron studies checked/TSH as above Ferritin not elevated even w/ infection and suspect actually lower, w/ EMMANUEL underlying Iron only 35, trans % sat LOW at 14. Consideration for Venofer in AM. If not already had c-scope for screening should be done in f/u PCP once current issues resolved Plan Code status: DNR/DNI DVT ppx: Discontinued Lovenox as patient was having nosebleeds, add SCD to left leg Dispo: continued stay on med/surg on Ancef IV Arterial duplex/ABIs pending Wound vac being placed today, CM to follow Hopeful if bone path negative for osteo can d/c in AM on Amoxicillin to complete course, otherwise will need PICC line Admission and Anticipated Discharge Date Admission Date: August 29, 2023 Subjective Patient evaluated this morning, daughter in room. Wound RN removed dressing, packing material, and plans for wound vac. Discussed changed abx based on cultures but still awaiting pathology and abx route and duration depending on finalized. Wound RN inquiring about doppler/ABIs as podiatry reporting would order after surgery -- message to Dr Trujillo regarding such as well as WB status to ensure not needing to be heel weight bearing to prevent putting weight on front of foot. Has been using surgical shoe to ambulate to the bathroom. Large BM No CP/SOB. Anticipating discharge for tomorrow once plan finalized. Updated daughter on plan in room. Discussed/rec podiatry follow up for routine DM foot exams but at MINIMUM would need to self monitor given his underlying neuropathy which as discussed likely from his uncontrolled DM. Will be getting arterial duplex/abis. Pending report may/may not need vasc consult? Questions/concerns addressed at this time. Physical Exam Constitutional: WD/WN, vitals as above Respiratory: normal respiratory effort, lungs clear to auscultation Cardiovascular: RRR, no murmur, no edema Gastrointestinal (Abdomen): normal bowel sounds, soft, nontender, no hepatosplenomegaly Musculoskeletal: right foot in dressing -- s/p 5ht ray resection dressing removed by wound nurse this morning, no active bleeding sutures x [address] with dressing breakdown, packing removed wound RN to place wound vac this morning baseline neuropathy/decreased sensation to light touch but able to feel pressure Psychiatric: A+Ox3, euthymic affect Results & Data Results & Data Vital Signs (Past 12 Hours) Vital Signs Temp Pulse Pulse Resp BP Pulse Ox O2 Del Method 09/05/23 07:41 36.8 C 62 18 134/74 95 Room Air 09/04/23 20:55 37.0 C 59 L 17 139/77 95 Room Air Laboratory Results 09/05/23 09/05/23 09/05/23 Range/Units 11:26 07:22 05:54 WBC 10.27 (4.8-10.8) K/ul RBC 5.08 (4.70-6.10) M/uL Hgb 12.7 L (14.0-18.0) g/dl Hct 40.8 L (42.0-52.0) % MCV 80.3 (80.0-100.0) fL MCH 25.0 (25.0-34.0) pg MCHC 31.1 L (32.0-36.0) g/dL RDW Std Deviation 42.5 (36.4-46.3) fL RDW Coeff of Mel 14.6 H (11.5-14.5) % Plt Count 398 (130-400) K/uL MPV 9.6 (9.4-12.4) fL Immature Gran % (Auto) 0.8 % Neut % (Auto) 69.2 % Lymph % (Auto) 20.4 % Lamar % (Auto) 5.4 % Eos % (Auto) 3.4 % Baso % (Auto) 0.8 % Neut # (Auto) 7.11 H (1.40-6.50) K/uL Lymph # (Auto) 2.10 (1.20-3.40) K/uL Lamar # (Auto) 0.55 (0.11-0.59) K/uL Eos # (Auto) 0.35 (0.00-0.50) K/uL Baso # (Auto) 0.08 (0.00-0.20) K/uL Immature Gran # (Auto) 0.08 (0.01-0.20) K/uL ESR 97 H (0-20) mm/hr Sodium 134 L (136-145) mmol/L Potassium 4.2 (3.5-5.1) mmol/L Chloride 99 (98-107) mmol/L Carbon Dioxide 28 (21-32) mmol/L Anion Gap 7 (3-11) BUN 17 (6-23) mg/dl Creatinine 1.11 (0.6-1.4) mg/dl Est Cr Clr Drug Dosing 90.2 ml/min Est GFR ( Amer) 82.6 ml/min Est GFR (Non-Af Amer) 71.3 ml/min BUN/Creatinine Ratio 15.3 (10-20) Glucose 171 H (70-99(Fasting)) mg/dl POC Glucose 184 H 184 H (70-99) mg/dl Calcium 9.0 (8.6-10.3) mg/dl Magnesium 1.7 (1.7-2.4) mg/dl Total Bilirubin 0.3 (0.2-1.0) mg/dl AST 22 (13-39) U/L ALT 17 (7-52) U/L Alkaline Phosphatase 73 (34-104) U/L C-Reactive Protein 2.18 H (0-0.5) mg/dl Total Protein 7.6 (6.0-8.3) gm/dl Albumin 3.5 (3.4-5.0) gm/dl Globulin 4.1 H (2.5-4.0) gm/dl Albumin/Globulin Ratio 0.9 (0.9-2) Free T3 2.85 (2.3-4.2) pg/ml 09/04/23 09/04/23 Range/Units 20:53 16:37 WBC (4.8-10.8) K/ul RBC (4.70-6.10) M/uL Hgb (14.0-18.0) g/dl Hct (42.0-52.0) % MCV (80.0-100.0) fL MCH (25.0-34.0) pg MCHC (32.0-36.0) g/dL RDW Std Deviation (36.4-46.3) fL RDW Coeff of Mel (11.5-14.5) % Plt Count (130-400) K/uL MPV (9.4-12.4) fL Immature Gran % (Auto) % Neut % (Auto) % Lymph % (Auto) % Lamar % (Auto) % Eos % (Auto) % Baso % (Auto) % Neut # (Auto) (1.40-6.50) K/uL Lymph # (Auto) (1.20-3.40) K/uL Lamar # (Auto) (0.11-0.59) K/uL Eos # (Auto) (0.00-0.50) K/uL Baso # (Auto) (0.00-0.20) K/uL Immature Gran # (Auto) (0.01-0.20) K/uL ESR (0-20) mm/hr Sodium (136-145) mmol/L Potassium (3.5-5.1) mmol/L Chloride (98-107) mmol/L Carbon Dioxide (21-32) mmol/L Anion Gap (3-11) BUN (6-23) mg/dl Creatinine (0.6-1.4) mg/dl Est Cr Clr Drug Dosing ml/min Est GFR ( Amer) ml/min Est GFR (Non-Af Amer) ml/min BUN/Creatinine Ratio (10-20) Glucose (70-99(Fasting)) mg/dl POC Glucose 161 H 171 H (70-99) mg/dl Calcium (8.6-10.3) mg/dl Magnesium (1.7-2.4) mg/dl Total Bilirubin (0.2-1.0) mg/dl AST (13-39) U/L ALT (7-52) U/L Alkaline Phosphatase (34-104) U/L C-Reactive Protein (0-0.5) mg/dl Total Protein (6.0-8.3) gm/dl Albumin (3.4-5.0) gm/dl Globulin (2.5-4.0) gm/dl Albumin/Globulin Ratio (0.9-2) Free T3 (2.3-4.2) pg/ml PG Care Time/CCT Total # of Minutes Spent Total Time Spent with Patient: Total time spent is greater than 50% in coordination of care (as documented) at patient's floor/unit and/or counseling patient: Coding Level of Care Code 00181 SUB INP/OBS CARE 3/50MIN Diagnoses Diabetic infection of right foot E11.628; L08.9 Type 2 diabetes mellitus E11.9 HTN (hypertension), benign I10 Peripheral neuropathy G62.9 GERD (gastroesophageal reflux disease) K21.9 Hyperlipidemia E78.5 Iron deficiency E61.1
--- NOTE | 2023-09-05 14:32 | Ultrasound Report ---
US arterial duplex LE BI HISTORY: 62 years-old Male DM foot infection/osteo, please obtain ABIs peripheral arterial disease COMPARISON: Right foot CT 08/26/2023 TECHNIQUE: Segmental pressures were obtained in addition to lower family arterial Doppler of the lowe r legs FINDINGS: Right-sided KRISTINE of 1.08, left-sided KRISTINE of 0.99. Predominantly triphasic waveforms noted bilaterally. No arterial occlusion or significantly elevated peak systolic velocities to suggest high-grade stenosis. IMPRESSION: 1. Normal ABIs. 2. No arterial occlusion or evidence of hemodynamically significant stenosis. ACT 112: Negative or not required by law. The above report was generated using voice recognition software. It may contain grammatical, syntax o r spelling errors. Electronically signed by: Jose Jimenes M.D. 09/05/2023 2:30 PM
--- NOTE | 2023-09-06 17:17 | Hospitalist Progress Note ---
Date of Service September 06, 2023 Assessment & Plan (1) Diabetic infection of right foot: Plan: Patient with abscess and surrounding cellulitis of the right foot, had I&D and bone biopsy right phalanx on 08/28 and found to have OM of 5th MT head as well as abscess and infection 5th digit Podiatry felt 5th MT involvement and went on to have a 2nd surgery 08/31 for amputation of the fifth ray Bilateral arterial Dopplers of the lower extremities and ABIs are normal Blood cultures NGTD Wound cultures and bone culture all growing group B strep ID consult appreciated--> was on Unasyn and then de-escalated to cefazolin 2 g IV every 8 hours. Bone path margins from 08/31 show osteomyelitis of the metatarsal head but no mention of the proximal metatarsal-will confirm presence of osteomyelitis with pathology. If no residual infection of the bone, can dc on Amoxicillin 1 g Po q8 hrs ( cr cl >100) for 10 day post amputation. EOT 09/11. If residual osteomyelitis/ positive margins post amputation on 08/31 , he will need a Picc and 6 weeks of Ancef 2g Iv q8 hrs EOT 10/12 If penitentiary abx, then weekly cbc with diff, bmp, lft, esr, crp on abx and follow up with local ID and podiatry. Wound Vac has been placed-Home health will manage wound VAC dressing changes (2) Type 2 diabetes mellitus: Plan: Patient's home regimen held on admission-hold glipizide,metformin, Mounjaro Continue Lantus/Novolog while in hospital Uncontrolled with hyperglycemia with A1C 11.3% Continue BSG checks, hypoglycemic protocol Diabetes education involved as patient will be discharged on insulin, resume Mounjaro and metformin, but DC glipizide after starting insulin Per DM education: He takes Metformin 1000mg BID at home. Recently started the Mounjaro 2.5mg lulu negron. First dose was 08/25. So far seems to be tolerating it well. He does have a glucose meter/supplies. He is agreeable to starting the Semglee. Plan upon discharge: 1.) Start Semglee 15 units daily. 2.) Continue Metformin and Mounjaro. 3.) SMBG 2x/day- fasting and evening (before supper or before bed). 4.) Notify provider of BG values > 200 x 3 days or any value < 80. 5.) Regular/balanced meals; increase protein intake to support healing. Recommend sending prescriptions to pharmacy day before discharge in case same has to be ordered. Pt will need the following prescriptions: 1.) Semglee Pen. 2.) Pen Needle 32 gauge x - to inject 1x/day. (3) HTN (hypertension), benign: Plan: Blood pressures are controlled Continue home lisinopril/HCT and metoprolol. (4) Peripheral neuropathy: Plan: Patient with peripheral neuropathy on physical exam Most likely secondary to diabetes. Should have outpatient follow-up with PCP B12 wnl (5) GERD (gastroesophageal reflux disease): Plan: continue PPI, no issues reported (6) Hyperlipidemia: Plan: continue statin (7) Iron deficiency: Plan: Hgb 12-13s with microcytic anemia No overt bleeding. B12 and TSH are normal Ferritin not elevated even w/ infection and suspect actually lower, w/ EMMANUEL under lying Serum iron 35, transferrin sat low at 14% Should start oral iron after discharge as he has been constipated here so will not start now Follow-up with PCP for GI evaluation for iron deficiency anemia to include EGD and colonoscopy Plan DVT ppx: Discontinued Lovenox as patient was having nosebleeds, add SCD to left leg Dispo: continued stay on med/surg and may need to make arrangements for IV antibiotics Discussed care with podiatry and infectious disease on 09/05 Admission and Anticipated Discharge Date Admission Date: August 29, 2023 Subjective Patient has no complaints. No pain in the foot. No chest pain or shortness of breath. He is moving his bowels. He is eating. He is anxious to go home. Physical Exam Constitutional: WD/WN, vitals as above Respiratory: normal respiratory effort, lungs clear to auscultation Cardiovascular: RRR, no murmur, no edema Gastrointestinal (Abdomen): normal bowel sounds, soft, nontender, no hepatosplenomegaly Musculoskeletal: Extremities: + extremities abnormal to inspection (Right lateral foot with wound VAC in place, mild erythema dorsal foot) Psychiatric: A+Ox3, euthymic affect Results & Data Results & Data Vital Signs (Past 12 Hours) Vital Signs Temp Pulse Resp BP Pulse Ox O2 Del Method 09/06/23 14:38 36.9 C 60 16 105/65 97 Room Air 09/06/23 08:30 63 09/06/23 07:47 36.6 C 57 L 18 131/81 96 Room Air PG Care Time/CCT Total # of Minutes Spent Total Time Spent with Patient: Total time spent is greater than 50% in coordination of care (as documented) at patient's floor/unit and/or counseling patient: Coding Level of Care Code 10583 SUB INP/OBS CARE 2/35MIN Diagnoses Diabetic infection of right foot E11.628; L08.9 Type 2 diabetes mellitus E11.9 HTN (hypertension), benign I10 Peripheral neuropathy G62.9 GERD (gastroesophageal reflux disease) K21.9 Hyperlipidemia E78.5 Iron deficiency E61.1
--- NOTE | 2023-09-06 22:27 | Podiatry Progress Note ---
Date of Service September 06, 2023 Assessment & Plan (1) Diabetic infection of right foot: (2) Cellulitis: (3) Osteomyelitis of foot, right, acute: Plan Patient was examined and evaluated. POD #4 s/p right foot fifth ray resection - Discussed at length options with patient and with Dr. Blue - Should continue with IV antibiotics for now and likely home on oral antibiotics, when cleared with other specialties. - We'll likely benefit long-term from wound VAC placement. Wound care has been consulted for this. - D/C home on abx recs from ID. - Will continue to follow outpatient after discharge. Admission and Anticipated Discharge Date Admission Date: August 29, 2023 Subjective Pt seen at bedside at lunch. Eating well. No nausea/vomiting/fevers/chills. Anxious to get home. Has wound vac intact. Pending bone biopsy results. Review of Systems Constitutional: no fever, no chills and no fatigue Eyes: no problem reported Ear, Nose, Mouth, Throat: no problem reported Respiratory: no problem reported Cardiovascular: + edema; no problem reported Gastrointestinal: no nausea, no vomiting and no problem reported Musculoskeletal: no problem reported Integumentary: + skin ulcer, + wounds and + erythema Neurologic: + loss of sensation, + numbness and + pa resthesia; no generalized weakness Psychiatric: no problem reported Physical Exam Physical Exam: Right foot lower extremity focused exam: DP/PT pulses palpable. Advance trophic changes noted throughout the foot with dystrophic toenails, thinning of the ski n, nonpitting edema, and this nonhealing ulcer to the bottom of the right forefoot. Wound vac left intact today, though the ulceration and surgical site remains open. All nonviable bone was able to be resected, though the infection did extend through the soft tissue plantarly along the intrinsic tendons of the plantar aspect of the foot.. Drainage was still noted, though this did not extend to the bone on surgical exam. Constitutional: WD/WN, vitals as above + ill appearing and + obese Eyes: PERRL, conjunctivae normal, anicteric sclerae ENMT: external ear and nose normal, oropharynx normal Neck: trachea midline, no thyromegaly normal visual inspection Respiratory: normal respiratory effort; no respiratory distress Cardiovascular: Rate/Rhythm: regular rate and regular rhythm Vessels: + posterior tibial pulses abnormal and + dorsalis pedis pulses abnormal Chest (Breasts): Chest: normal inspection of chest Gastrointestinal (Abdomen): Inspection/Auscultation: abdomen normal to inspection Percussion/Palpation: + abdomen tender and abdomen soft Musculoskeletal: no cyanosis or clubbing, extremities motor strength 5/5 Head/Neck/Chest: normocephalic and head atraumatic Extremities: extremities normal to inspection Neurologic: awake; + abnormal touch/pain/proprioception, + abnormal sensation to monofilament and no focal motor deficits Psychiatric: A+Ox3, euthymic affect Results & Data Results & Data Vital Signs (Past 12 Hours) Vital Signs Temp Pulse Resp BP Pulse Ox O2 Del Method 09/06/23 21:00 36.9 C 62 18 146/83 H 94 Room Air 09/06/23 14:38 36.9 C 60 16 105/65 97 Room Air (2) Cellulitis Laterality: right Site of cellulitis: extremity Site of cellulitis of extremity: lower extremity Qualified Code(s): L03.115 - Cellulitis of right lower limb
[2023-09-07 07:06] LABS: Eosinophils # (auto) 0.29 K/uL (0.00-0.50); Eosinophils % (auto) 2.9 %; Hematocrit (blood only) 41.7 % (42.0-52.0); Immature Granulocytes # (auto) 0.06 K/uL (0.01-0.20); Immature Granulocytes % (auto) 0.6 %; Lymphocytes % (auto) 22.7 %; Mean Corpuscular Hemoglobin 24.9 pg (25.0-34.0); Mean Corpuscular Hgb Conc 31.2 g/dL (32.0-36.0); Mean Corpuscular Volume 79.7 fL (80.0-100.0); Mean Platelet Volume 9.7 fL (9.4-12.4); Monocytes # (auto) 0.65 K/uL (0.11-0.59); Monocytes % (auto) 6.4 %; Neutrophils # (auto) 6.73 K/uL (1.40-6.50); Neutrophils % (auto) 66.4 %; Platelet Count 393 K/uL (130-400); RDW Coefficient of Variation 14.6 % (11.5-14.5); RDW Standard Deviation 42.4 fL (36.4-46.3); Red Blood Count 5.23 M/uL (4.70-6.10); White Blood Count 10.13 K/ul (4.8-10.8)
[2023-09-07 08:04] LABS: Albumin Level 3.7 gm/dl (3.4-5.0); Bilirubin,Total 0.4 mg/dl (0.2-1.0); Calcium 9.1 mg/dl (8.6-10.3); Magnesium 1.7 mg/dl (1.7-2.4); Potassium 4.3 mmol/L (3.5-5.1)
[2023-09-07 08:10] LABS: Albumin Globulin Ratio 0.9 (0.9-2); BUN Creatinine Ratio 17.2 (10-20); C Reactive Protein 1.3 mg/dl (0-0.5); Creatinine Clr Calc Pharmacy 86.3 ml/min; Est GFR (African American) 78.3 ml/min; Est GFR (Non-African American) 67.6 ml/min; Globulin 3.9 gm/dl (2.5-4.0); Total Protein 7.6 gm/dl (6.0-8.3)
--- NOTE | 2023-09-07 10:36 | Infectious Disease Progress Nt ---
Date of Service September 07, 2023 Assessment & Plan (1) Osteomyelitis of foot, right, acute: (2) Diabetes: (3) Cellulitis: Plan This is a 62-year-old man with a past medical history of DM2, diabetic peripheral neuropathy who presents with a right foot woundongoing for several weeks. About a week ago, he noted some bloody discharge when he was getting in the shower. He subsequently developed foot erythema that tracked up to his ankle and foot swelling. He denied fever, chills, sweats, nausea, vomiting, shortness of breath, cough. Wound is not painful. He reports decreased sensation of the bilateral feet. On admission he is afebrile. Heart rate 112, RR 15, BP 151/74. O2 sats 95% on room air. Labs: WBC 22.45-->14.8 , hemoglobin 12.1, hematocrit 37.3, BUN 23, creatinine 0.91 lactate 1.6, procalcitonin 1.04. Right foot x-ray showed soft tissue swelling without evidence of underlying bone abnormality. CT foot showed lateral and plantar soft tissue swelling at the distal aspect of the fifth metatarsal consistent with cellulitis; Focal cutaneous thickening, irregularity gas and enhancement at the level of the plantar of the distal fifth metatarsal C/W phlegmon and possible small superficial ruptured abscess. No underlying changes to indicate osteomyelitis. He received a dose of vancomycin and cefepime. He is currently on Unasyn. He was evaluated by podiatry and underwent right foot incision and drainage with bone biopsy on 08/29. He was found to have extensive undermining of the plantar wound that led to a pinpoint dorsal wound. This extended directly through the fourth interspace with another ulceration noted to the lateral aspect of the right foot. This combined tunneling and undermining system led to extensive necrosis surrounding the fifth metatarsal and tissue loss extending to the fifth toe: No proximal tracking noted along the long, extrinsic tendons of the foot. Clinically, there was evidence of softening of the fifth metatarsal head. The fifth metatarsal bone was sent for culture and pathology. Soft tissue also sent for culture. Superficial wound culture obtained on 08/25 growing group B Streptococcus. Intraoperative cultures from 08/29 growing group B Streptococcus from the bone culture as well as soft tissue cultures so far. He underwent Right Foot Fifth Ray Resection on 08/31.Per brief Op note, bone biopsy sent for pathology. ID consulted for duration of antibiotics once source control achieved. On evaluation, he feels well pos OR. He denies RLE pain. Erythema improved. Micro: Blood cultures 08/25 NGTD Wound culture 08/25 group B strep (ramirez S, including penicillin) Bone culture 08/29 rare GPC, group B strep (ramirez S, including penicillin) Soft tissue/OR culture 08/29, few GPC, rare group B strep (ramirez S, including penicillin Pathology 08/29 R 5th Metatarsal Bone, right fifth metatarsal bone, biopsy: - Prominent acute osteomyelitis 08/31 R 5th ray Foot, right, "right foot fifth ray resection" (right foot fifth ray resection): - Microscopy of the section of bone from the metatarsal head reveals focal acute osteomyelitis. - The section of bone examined from the proximal phalangeal bone also reveals focal acute osteomyelitis on microscopy. - A sample of the skin and subcutaneous tissue reveals an ulcer with fibrinopurulent exudate and underlying gangrenous soft tissue. Antibiotics: Vancomycin 08/25 - 08/26 Cefepime 08/25 Unasyn Ancef 09/02- ongoing # Right foot diabetic ulcer with cellulitis and abscess - s/p I&D 08/29: Culture GBS, so far Extensive soft tissue/wound tunneling noted in OR # Right fifth metatarsal osteomyelitis Bone culture 08/29+ group B strep S/p right fifth ray amputation 08/31, BONE PATH with acute osteo ( BUT of removed bone and not remaining margins) Addendum pending # Poorly controlled DM2 with peripheral neuropathy -Hemoglobin A1c 11.3 # Sepsis, resolved Leukocytosis, tachycardia ESR > 130 ---> 97 WBC 10.13 Recommendations: -Continue Ancef 2 g IV q8 hrs ( crcl ~ 86) . Pathology from removed bone on 08/31 shows acute osteo. AN addendum is pending for pathology of margins of remaining bone. Per podiatry, they feel that healthy bone remains. -Follow-up ADDENDUM on bone path margins of remaining bone from 08/31. If no residual infection, he can likely complete a short course of pathogen directed oral antibiotics post OR date. If residual infection he will likely need a 6- week course of pathogen directed IV antibiotics from OR date. If No remaining Osteomyelitis, can dc on Amoxicillin 1 g Po q8 hrs ( cr cl >100) for 10 day post amputation. EOT 09/10. If residual osteomyelitis/ positive margins post amputation on 08/31 , he will need a Picc and 6 weeks of Ancef 2g Iv q8 hrs IF only group B strep growth ( in that case EOt 10/12). If mcc abx, then weekly cbc with diff, bmp, lft, esr, crp on abx and follow up with local ID and podiatry. Discussed with hospitalist. Per pathology, an ADDENDUM is pending on margins. Patient is anxious for discharge and final path Addendum may take an additional 48 hours before completed. Hospitalist will d/w patient that if discharged prior to finalization of pathology w/o IV abx and margins are positive for osteo, he will need to return to hospital for set up for IV abx. IF he leaves with picc and IV abx and margins noted to be free of infection, then Picc line will need to be removed and IV abx stopped and therapy completed with PO abx as per above. ID Connect sign off. Please call [phone] with questions. Divina Raymond MD, MPH Infectious Disease [facility], ID Division Admission and Anticipated Discharge Date Admission Date: August 29, 2023 Subjective This patient recommendation is based on a telemedicine consult request which was completed asynchronously through chart review and information provided by the primary physician. The patient was not seen or examined today. The evaluation is consultative in nature and all patient care and treatment decisions can either be accepted or rejected by the patient's primary hospital-based treating physician using their own independent medical judgment for their patient. Time Spent Reviewing Chart: 11 - 20 minutes Bone path from removed bone finalized yesterday with osteo but bone path from remaining bone margins not available. WBc 10.13, cr 1.16 Results & Data Vital Signs (Past 12 Hours) Vital Signs Temp Pulse Pulse Resp BP BP Pulse Ox 09/07/23 07:28 36.6 C 57 L 15 114/64 94 09/07/23 07:04 36.8 C 50 L 18 124/66 98 O2 Del Method 09/07/23 07:28 Room Air 09/07/23 07:04 Room Air Laboratory Results Short CBC 09/07/23 Range/Units 06:24 WBC 10.13 (4.8-10.8) K/ul Hgb 13.0 L (14.0-18.0) g/dl Hct 41.7 L (42.0-52.0) % Plt Count 393 (130-400) K/uL BMP 09/07/23 06:24 Sodium 132 L Potassium 4.3 Chloride 97 L Carbon Dioxide 29 BUN 20 Creatinine 1.16 Glucose 178 H Calcium 9.1 Liver Function 09/07/23 Range/Units 06:24 Total Bilirubin 0.4 (0.2-1.0) mg/dl AST 22 (13-39) U/L ALT 10 (7-52) U/L Alkaline Phosphatase 75 (34-104) U/L Albumin 3.7 (3.4-5.0) gm/dl Diagnostic Findings Microbiology 08/30/23 Unknown Bone Gram Stain - Final 08/30/23 Unknown Bone Aerobic and Anaerobic Culture - Final Group B Beta Strep 08/30/23 Unknown Foot,Right Gram Stain - Final 08/30/23 Unknown Foot,Right Aerobic and Anaerobic Culture - Final Group B Beta Strep 08/26/23 16:10 Blood Aerobic Blood Culture - Final No growth in Aerobic bottle after 5 days. 08/26/23 16:10 Blood Anaerobic Blood Culture - Final No growth in Anaerobic bottle after 5 days. 08/26/23 18:08 Blood Aerobic Blood Culture - Final No growth in Aerobic bottle after 5 days. 08/26/23 18:08 Blood Anaerobic Blood Culture - Final No growth in Anaerobic bottle after 5 days. 08/26/23 18:22 Foot,Right Gram Stain - Final 08/26/23 18:22 Foot,Right Aerobic and Anaerobic Culture - Final Group B Beta Strep Medications Administered Home Medications Medication Instructions Recorded Confirmed Last Taken None (Patient States No Home Meds) ##0 11/20/09 Unknown atorvastatin 20 mg tablet 20 mg PO HS 08/30/23 08/30/23 Unknown blood sugar diagnostic (OneTouch 08/30/23 08/30/23 Unknown Verio test strips) cyanocobalamin (vitamin B-12) 5,000 mcg sublingual DAILY 08/30/23 08/30/23 Unknown 2,500 mcg sublingual tablet (Vitamin B-12) gemfibrozil 600 mg tablet 600 mg PO BID 08/30/23 08/30/23 Unknown glipizide 10 mg tablet, extended 10 mg PO BID 08/30/23 08/30/23 Unknown release 24 hr lisinopril 20 1 tab PO DAILY 08/30/23 08/30/23 Unknown mg-hydrochlorothiazide 12.5 mg tablet metformin 1,000 mg tablet 1,000 mg PO BID 08/30/23 08/30/23 Unknown metoprolol tartrate 25 mg tablet 25 mg PO BID 08/30/23 08/30/23 Unknown omeprazole 40 mg capsule,delayed 40 mg PO DAILY 08/30/23 08/30/23 Unknown release tirzepatide 2.5 mg/0.5 mL 2.5 mg subcut WK 08/30/23 08/30/23 Unknown subcutaneous pen injector (Mounjaro) tirzepatide 2.5 mg/0.5 mL 5 mg subcut WK 08/30/23 08/30/23 Unknown subcutaneous pen injector (Mounjaro) tirzepatide 2.5 mg/0.5 mL 7.5 mg subcut WK 08/30/23 08/30/23 Unknown subcutaneous pen injector (Mounjaro) insulin glargine-yfgn 100 unit/mL 15 unit (0.15 mL) subcut DAILY #15 09/04/23 Unknown (3 mL) subcutaneous pen (Semglee mL (insulin glargine-yfgn) Pen) pen needle, diabetic 32 gauge x #100 ea 09/04/23 Unknown 532" (Pen Needle) Active Medications Generic Name Dose Route Start Last Admin Trade Name Freq PRN Reason Stop Dose Admin Atorvastatin Calcium 20 mg 09/01/23 21:00 09/06/23 21:18 Atorvastatin 20 Mg Tab PO 10/01/23 20:59 20 mg HS ANA Administration Cyanocobalamin 5,000 mcg 09/02/23 09:00 09/07/23 07:43 Cyanocobalamin (B-12) 2,500 Mcg Tablet SL 10/02/23 08:59 5,000 mcg DAILY ANA Administration Lisinopril/HCTZ 1 tab 09/03/23 09:00 09/07/23 07:43 Lisinopril/Hctz 20/12.5mg 1 Tab Tab PO 10/03/23 08:59 1 tab DAILY ANA Administration Cefazolin Sodium 2,000 mg in 15 mls @ 3.75 mls/min 09/04/23 16:30 09/07/23 05:10 Ancef 2000mg IV 10/16/23 16:29 3.75 mls/min Q8 ANA Administration Insulin Aspart 5 units 08/27/23 17:00 09/07/23 08:22 Insulin Aspart Per Unit Charge SC 09/26/23 16:59 5 units TIDM ANA Administration Insulin Aspart 0 units 09/01/23 18:25 09/07/23 08:23 Insulin Aspart Per Unit Charge SC 10/01/23 18:24 4 units ACHS ANA Administration Insulin Glargine 15 units 08/27/23 21:00 09/06/23 21:36 Lantus Per Unit Charge SQ 09/26/23 20:59 15 units HS ANA Administration Metoprolol Tartrate 25 mg 09/01/23 21:00 09/07/23 07:44 Metoprolol Tartrate 25 Mg Tab PO 10/01/23 20:59 Not Given BID ANA Pantoprazole Sodium 40 mg 09/02/23 09:00 09/07/23 07:44 Pantoprazole 40 Mg Tab PO 10/02/23 08:59 40 mg DAILY ANA Administration (3) Cellulitis Laterality: right Site of cellulitis: extremity Site of cellulitis of extremity: lower extremity Qualified Code(s): L03.115 - Cellulitis of right lower limb
--- NOTE | 2023-09-07 11:52 | Hospitalist Progress Note ---
Date of Service September 07, 2023 Assessment & Plan (1) Diabetic infection of right foot: Plan: Patient with abscess and surrounding cellulitis of the right foot, had I&D and bone biopsy right phalanx on 08/28 and found to have OM of 5th MT head as well as abscess and infection 5th digit Podiatry felt 5th MT involvement and went on to have a 2nd surgery 08/31 for amputation of the fifth ray Bilateral arterial Dopplers of the lower extremities and ABIs are normal Blood cultures NGTD ESR and CRP continue to be trending downward Wound cultures and bone culture all growing group B strep ID consult appreciated--> was on Unasyn and then de-escalated to cefazolin 2 g IV every 8 hours. Bone path margins from 08/31 show osteomyelitis of the metatarsal head but no mention of the proximal metatarsal-discussed with Pathologist and a new bone section will need to be cut and prepared to assess for this from the prox margin of the metatarsal--> will take another 48hrs. He will stay in hospital for this result If no residual infection of the bone, can dc on Amoxicillin 1 g Po q8 hrs ( cr cl >100) for 10 day post amputation. EOT 09/11. If residual osteomyelitis/ positive margins post amputation on 08/31 , he will need a PICC and 6 weeks of Ancef 2g Iv q8 hrs EOT 10/12 If [facility] abx, then weekly cbc with diff, bmp, lft, esr, crp on abx and follow up with local ID and podiatry. Wound Vac has been placed-Home health will manage wound VAC dressing changes Tue (2) Type 2 diabetes mellitus: Plan: Patient's home regimen held on admission-hold glipizide,metformin, Mounjaro Continue Lantus/Novolog while in hospital Uncontrolled with hyperglycemia with A1C 11.3% Continue BSG checks, hypoglycemic protocol Diabetes education involved as patient will be discharged on insulin, resume Mounjaro and metformin, but DC glipizide after starting insulin Per DM education: He takes Metformin 1000mg BID at home. Recently started the Mounjaro 2.5mg weekly. First dose was 08/25. So far seems to be tolerating it well. He does have a glucose meter/supplies. He is agreeable to starting the Semglee. Plan upon discharge: 1.) Start Semglee 15 units daily. 2.) Continue Metformin and Mounjaro. 3.) SMBG 2x/day- fasting and evening (before supper or before bed). 4.) Notify provider of BG values > 200 x 3 days or any value < 80. 5.) Regular/balanced meals; increase protein intake to support healing. Recommend sending prescriptions to pharmacy day before discharge in case same has to be ordered. Pt will need the following prescriptions: 1.) Semglee Pen. 2.) Pen Needle 32 gauge x - to inject 1x/day. (3) HTN (hypertension), benign: Plan: Blood pressures are controlled Continue home lisinopril/HCT and metoprolol. (4) Peripheral neuropathy: Plan: Patient with peripheral neuropathy on physical exam Most likely secondary to diabetes. Should have outpatient follow-up with PCP B12 wnl (5) GERD (gastroesophageal reflux disease): Plan: continue PPI, no issues reported (6) Hyperlipidemia: Plan: continue statin (7) Iron deficiency: Plan: Hgb 12-13s with microcytic anemia No overt bleeding. B12 and TSH are normal Ferritin not elevated even w/ infection and suspect actually lower, w/ EMMANUEL underlying Serum iron 35, transferrin sat low at 14% Should start oral iron after discharge as he has been constipated here so will not start now Follow-up with PCP for GI evaluation for iron deficiency anemia to include EGD and colonoscopy Plan DVT ppx: Discontinued Lovenox as patient was having nosebleeds, continue SCD to left leg Dispo: continued stay on med/surg and may need to make arrangements for IV antibiotics Discussed care with podiatry and infectious disease on 09/05 and again on 09/06 as well as with Pathology on 09/06 Admission and Anticipated Discharge Date Admission Date: August 29, 2023 Subjective Pt has no complaints. Discussed that bone margin pathology now won't be available till Tuesday and he is ok with staying 2 more days rather than going home with po abx and risking needing to come back for PICC and IV abx as an outpt Discussed care at length with Pathologist, Farm Equipment Engineer, and skilled nursing case manager as well Physical Exam Constitutional: WD/WN, vitals as above Respiratory: normal respiratory effort, lungs clear to auscultation Cardiovascular: RRR, no murmur, no edema Gastrointestinal (Abdomen): normal bowel sounds, soft, nontender, no hepatosplenomegaly Musculoskeletal: Extremities: + extremities abnormal to inspection (Right lateral foot with wound VAC in place, mild erythema dorsal foot) Psychiatric: A+Ox3, euthymic affect Results & Data Results & Data Vital Signs (Past 12 Hours) Vital Signs Temp Pulse Pulse Resp BP BP Pulse Ox 09/07/23 11:34 37.0 C 70 17 120/72 96 09/07/23 07:28 36.6 C 57 L 15 114/64 94 09/07/23 07:04 36.8 C 50 L 18 124/66 98 O2 Del Method 09/07/23 11:34 Room Air 09/07/23 07:28 Room Air 09/07/23 07:04 Room Air Laboratory Results CBC, BMP, Magnesium, ESR, CRP reviewed PG Care Time/CCT Total # of Minutes Spent Total Time Spent with Patient: Total time spent is greater than 50% in coordination of care (as documented) at patient's floor/unit and/or counseling patient: Coding Level of Care Code 41325 SUB INP/OBS CARE 2/35MIN Diagnoses Diabetic infection of right foot E11.628; L08.9 Type 2 diabetes mellitus E11.9 HTN (hypertension), benign I10 Peripheral neuropathy G62.9 GERD (gastroesophageal reflux disease) K21.9 Hyperlipidemia E78.5 Iron deficiency E61.1
--- NOTE | 2023-09-08 16:20 | Hospitalist Progress Note ---
Date of Service September 08, 2023 Assessment & Plan (1) Diabetic infection of right foot: Plan: Patient with abscess and surrounding cellulitis of the right foot, had I&D and bone biopsy right phalanx on 08/28 and found to have OM of 5th MT head as well as abscess and infection 5th digit Podiatry felt 5th MT involvement and went on to have a 2nd surgery 08/31 for amputation of the fifth ray Bilateral arterial Dopplers of the lower extremities and ABIs are normal Blood cultures negative ESR and CRP trending downward Wound cultures and bone culture all growing group B strep ID consult appreciated--> was on Unasyn and then de-escalated to cefazolin 2 g IV every 8 hours. Bone path margins from 08/31 show osteomyelitis of the metatarsal head but no mention of the proximal metatarsal-discussed with Pathologist and a new bone section will need to be cut and prepared to assess for this from the prox margin of the metatarsal--> will take another 48hrs. He will stay in hospital for this result hopefully available on 09/08 If no residual infection of the bone, can dc on Amoxicillin 1 g Po q8 hrs ( cr cl >100) for 10 day post amputation. EOT 09/11. If residual osteomyelitis/ positive margins post amputation on 08/31 , he will need a PICC and 6 weeks of Ancef 2g Iv q8 hrs EOT 10/12 If intermodal customer service abx, then weekly cbc with diff, bmp, lft, esr, crp on abx and follow up with local ID and podiatry. Wound Vac has been placed-Home health will manage wound VAC dressing changes Tue (2) Type 2 diabetes mellitus: Plan: Patient's home regimen held on admission-hold glipizide,metformin, Mounjaro Continue Lantus/Novolog while in hospital-he is on 15 units once daily of Lantus and NovoLog 5 units with each meal plus correction factor and carb ratio Uncontrolled with hyperglycemia with A1C 11.3%. Remains with some occasional hyperglycemia here-will lower correction factor to 30 Continue BSG checks, hypoglycemic protocol Diabetes education involved as patient will be discharged on insulin, resume Mounjaro and metformin, but DC glipizide after starting insulin Per DM education: He takes Metformin 1000mg BID at home. Recently started the Mounjaro 2.5mg weekly. First dose was 08/25. So far seems to be tolerating it well. He does have a glucose meter/supplies. He is agreeable to starting the Semglee. Plan upon discharge: 1.) Start Semglee 15 units daily. 2.) Continue Metformin and Mounjaro. 3.) SMBG 2x/day- fasting and evening (before supper or before bed). 4.) Notify provider of BG values > 200 x 3 days or any value < 80. 5.) Regular/balanced meals; increase protein intake to support healing. Recommend sending prescriptions to pharmacy day before discharge in case same has to be ordered. Pt will need the following prescriptions: 1.) Semglee Pen. 2.) Pen Needle 32 gauge x - to inject 1x/day. (3) HTN (hypertension), benign: Plan: Blood pressures are controlled Continue home lisinopril/HCT and metoprolol. (4) Peripheral neuropathy: Plan: Patient with peripheral neuropathy on physical exam Most likely secondary to diabetes. Should have outpatient follow-up with PCP B12 wnl (5) GERD (gastroesophageal reflux disease): Plan: continue PPI, no issues reported (6) Hyperlipidemia: Plan: continue statin (7) Iron deficiency: Plan: Hgb 12-13s with microcytic anemia. No overt bleeding. B12 and TSH are normal Ferritin not low likely secondary to acute phase reactant from ongoing infection Serum iron 35, transferrin sat low at 14% Should start oral iron after discharge as he has been constipated here so will not start now Follow-up with PCP for GI evaluation for iron deficiency anemia to include EGD and colonoscopy Plan DVT ppx: Discontinued Lovenox as patient was having nosebleeds, continue SCD to left leg Dispo: continued stay on med/surg and may need to make arrangements for IV antibiotics with case management if bone pathology comes back positive for residual osteomyelitis Admission and Anticipated Discharge Date Admission Date: August 29, 2023 Subjective Patient has no complaints except he would like to take a shower. I discussed this with the wound care nurse who will let him shower while his wound VAC is removed tomorrow before she puts the new VAC back on. Otherwise doing well. Today is his birthday. Physical Exam Constitutional: WD/WN, vitals as above Respiratory: normal respiratory effort, lungs clear to auscultation Cardiovascular: RRR, no murmur, no edema Musculoskeletal: Extremities: + extremities abnormal to inspection (Right lateral foot with wound VAC in place, mild erythema dorsal foot) Psychiatric: A+Ox3, euthymic affect Results & Data Results & Data Vital Signs (Past 12 Hours) Vital Signs Temp Pulse Resp BP BP Pulse Ox O2 Del Method 09/08/23 15:59 36.9 C 89 16 114/64 98 Room Air 09/08/23 07:52 36.8 C 52 L 16 129/73 95 Room Air Laboratory Results No labs to review PG Care Time/CCT Total # of Minutes Spent Total Time Spent with Patient: Total time spent is greater than 50% in coordination of care (as documented) at patient's floor/unit and/or counseling patient: Coding Level of Care Code 72504 SUB INP/OBS CARE 2/35MIN Diagnoses Diabetic infection of right foot E11.628; L08.9 Type 2 diabetes mellitus E11.9 HTN (hypertension), benign I10 Peripheral neuropathy G62.9 GERD (gastroesophageal reflux disease) K21.9 Hyperlipidemia E78.5 Iron deficiency E61.1
[2023-09-08 22:24] VITALS: RESP 18
[2023-09-09 07:16] LABS: Basophils # (auto) 0.11 K/uL (0.00-0.20); Basophils % (auto) 1.2 %; Eosinophils # (auto) 0.26 K/uL (0.00-0.50); Eosinophils % (auto) 2.9 %; Hematocrit (blood only) 40.9 % (42.0-52.0); Hemoglobin 12.7 g/dl (14.0-18.0); Immature Granulocytes # (auto) 0.03 K/uL (0.01-0.20); Immature Granulocytes % (auto) 0.3 %; Lymphocytes # (auto) 2.27 K/uL (1.20-3.40); Lymphocytes % (auto) 25.4 %; Mean Corpuscular Hemoglobin 24.9 pg (25.0-34.0); Mean Corpuscular Hgb Conc 31.1 g/dL (32.0-36.0); Mean Corpuscular Volume 80.2 fL (80.0-100.0); Monocytes # (auto) 0.58 K/uL (0.11-0.59); Monocytes % (auto) 6.5 %; Neutrophils % (auto) 63.7 %; Platelet Count 397 K/uL (130-400); RDW Coefficient of Variation 14.6 % (11.5-14.5); White Blood Count 8.95 K/ul (4.8-10.8)
[2023-09-09 07:28] LABS: Albumin Level 3.8 gm/dl (3.4-5.0); Bilirubin,Total 0.4 mg/dl (0.2-1.0); C Reactive Protein 1.26 mg/dl (0-0.5); Calcium 9.2 mg/dl (8.6-10.3); Creatinine Clr Calc Pharmacy 85.2 ml/min; Est GFR (African American) 77.8 ml/min; Est GFR (Non-African American) 67.1 ml/min; Globulin 3.7 gm/dl (2.5-4.0); Potassium 4.1 mmol/L (3.5-5.1); Total Protein 7.5 gm/dl (6.0-8.3)
[2023-09-09 07:51] VITALS: TEMP 97.7
[2023-09-09 07:54] VITALS: O2SAT 98
[2023-09-09 12:51] VITALS: BP 129/73; PULSE 70
--- NOTE | 2023-09-09 13:03 | Discharge Summary ---
Discharge Summary Date of Service September 09, 2023 Principal Dx & Hospital Course #1 = Principal Diagnosis (1) Diabetic infection of right foot: Patient with abscess and surrounding cellulitis of the right foot, had I&D and bone biopsy right phalanx on 08/28 and found to have OM of 5th MT head as well as abscess and infection 5th digit Podiatry felt 5th MT involvement and went on to have a 2nd surgery 08/31 for amputation of the fifth ray Bilateral arterial Dopplers of the lower extremities and ABIs are normal Blood cultures negative ESR and CRP trending downward Wound cultures and bone culture all growing group B strep ID consult appreciated--> was on Unasyn and then de-escalated to cefazolin 2 g IV every 8 hours. Bone path margins from 08/31 show osteomyelitis of the metatarsal head but no mention of the proximal metatarsal-discussed with Pathologist and a new bone section will need to be cut and prepared to assess for this from the prox margin of the metatarsal--> will take another 48hrs. He will stay in hospital for this result hopefully available on 09/08 If no residual infection of the bone, can dc on Amoxicillin 1 g Po q8 hrs ( cr cl >100) for 10 day post amputation. EOT 09/11. If residual osteomyelitis/ positive margins post amputation on 08/31 , he will need a PICC and 6 weeks of Ancef 2g Iv q8 hrs EOT 10/12 If skilled nursing abx, then weekly cbc with diff, bmp, lft, esr, crp on abx and follow up with local ID and podiatry. Wound Vac has been placed-Home health will manage wound VAC dressing changes Tue (2) Type 2 diabetes mellitus: Patient's home regimen held on admission-hold glipizide,metformin, Mounjaro Continue Lantus/Novolog while in hospital-he is on 15 units once daily of Lantus and NovoLog 5 units with each meal plus correction factor and carb ratio Uncontrolled with hyperglycemia with A1C 11.3%. Remains with some occasional hyperglycemia here-will lower correction factor to 30 Continue BSG checks, hypoglycemic protocol Diabetes education involved as patient will be discharged on insulin, resume Mounjaro and metformin, but DC glipizide after starting insulin Per DM education: He takes Metformin 1000mg BID at home. Recently started the Mounjaro 2.5mg weekly. First dose was 08/25. So far seems to be tolerating it well. He does have a glucose meter/supplies. He is agreeable to starting the Semglee. Plan upon discharge: 1.) Start Semglee 15 units daily. 2.) Continue Metformin and Mounjaro. 3.) SMBG 2x/day- fasting and evening (before supper or before bed). 4.) Notify provider of BG values > 200 x 3 days or any value < 80. 5.) Regular/balanced meals; increase protein intake to support healing. Recommend sending prescriptions to pharmacy day before discharge in case same has to be ordered. Pt will need the following prescriptions: 1.) Semglee Pen. 2.) Pen Needle 32 gauge x - to inject 1x/day. (3) HTN (hypertension), benign: Blood pressures are controlled Continue home lisinopril/HCT and metoprolol. (4) Peripheral neuropathy: Patient with peripheral neuropathy on physical exam Most likely secondary to diabetes. Should have outpatient follow-up with PCP B12 wnl (5) GERD (gastroesophageal reflux disease): continue PPI, no issues reported (6) Hyperlipidemia: continue statin (7) Iron deficiency: Hgb 12-13s with microcytic anemia. No overt bleeding. B12 and TSH are normal Ferritin not low likely secondary to acute phase reactant from ongoing infection Serum iron 35, transferrin sat low at 14% Should start oral iron after discharge as he has been constipated here so will not start now Follow-up with PCP for GI evaluation for iron deficiency anemia to include EGD and colonoscopy Plan DVT ppx: Discontinued Lovenox as patient was having nosebleeds, continue SCD to left leg Dispo: Home today, September 08, with home health service and wound VAC. Repeat pathology report negative for any residual osteomyelitis after surgery. He will remain on oral amoxicillin for several more days. Admission HPI Per Admitting Provider Patient is a 62-year-old male who presents to the hospital with diabetic foot infection. Patient states that he has a history of diabetes though does not know what he is currently taking. Denies any other medical history. Patient had a sore on the underside of his right foot since Tuesday. Had some bloody discharge approximately 3 days ago. States that it is not painful. Though does state that he has decreased feeling on bilateral feet. He also noticed approximately 3 days ago the redness started to move up his leg. Denies any fever, chills, nausea, vomiting, abdominal pain, chest pain, cough, or congestion. Discharge Exam General-alert and oriented x3, no fever, no chills HEENT-head atraumatic and normocephalic, pupils equal and reactive to light, extraocular muscles intact Neck-no lymphadenopathy or thyromegaly, trachea midline Chest-clear to auscultation. No rales, wheezing or rhonchi Cardiac-regular rate and rhythm, normal S1 and S2 Abdomen-normal bowel sounds, no hepatosplenomegaly Extremities-right lateral foot heavily bandaged with wound VAC in place Neuro-cranial nerves II through XII intact, motor and sensory function within normal limits, strength symmetrical, no focal deficits Psych-normal affect, normal mood Updated Medication List Medication Instructions Recorded Confirmed Type None (Patient States No Home Meds) ##0 11/20/09 History atorvastatin 20 mg tablet 20 mg PO HS 08/30/23 08/30/23 History blood sugar diagnostic (OneTouch 08/30/23 08/30/23 History Verio test strips) cyanocobalamin (vitamin B-12) 5,000 mcg sublingual DAILY 08/30/23 08/30/23 History 2,500 mcg sublingual tablet (Vitamin B-12) gemfibrozil 600 mg tablet 600 mg PO BID 08/30/23 08/30/23 History glipizide 10 mg tablet, extended 10 mg PO BID 08/30/23 08/30/23 History release 24 hr lisinopril 20 1 tab PO DAILY 08/30/23 08/30/23 History mg-hydrochlorothiazide 12.5 mg tablet metformin 1,000 mg tablet 1,000 mg PO BID 08/30/23 08/30/23 History metoprolol tartrate 25 mg tablet 25 mg PO BID 08/30/23 08/30/23 History omeprazole 40 mg capsule,delayed 40 mg PO DAILY 08/30/23 08/30/23 History release tirzepatide 2.5 mg/0.5 mL 2.5 mg subcut WK 08/30/23 08/30/23 History subcutaneous pen injector (Mounjaro) tirzepatide 2.5 mg/0.5 mL 5 mg subcut WK 08/30/23 08/30/23 History subcutaneous pen injector (Mounjaro) tirzepatide 2.5 mg/0.5 mL 7.5 mg subcut WK 08/30/23 08/30/23 History subcutaneous pen injector (Mounjaro) insulin glargine-yfgn 100 unit/mL 15 unit (0.15 mL) subcut DAILY #15 09/04/23 Rx (3 mL) subcutaneous pen (Semglee mL (insulin glargine-yfgn) Pen) pen needle, diabetic 32 gauge x #100 ea 09/04/23 Rx " (Pen Needle) amoxicillin 500 mg capsule 1,000 mg (2 x 500 mg) PO TID #18 09/09/23 Rx caps Hospital Stay Data Consultations 08/26/23 19:10 ED Decision to Admit Stat 08/28/23 14:46 Consult Podiatry Routine 08/31/23 15:43 Consult Infectious Diseases Routine Procedures Performed Operation Date: 09/01/23 07:00 Actual Procedures p Right Foot Fifth Ray Resection(Right) - Jack Trujillo DPM Diagnostic Imagining Performed 08/26/23 18:27 CT foot RT w con Stat 09/05/23 10:02 US arterial duplex LE BI Routine Pending Results Patient Have Any Pending Studies at Discharge: No Discharge Instructions Given to Patient (Per Discharging Provider) You have been hospitalized for foot infection, likely due to uncontrolled diabetes. Unfortunately the infection appears to have gone to the bone and you underwent surgery for resection of the infected bone and pathology on repeat shows __no residual infection . Cultures from the wound have grown GROUP B STREP which we provided IV antibiotics for while in the hospital and at discharge you are being continued on the following antibiotics at discharge: * Amoxicillin 1 gram by mouth three times daily for 3 more days. * Please monitor for any increased/significant/foul smelling diarrhea while on antibiotics and alert your primary care provider if this happens to monitor for cdiff. You have been set up with a wound vac and home health nursing for continued wo und vac at discharge. Regarding your underlying diabetes, you are not well controlled as you A1c (measure of average blood sugar over the past 3 months) was 11.3! We consulted the elementary educator while in the hospital and made adjustments to your medications to help with better blood sugar control and wound healing. At discharge, we are going to be starting on ONCE DAILY INSULIN with SEMGLEE( or lantus pen ) 15 units daily. You are to continue your Metformin as well as Mounjaro, however your GLIPIZIDE has been DISCONTINUED to prevent hypoglycemia. You should be checking your sugars 2x/day (fasting in the morning and before supper/bed) and keep a log. You should notify your primary care provider for any blood sugar values over 200 for 3 days or any value less than 80 for further instructions. You can discuss with primary care in follow up about possible referral to endocrinology if needed additional control/having issues with getting this level down to prevent skilled nursing complications/other medical problems. Please follow up about neuropathy however this could be from longstanding uncontrolled diabetes. You also are suspected to have some iron deficiency anemia and iron levels were low. We did give a dose of Venofer (IV iron) while in the hospital and if you have not had a colonoscopy for screening you should have one in follow up once recovered from the current infection. Please follow up with primary care in the next 7-10 days to ensure continued improvement at discharge. Please follow up with podiatry for ongoing follow up care. Please continue to monitor for any increased redness/spreading/pain or fever/chills, chest pain or shortness of breath and return to ER or for any other symptoms concerning for you. It has been a pleasure being a part of the medical team providing for you while you have been in the hospital. Take care! Total Time Total Time Spent Total Time Spent (In Minutes): 45 minutes Coding Level of Care Code 56625 INP/OBS DISCH >30 MIN Diagnoses Diabetic infection of right foot E11.628; L08.9 Type 2 diabetes mellitus E11.9 HTN (hypertension), benign I10 Peripheral neuropathy G62.9 GERD (gastroesophageal reflux disease) K21.9 Hyperlipidemia E78.5 Iron deficiency E61.1
--- NOTE | 2023-09-15 22:08 | Operative Report ---
Post Operative Report Pre & Post Diagnosis Operation Date: 09/01/23 07:00 Pre-Op Diagnosis: (1) Diabetic infection of right foot: (2) Cellulitis: (3) Osteomyelitis of foot, right, acute: Post-Op Diagnosis: (1) Diabetic infection of right foot: (2) Cellulitis: (3) Osteomyelitis of foot, right, acute: I identified the patient and participated in the time-out.: Yes Procedure Operation Date: 09/01/23 07:00 Actual Procedures p Right Foot Fifth Ray Resection(Right) - Jack Trujillo DPM Surgeon Jack Trujillo DPM Manager Ent None Estimated Blood Loss 30 Findings Consistent with Post-Op Diagnosis Clinically clear margins obtained, but large soft tissue deficit remains. Significant purulence noted tracking across the plantar medial foot, to the medial longitudinal arch, along the extrinsic flexor tendons.No deeper bone involvement noted medially Specimens Right fifth metatarsal sent for culture and sensitivity. Remainder of right fifth ray sent for pathology. Anesthesia Type MAC Complications none Disposition Accompanied Patient To Recovery: Yes Disposition: Recovery Room Indications Mr. Vides is a recent hospital consult of ours who we previously performed an I&D on during this hospitalization. It was immediately noted that the ulcer also had significant underlying osteomyelitis and that he would benefit from a more definitive fifth ray resection. He could still consider IV antibiotics and wound care, though resection would be more definitive and successful, most likely. Preoperative instructions, postoperative instructions, relative risks, and outcomes were all discussed. Consent was obtained for this procedure. All questions were answered. Description of Procedure The patient was brought to the operating room placed on the operating table in the supine position. Following administration of IV sedation, local analgesia was obtained utilizing 20 cc of half percent Marcaine in a local block fashion. The right lower extremity was scrubbed prepped and draped in the usual aseptic manner and a pneumatic ankle tourniquet was applied to the patient's right ankle. The limb was elevated, exsanguinated, and the tourniquet was inflated to 250 mmHg. Attention was directed to the right foot laterally where 2 converging semielliptical incisions were made around the ulceration and the fifth ray. The incisions were forced to be more proximal than ideal because of the location of the ulcer and prior bony involvement. Incision was carried down to the level of the bone utilizing sharp and blunt dissection techniques with care taken to cauterize and ligate any superficial bleeding vessels as well as retract any vital neurovascular structures. The fifth metatarsal was transected proximal to any obvious signs of osteomyelitis. The fifth ray was passed off to the back table after further soft tissue dissection to remove the infected ray. There was still significant purulent drainage tracking towards the medial aspect of the foot along the plantar aspect. This was flushed with copious amounts of sterile saline and nonviable tissue was removed utilizing sharp dissection. No further bone involvement was noted. The incision and surgical site were then flushed with copious amounts of sterile saline and packed with packing gauze. The surgical site was dressed with Xeroform gauze, 4 x 4 gauze, Kerlix, and an Albert wrap. The tourniquet was deflated and hyperemia was noted to the digits. The patient tolerated the procedure well and was transferred to the recovery room with vital signs stable and vascular status intact to the feet. Followwing postoperative monitoring, the patient prescriptions discussed with him prior to surgery. I attest to the content of the Intraoperative Record and any orders documented therein. Any exceptions are noted below.
== END 2023-09-09 14:45 | disposition home health service (06) | DRG 617 ==
LOC: 3W 15:41 → ED 15:41 → SUATTDRO 19:33 → 3W 20:28 → SUATTDRO 08-29 12:16 → 3W 08-31 09:18